=== PATIENT | male | born 1980 | race Hispanic/Latino ===

== ENCOUNTER 2018-04-10 17:46 | Emergency (ER) | payer BC ==
[2018-04-10] MEDS ORDERED: DEXAMETHASONE 10 MG/ML VIAL ONE (18:30)
[2018-04-10] MEDS ORDERED: DIAZEPAM 5 MG TABLET ONE (18:31)
[2018-04-10] MEDS ORDERED: HYDROCODONE/APAP 10/325 TAB ONE (18:31)
[2018-04-10] MEDS ORDERED: KETOROLAC 30 MG/ML INJ ONE (18:32)
--- NOTE | 2018-04-10 19:18 | RAD REPORT ---
EXAM DESCRIPTION: RAD - Lumbar Spine 3 Views - 04/10/2018 6:54 pm CLINICAL HISTORY: Back pain FINDINGS: The alignment of the lumbar spine is satisfactory. No fracture or dislocation is seen. Minimal spondylosis involves the distal lumbar spine. Six lumbar vertebra are present with sacralizat ion of L6
--- NOTE | 2018-04-10 19:30 | ER ---
Nurse's Notes [facility] Name: Francisco Dean Age: 37 yrs Sex: Male : 1980 Arrival Date: 04/10/2018 Time: 17:50 Bed 26 Private MD: Diagnosis: Sprain of ligaments of lumbar spine Presentation: 04/10 17:50 Presenting complaint: Patient states: low back pain started 2-3 days ago. Denies sv injury. Transition of care: patient was not received from another setting of care. Onset of symptoms was April 08, 2018. Care prior to arrival: None. 17:50 Method Of Arrival: Ambulatory sv 17:50 Acuity: WALESKA 4 sv 18:06 Risk Assessment: Do you want to hurt yourself or someone else? Patient reports no eb1 desire to harm self or others. Initial Sepsis Screen: Does the patient meet any 2 criteria? No. Patient's initial sepsis screen is negative. Does the patient have a suspected source of infection? No. Patient's initial sepsis screen is negative. Historical: - Allergies: 17:52 No Known Allergies; sv - Home Meds: 17:52 None [Active]; sv - PMHx: 17:52 L3,4,5 bulging; knee pain; sv - PSHx: 17:52 Knee surgery; sv - Immunization history:: Adult Immunizations up to date. - Social history:: Smoking status: Patient/guardian denies using tobacco. - Ebola Screening: : No symptoms or risks identified at this time. Screenin:06 Abuse screen: Denies threats or abuse. Nutritional screening: No deficits noted. eb1 Tuberculosis screening: No symptoms or risk factors identified. Fall Risk None identified. Assessment: 18:04 General: Appears uncomfortable, obese, Behavior is calm, cooperative, appropriate for eb1 age. Pain: Complains of pain in back. Neuro: Level of Consciousness is awake, alert, obeys commands, Oriented to person, place, time, situation, Appropriate for age. Cardiovascular: No deficits noted. Respiratory: No deficits noted. GI: No deficits noted. : No deficits noted. Musculoskeletal: Reports pain in lumbar area. Vital Signs: 17:52 BP 146 / 96 RA Sitting (auto/lg); Pulse 92; Resp 20; Temp 98.6(TE); Pulse Ox 93% ; sv Weight 161.03 kg; Height 6 ft. 0 in. (182.88 cm); Pain 8/10; 19:25 BP 106 / 62; Pulse 70; Resp 18; Pulse Ox 94% on R/A; eb1 17:52 Body Mass Index 48.15 (161.03 kg, 182.88 cm) ED Course: 17:50 Patient arrived in ED. sv 17:51 Triage completed. 17:52 Arm band placed on left wrist. 17:57 Irineo Morales PA is PHCP. [facility] 17:57 Des Mcallister MD is Attending Physician. [facility] 18:07 Patient has correct armband on for positive identification. eb1 18:54 Lumbar Spine (3 Views) XRAY In Process Unspecified. EDMS 18:55 X-ray completed. Patient tolerated procedure well. Patient moved back from radiology. 1 19:26 No provider procedures requiring assistance completed. eb1 19:45 Patient did not have IV access during this emergency room visit. eb1 Administered Medications: 18:33 Drug: Brushton 10 mg-325 mg 1 tabs Route: PO; eb1 19:47 Follow up: Response: No adverse reaction eb1 18:33 Drug: Valium 5 mg Route: PO; eb1 19:47 Follow up: Response: No adverse reaction eb1 18:36 Drug: Dexamethasone 10 mg Route: IM; Site: left gluteus; eb1 19:46 Follow up: Response: No adverse reaction eb1 18:37 Drug: Ketorolac 60 mg Route: IM; Site: left gluteus; eb1 19:47 Follow up: Response: No adverse reaction eb1 Outcome: 19:29 Discharge ordered by . [facility] 19:46 Discharged to home ambulatory, with family. eb1 19:46 Condition: stable 19:46 Discharge instructions given to patient, family, Instructed on discharge instructions, follow up and referral plans. medication usage, Demonstrated understanding of instructions, follow-up care, medications, Prescriptions given X 2. 19:47 Patient left the ED. eb1 Signatures: Dispatcher [employer] Lois Das RN RN Irineo Morales PA PA jmm Harvey, Martha [facility] Thais Enrique RN RN eb1
--- NOTE | 2018-04-10 19:30 | EDPHYS ---
Physician Documentation [facility] Name: Francisco Dean Age: 37 yrs Sex: Male : 1980 Arrival Date: 04/10/2018 Time: 17:50 Bed 26 Private MD: ED Physician Des Mcallister HPI: 04/10 18:26 This 37 yrs old Male presents to ER via Ambulatory with complaints of Back jmm Pain. 18:26 The patient presents with pain that is acute. The symptoms are located in the low back. jmm Onset: The symptoms/episode began/occurred gradually, 3 day(s) ago. The pain does not radiate. Associated signs and symptoms: Pertinent negatives: dysuria, fever, hematuria, incontinence, numbness, tingling, urinary retention, weakness. This is a 37 year old male with no chronic medical conditions that presents to the ED with midline low back pain worsening with change in position. Patient states having a history of bulging discs. . Historical: - Allergies: 17:52 No Known Allergies; sv - Home Meds: 17:52 None [Active]; sv - PMHx: 17:52 L3,4,5 bulging; knee pain; sv - PSHx: 17:52 Knee surgery; sv - Immunization history:: Adult Immunizations up to date. - Social history:: Smoking status: Patient/guardian denies using tobacco. - Ebola Screening: : No symptoms or risks identified at this time. ROS: 20:30 Constitutional: Negative for fever, chills, and weight loss, Cardiovascular: Negative jmm for chest pain, palpitations, and edema, Respiratory: Negative for shortness of breath, cough, wheezing, and pleuritic chest pain, Abdomen/GI: Negative for abdominal pain, nausea, vomiting, diarrhea, and constipation. 20:30 Skin: Negative for injury, rash, and discoloration. 20:30 Constitutional: Positive for 20:30 Back: Positive for pain at rest, pain with movement. 20:30 : Negative for urinary symptoms, hematuria, flank pain, testicular pain 20:30 Neuro: Negative for numbness, tingling, weakness. 20:30 All other systems are negative. Exam: 20:30 Head/Face: atraumatic. jmm 20:30 Constitutional: The patient appears alert, awake, uncomfortable. 20:30 Cardiovascular: Rate: normal, Rhythm: regular, Pulses: no pulse deficits are appreciated. 20:30 Respiratory: the patient does not display signs of respiratory distress, Respirations: normal. 20:30 Abdomen/GI: Inspection: obese Palpation: abdomen is soft and non-tender. 20:30 Back: midline tenderness appreciated, no cva tenderness. 20:30 Musculoskeletal/extremity: full extension appreciated of the great toes bilaterally. 20:30 Neuro: Orientation: is normal, Mentation: is normal, Motor: strength is normal, Gait: is steady. Vital Signs: 17:52 BP 146 / 96 RA Sitting (auto/lg); Pulse 92; Resp 20; Temp 98.6(TE); Pulse Ox 93% ; sv Weight 161.03 kg; Height 6 ft. 0 in. (182.88 cm); Pain 8/10; 19:25 BP 106 / 62; Pulse 70; Resp 18; Pulse Ox 94% on R/A; eb1 17:52 Body Mass Index 48.15 (161.03 kg, 182.88 cm) sv MDM: 18:25 Patient medically screened. [facility] 20:30 Differential diagnosis: muscle spasm, lumbar strain, disc herniation. Data reviewed: [facility] vital signs, nurses notes, radiologic studies, plain films. ED course: After administration of analgesics the patient states feeling much better. The patient is able to ambulate without difficulty. PE findings along with HPI are not concerning for cord compression/cauda equina. Patient will be prescribed muscle relaxers and anti inflammatories and is advised to follow up with PCP for reevaluation. The patient understood and agrees with the plan of care. . 03 18:26 Order name: Lumbar Spine (3 Views) XRAY; Complete Time: 19:23 [facility] Administered Medications: 18:33 Drug: Jamison 10 mg-325 mg 1 tabs Route: PO; eb1 19:47 Follow up: Response: No adverse reaction eb1 18:33 Drug: Valium 5 mg Route: PO; eb1 19:47 Follow up: Response: No adverse reaction eb1 18:36 Drug: Dexamethasone 10 mg Route: IM; Site: left gluteus; eb1 19:46 Follow up: Response: No adverse reaction eb1 18:37 Drug: Ketorolac 60 mg Route: IM; Site: left gluteus; eb1 19:47 Follow up: Response: No adverse reaction eb1 Disposition: 04/10/18 19:29 Discharged to Home. Impression: Sprain of ligaments of lumbar spine. - Condition is Stable. - Discharge Instructions: Back Pain, Adult. - Prescriptions for Ibuprofen 800 mg Oral Tablet - take 1 tablet by ORAL route every 8 hours As needed take with food; 30 tablet. orphenadrine citrate 100 mg Oral Tablet Sustained Release - take 1 tablet by ORAL route 2 times per day As needed; 20 tablet. - Medication Reconciliation Form, Thank You Letter, Antibiotic Education, Prescription Opioid Use, Work release form form. - Follow up: Private Physician; When: 1 - 2 days; Reason: Re-evaluation by your physician. - Notes: Please follow up with your primary care provider in 1 to 2 days for reevaluation. Please return to the ED if you develop increased pain, weakness, difficulty with urination or bowel movements or any other concering symptoms. Addendum: 04/14/2018 12:15 Co-signature as Attending Physician, Des Mcallister MD. g s Signatures: Dispatcher [employer] Lois Das RN RN Irineo Bassett PA PA jmm Starr, Gregory, MD MD gs Basinger, Emily, RN RN eb1 Corrections: (The following items were deleted from the chart) 04/10 19:47 19:29 04/10/2018 19:29 Discharged to Home. Impression: Sprain of ligaments of lumbar eb1 spine. Condition is Stable. Forms are Medication Reconciliation Form, Thank You Letter, Antibiotic Education, Prescription Opioid Use. Follow up: Private Physician; When: 1 - 2 days; Reason: Re-evaluation by your physician. blank
== END 2018-04-10 19:47 | disposition home or self-care (01) ==
LOC: ER 17:46
DX: S33.5XXA Sprain of ligaments of lumbar spine, initial encounter (principal)
CPT/HCPCS: 72100; 96372; 99283; J1100

== ENCOUNTER 2019-02-23 23:53 | Emergency (ER) | payer BC ==
[2019-02-24] MEDS ORDERED: KETOROLAC 30 MG/ML INJ ONE (00:46)
--- NOTE | 2019-02-24 01:04 | EDPHYS ---
Physician Documentation [facility] Name: Francisco Dean Age: 38 yrs Sex: Male : 1980 Arrival Date: 02/23/2019 Time: 23:54 Bed 8 Private MD: Nikolas Alexandra T ED Physician Ishan Smalls HPI: 02/24 00:27 This 38 yrs old Male presents to ER via Wheelchair with complaints of Back cp Pain. 00:27 The patient presents with pain that is acute, with no known mechanism of injury, and cp decreased range of motion. The symptoms are located in the low back. 00:27 Onset: The symptoms/episode began/occurred today. The pain does not radiate. Associated cp signs and symptoms: Pertinent negatives: abdominal pain, constipation, dysuria, fever, hematuria, incontinence, numbness, urinary retention, weakness. 00:27 The problem was sustained when bending over, while playing with grandchildren. cp Modifying factors: the patient symptoms are aggravated by movement. Severity of symptoms: in the emergency department the symptoms are unchanged, despite home interventions. Historical: - Allergies: 00:03 No Known Allergies; lp1 - Home Meds: 00:03 naproxen Oral [Active]; lp1 - PMHx: 00:03 knee pain; L3,4,5 bulging; lp1 - PSHx: 00:03 Knee surgery; lp1 - Immunization history:: Adult Immunizations up to date. - Social history:: Smoking status: Patient/guardian denies using tobacco. - Ebola Screening: : No symptoms or risks identified at this time. ROS: 00:35 Constitutional: Negative for body aches, chills, fever, poor PO intake. cp 00:35 Eyes: Negative for injury, pain, redness, and discharge. cp 00:35 ENT: Negative for drainage from ear(s), ear pain, sore throat, difficulty swallowing, difficulty handling secretions. 00:35 Cardiovascular: Negative for chest pain, edema, palpitations. 00:35 Respiratory: Negative for cough, shortness of breath, wheezing. 00:35 Abdomen/GI: Negative for abdominal pain, vomiting, diarrhea, constipation, black/tarry stool, rectal bleeding, bowel incontinence. 00:35 Back: Positive for pain at rest, pain with movement, of the lumbar area. 00:35 : Negative for urinary symptoms, flank pain, difficulty urinating, bladder incontinence, testicular pain 00:35 Skin: Negative for rash. 00:35 Neuro: Negative for altered mental status, dizziness, headache, numbness, weakness. 00:35 All other systems are negative. Exam: 00:40 Constitutional: The patient appears in no acute distress, alert, awake, cp non-diaphoretic, non-toxic, well developed, well nourished, obese. 00:40 Head/Face: Normocephalic, atraumatic. cp 00:40 Eyes: Periorbital structures: appear normal, Conjunctiva: normal, no exudate, no cp injection, Sclera: no appreciated abnormality, Lids and lashes: appear normal, bilaterally. 00:40 ENT: External ear(s): are unremarkable, Nose: is normal, Mouth: Lips: moist, Oral mucosa: moist, Posterior pharynx: Airway: no evidence of obstruction, patent. 00:40 Neck: ROM/movement: is normal, is supple, without pain, no range of motions limitations, no meningismus, no nuchal rigidity. 00:40 Chest/axilla: Inspection: normal, Palpation: is normal, no crepitus, no tenderness. 00:40 Cardiovascular: Rate: tachycardic, Rhythm: regular. 00:40 Respiratory: the patient does not display signs of respiratory distress, Respirations: normal, no use of accessory muscles, no retractions, no splinting, no tachypnea, labored breathing, is not present, Breath sounds: are clear throughout, no decreased breath sounds, no stridor, no wheezing. 00:40 Abdomen/GI: Inspection: obese Palpation: abdomen is soft and non-tender, in all quadrants. 00:40 Back: pain, that is moderate, of the lumbar area, ROM is painful, with all movement. 00:40 Neuro: Orientation: to person, place \T\ time. Mentation: is normal, Motor: moves all fours, strength is normal, Sensation: is normal, Gait: is steady, Deep tendon reflexes are 2+ (normal) in the right patellar, right Achilles, left patellar and left Achilles. Vital Signs: 00:03 BP 176 / 103; Pulse 100; Resp 20; Temp 97.7; Pulse Ox 99% on R/A; Weight 165.56 kg; lp1 Height 6 ft. 0 in. (182.88 cm); Pain 10/10; 01:00 BP 118 / 70; Pulse 88; Resp 20; Pulse Ox 99% on R/A; ea 00:03 Body Mass Index 49.50 (165.56 kg, 182.88 cm) lp1 MDM: 00:14 Patient medically screened. cp 00:30 Differential diagnosis: chronic back pain, Pyelonephritis ruptured disc, spinal injury, cp sprain, Ureterolithiasis spinal stenosis, cauda equina. 01:02 Data reviewed: vital signs, nurses notes, and as a result, I will discharge patient. cp 01:02 Counseling: I had a detailed discussion with the patient and/or guardian regarding: the cp historical points, exam findings, and any diagnostic results supporting the discharge/admit diagnosis, the need for outpatient follow up, a family practitioner, to return to the emergency department if symptoms worsen or persist or if there are any questions or concerns that arise at home. Response to treatment: the patient's symptoms have mildly improved after treatment, and as a result, I will discharge patient. Administered Medications: 00:37 Drug: TORadol 60 mg Route: IM; Site: left deltoid; tl2 01:00 Follow up: Response: No adverse reaction; Pain is decreased ea Disposition: 03:30 Co-signature as Attending Physician, Ishan Smalls MD Available for consultation at ps1 all times. . Disposition: 02/24/19 01:03 Discharged to Home. Impression: Low back pain. - Condition is Stable. - Discharge Instructions: Back Pain, Adult, Back Exercises, [id number], Heat Therapy. - Prescriptions for Tylenol- Codeine #3 300-30 mg Oral Tablet - take 2 tablets by ORAL route every 8 hours As needed no driving while taking medications; 15 tablet. Cyclobenzaprine 10 mg Oral Tablet - take 1 tablet by ORAL route every 8 hours As needed no driving while taking medications; 20 tablet. Medrol (Ac) 4 mg Oral Tablets, Dose Pack - take 1 tablet by ORAL route as directed - follow package instructions; 1 packet. - Medication Reconciliation Form, Thank You Letter, Antibiotic Education, Prescription Opioid Use, Work release form form. - Follow up: Private Physician; When: 2 - 3 days; Reason: Recheck today's complaints. - Problem is new. - Symptoms have improved. Signatures: Bella Etienne RN RN lp1 Merlin Sales PA PA cp Ariana Gaston, RN RN tl2 Miracle Marinelli RN RN ea Ishan Smalls MD MD ps1 Corrections: (The following items were deleted from the chart) 01:17 01:03 02/24/2019 01:03 Discharged to Home. Impression: Low back pain. Condition is ea Stable. Forms are Medication Reconciliation Form, Thank You Letter, Antibiotic Education, Prescription Opioid Use. Follow up: Private Physician; When: 2 - 3 days; Reason: Recheck today's complaints. Problem is new. Symptoms have improved. cp
--- NOTE | 2019-02-24 01:04 | ER ---
Nurse's Notes [facility] Name: Francisco Dean Age: 38 yrs Sex: Male : 1980 Arrival Date: 02/23/2019 Time: 23:54 Bed 8 Private MD: Nikolas Alexandra T Diagnosis: Low back pain Presentation: 02/24 00:00 Presenting complaint: Patient states: Low mid back pain since the afternoon that has lp1 worsened; "They've said I have arthritis in my back"; Patient denies any trauma to back;. Transition of care: patient was not received from another setting of care. Onset of symptoms was February 24, 2019. Risk Assessment: Do you want to hurt yourself or someone else? Patient reports no desire to harm self or others. Initial Sepsis Screen: Does the patient meet any 2 criteria? No. Patient's initial sepsis screen is negative. Does the patient have a suspected source of infection? No. Patient's initial sepsis screen is negative. Care prior to arrival: None. 00:00 Method Of Arrival: Wheelchair lp1 00:00 Acuity: WALESKA 3 lp1 Historical: - Allergies: 00:03 No Known Allergies; lp1 - Home Meds: 00:03 naproxen Oral [Active]; lp1 - PMHx: 00:03 knee pain; L3,4,5 bulging; lp1 - PSHx: 00:03 Knee surgery; lp1 - Immunization history:: Adult Immunizations up to date. - Social history:: Smoking status: Patient/guardian denies using tobacco. - Ebola Screening: : No symptoms or risks identified at this time. Screenin:14 Abuse screen: Denies threats or abuse. Nutritional screening: No deficits noted. tl2 Tuberculosis screening: No symptoms or risk factors identified. Fall Risk None identified. Assessment: 00:14 General: Appears in no apparent distress. uncomfortable, Behavior is cooperative, tl2 appropriate for age, anxious, restless. Pain: Complains of pain in lumbar area, left low back and right low back. Neuro: Level of Consciousness is awake, alert, obeys commands, Oriented to person, place, time, situation. Cardiovascular: Denies chest pain. Respiratory: Airway is patent Respiratory effort is even, unlabored, Respiratory pattern is regular, symmetrical. GI: No signs and/or symptoms were reported involving the gastrointestinal system. : No signs and/or symptoms were reported regarding the genitourinary system. Derm: Skin is pink, warm \\T\\ dry. Musculoskeletal: Range of motion: limited in back. 01:10 Reassessment: Patient and/or family updated on plan of care and expected duration. Pain ea level reassessed. Patient is alert, oriented x 3, equal unlabored respirations, skin warm/dry/pink. Discharge instructions given to patient, verbalized the understanding of instructions Patient states symptoms have improved. Vital Signs: 00:03 BP 176 / 103; Pulse 100; Resp 20; Temp 97.7; Pulse Ox 99% on R/A; Weight 165.56 kg; lp1 Height 6 ft. 0 in. (182.88 cm); Pain 10/10; 01:00 BP 118 / 70; Pulse 88; Resp 20; Pulse Ox 99% on R/A; ea 00:03 Body Mass Index 49.50 (165.56 kg, 182.88 cm) lp1 ED Course: 02/23 23:54 Patient arrived in ED. am2 23:54 Nikolas Alexandra MD is Private Physician. am2 04 00:00 Merlin Sales PA is [facility]. cp 00:00 Ishan Smalls MD is Attending Physician. cp 00:02 Triage completed. lp1 00:02 Arm band placed on left wrist. lp1 00:14 Patient has correct armband on for positive identification. Bed in low position. Call tl2 light in reach. Side rails up X 1. 01:16 No provider procedures requiring assistance completed. Patient did not have IV access ea during this emergency room visit. Administered Medications: 00:37 Drug: TORadol 60 mg Route: IM; Site: left deltoid; tl2 01:00 Follow up: Response: No adverse reaction; Pain is decreased ea Outcome: 01:03 Discharge ordered by MD. cp 01:16 Discharged to home ambulatory. ea 01:16 Condition: improved 01:16 Discharge instructions given to patient, Instructed on discharge instructions, follow up and referral plans. medication usage, Demonstrated understanding of instructions, follow-up care, medications. 01:17 Patient left the ED. ea Signatures: Bella Etienne RN RN lp1 Merlin Sales PA PA cp Knox, Taylor, RN RN tl2 Adry Bruner am2 Miracle Marinelli, RN RN ea Corrections: (The following items were deleted from the chart) 00:05 00:03 BP 176 / 103; Pulse 100bpm; Resp 20bpm; Pulse Ox 99% RA; 165.56 kg; Height 6 ft. lp1 0 in.; BMI: 49.5; Pain 10/10; lp1
== END 2019-02-24 01:17 | disposition home or self-care (01) ==
LOC: ER 23:53
DX: M54.5 Low back pain (principal)
CPT/HCPCS: 96372; 99283

== ENCOUNTER 2019-04-28 21:51 | Emergency (ER) | payer BC ==
[2019-04-28] MEDS ORDERED: NA CHLORIDE 0.9% 1,000 ML ONE (23:08)
[2019-04-28] MEDS ORDERED: KETOROLAC 30 MG/ML INJ ONE (23:08)
[2019-04-28] MEDS ORDERED: MECLIZINE HCL 12.5 MG TAB ONE (23:08)
[2019-04-28] MEDS ORDERED: DIPHENHYDRAMINE 50 MG/ML VIAL ONE (23:08)
[2019-04-28] MEDS ORDERED: METOCLOPRAMIDE 10 MG/2mL INJ ONE (23:29)
[2019-04-28 23:34] LABS: Basophils % 0.5 % (0-1.3); Eosinophils % 2.1 % (0-4.4); Hematocrit 46.1 % (39.6-49.0); Lymphocytes % 25.1 % (15.3-44.8); MPV 8.7 fL (7.6-11.3); Monocytes % 6.9 % (3.3-12.3); RBC Red Blood Cell Count 5.08 M/uL (4.33-5.43)
[2019-04-28] MEDS ORDERED: NA CHLORIDE 0.9% 50 ML IV ONE (23:34)
[2019-04-28 23:49] LABS: Albumin 3.7 g/dL (3.4-5.0); Bilirubin Total 0.6 mg/dL (0.2-1.0); Potassium 3.8 mmol/L (3.5-5.1); Protein, Total 7.6 g/dL (6.4-8.2)
--- NOTE | 2019-04-29 00:22 | ER ---
Nurse's Notes [facility] Name: Francisco Dean Age: 38 yrs Sex: Male : 1980 Arrival Date: 04/28/2019 Time: 21:57 Bed 8 Private MD: Nikolas Alexandra T Diagnosis: Benign paroxysmal vertigo, bilateral Presentation: 04/28 22:18 Presenting complaint: Patient states: "I am having pressure in my head, like behind my jd3 eyes as if a head cold or something and it is hard to focus with my eyes> I also have been having dizzy spells.". Transition of care: patient was not received from another setting of care. Onset of symptoms was April 28, 2019. Risk Assessment: Do you want to hurt yourself or someone else? Patient reports no desire to harm self or others. Initial Sepsis Screen: Does the patient meet any 2 criteria? No. Patient's initial sepsis screen is negative. Does the patient have a suspected source of infection? No. Patient's initial sepsis screen is negative. Care prior to arrival: None. 22:18 Method Of Arrival: Ambulatory jd3 22:18 Acuity: WALESKA 4 jd3 Historical: - Allergies: 22:20 No Known Allergies; jd3 - Home Meds: 22:20 Naproxen Oral [Active]; jd3 - PMHx: 22:20 knee pain; L3,4,5 bulging; jd3 - PSHx: 22:20 Knee surgery; jd3 - Immunization history:: Adult Immunizations up to date. - Social history:: Smoking status: Patient uses tobacco products, vapes, Patient/guardian denies using alcohol, street drugs, The patient lives with family. - Ebola Screening: : Patient negative for fever greater than or equal to 101.5 degrees Fahrenheit, and additional compatible Ebola Virus Disease symptoms. - Family history:: not pertinent. Screenin:15 Abuse screen: Denies threats or abuse. Denies injuries from another. Nutritional aa1 screening: No deficits noted. Tuberculosis screening: No symptoms or risk factors identified. Fall Risk None identified. Assessment: 22:15 General: Appears in no apparent distress. comfortable, Behavior is calm, cooperative, aa1 appropriate for age. Pain: Denies pain. Neuro: Level of Consciousness is awake, alert, obeys commands, Oriented to person, place, time, situation, Moves all extremities. Full function Gait is steady, Speech is normal, Facial symmetry appears normal, Pupils are PERRLA, Reports dizziness, headache. Cardiovascular: Heart tones S1 S2 present Rhythm is regular. Respiratory: Airway is patent Respiratory effort is even, unlabored, Respiratory pattern is regular, symmetrical. GI: No signs and/or symptoms were reported involving the gastrointestinal system. : No signs and/or symptoms were reported regarding the genitourinary system. EENT: No signs and/or symptoms were reported regarding the EENT system. Derm: Skin is intact, is healthy with good turgor, Skin is pink, warm \\T\\ dry. Musculoskeletal: Circulation, motion, and sensation intact. Capillary refill < 3 seconds. 23:30 Reassessment: Patient appears in no apparent distress at this time. Patient and/or aa1 family updated on plan of care and expected duration. Pain level reassessed. Patient is alert, oriented x 3, equal unlabored respirations, skin warm/dry/pink. Awaiting CT results. 04/29 00:30 Reassessment: Patient appears in no apparent distress at this time. Patient is alert, aa1 oriented x 3, equal unlabored respirations, skin warm/dry/pink. Discussed d/c \\T\\ f/u instructions with pt \\T\\ spouse; denies questions or concerns at this time. Amb to lobby with steady gait Patient states feeling better. Vital Signs: 04/28 22:20 BP 158 / 96; Pulse 91; Resp 19 S; Temp 98.2(TE); Pulse Ox 98% on R/A; Weight 165.56 kg jd3 (R); Height 6 ft. 0 in. (182.88 cm) (R); Pain 0/10; 23:30 BP 133 / 57; Pulse 78; Resp 18; Pulse Ox 96% on R/A; Pain 0/10; aa1 04/29 00:30 BP 132 / 72; Pulse 81; Resp 18; Temp 98.4; Pulse Ox 97% on R/A; Pain 0/10; aa1 04/28 22:20 Body Mass Index 49.50 (165.56 kg, 182.88 cm) jd3 ED Course: 04/28 21:57 Patient arrived in ED. es 21:57 Nikolas Alexandra MD is Private Physician. es 22:04 Umesh Mckeon MD is Attending Physician. ma2 22:15 Patient has correct armband on for positive identification. Bed in low position. Call aa1 light in reach. Pulse ox on. NIBP on. 22:19 Triage completed. jd3 22:20 Arm band placed on. jd3 22:52 Alysia Robles, RN is Primary Nurse. aa1 22:53 CT completed. Patient tolerated procedure well. Patient moved to CT. Patient moved back sc from CT. 22:57 Missed attempt(s): 20 gauge in right antecubital area. Bleeding controlled, band aid aa1 applied, catheter tip intact. 23:00 CT Head Brain wo Cont In Process Unspecified. EDMS 23:05 Initial lab(s) drawn, by me, sent to lab. Inserted saline lock: 20 gauge in left bb antecubital area, using aseptic technique. Blood collected. 04/29 00:32 No provider procedures requiring assistance completed. IV discontinued, intact, aa1 bleeding controlled, No redness/swelling at site. Pressure dressing applied. Administered Medications: 04/28 23:15 Drug: Meclizine 50 mg Route: PO; 04/29 00:15 Follow up: Response: No adverse reaction; Marked relief of symptoms aa1 04/28 23:16 Drug: NS 0.9% 1000 ml Route: IV; Rate: 1 bolus; Site: left antecubital; 04/29 00:42 Follow up: IV Status: Completed infusion; IV Intake: 1000ml aa1 04/28 23:17 Drug: Benadryl 25 mg Route: IVP; Site: left antecubital; 04/29 00:17 Follow up: Response: No adverse reaction; Marked relief of symptoms aa1 04/28 23:17 Drug: TORadol 30 mg Route: IVP; Site: left antecubital; 04/29 00:17 Follow up: Response: No adverse reaction; Marked relief of symptoms aa1 04/28 23:29 Drug: Reglan 20 mg Route: IVP; Site: left antecubital; [facility] 04/29 00:29 Follow up: Response: No adverse reaction; Marked relief of symptoms aa1 Intake: 00:42 IV: 1000ml; Total: 1000ml. aa1 Outcome: 00:21 Discharge ordered by . ma2 00:32 Discharged to home ambulatory, with significant other. aa1 00:32 Condition: good 00:32 Discharge instructions given to patient, significant other, Instructed on discharge instructions, follow up and referral plans. medication usage, Demonstrated understanding of instructions, follow-up care, medications, Prescriptions given X 2. 00:42 Patient left the ED. aa1 Signatures: Dispatcher [employer] Alysia Davila RN RN aa1 Corrine Ramirez Brenda RN RN Chai House Jonathon, RN RN jd3 Umesh Mckeon MD MD ma2
--- NOTE | 2019-04-29 00:23 | EDPHYS ---
Physician Documentation [facility] Name: Francisco Dean Age: 38 yrs Sex: Male : 1980 Arrival Date: 04/28/2019 Time: 21:57 Bed 8 Private MD: Nikolas Alexandra T ED Physician Umesh Mckeon HPI: 04/29 00:18 This 38 yrs old Male presents to ER via Ambulatory with complaints of EYE ma2 PRESSURE, Dizziness. 00:18 The patient presents with vertigo. Onset: The symptoms/episode began/occurred suddenly, ma2 2 month(s) ago. Associated signs and symptoms: Pertinent negatives: ataxia, blurred vision, combativeness, focal weakness, . Severity of symptoms: At their worst the symptoms were mild in the emergency department the symptoms have resolved. The patient has experienced similar episodes in the past. here with spinning episodes on/off and headache has had this before many times . Historical: - Allergies: 04/28 22:20 No Known Allergies; jd3 - Home Meds: 22:20 Naproxen Oral [Active]; jd3 - PMHx: 22:20 knee pain; L3,4,5 bulging; jd3 - PSHx: 22:20 Knee surgery; jd3 - Immunization history:: Adult Immunizations up to date. - Social history:: Smoking status: Patient uses tobacco products, vapes, Patient/guardian denies using alcohol, street drugs, The patient lives with family. - Ebola Screening: : Patient negative for fever greater than or equal to 101.5 degrees Fahrenheit, and additional compatible Ebola Virus Disease symptoms. - Family history:: not pertinent. ROS: 04/29 00:18 Constitutional: Negative for fever, chills, and weight loss, Abdomen/GI: Negative for ma2 abdominal pain, nausea, diarrhea, and constipation, : Negative for injury, bleeding, discharge, and swelling, Neuro: Negative for headache, weakness, numbness, tingling, and seizure. All other systems are negative. 00:18 Neuro: Positive for dizziness, Negative for hearing loss, seizure activity, syncope, ma2 tremor. Exam: 00:18 Constitutional: This is a well developed, well nourished patient who is awake, alert, ma2 and in no acute distress. Chest/axilla: Normal chest wall appearance and motion. Nontender with no deformity. No lesions are appreciated. Cardiovascular: Regular rate and rhythm with a normal S1 and S2. No gallops, murmurs, or rubs. Normal PMI, no JVD. No pulse deficits. Respiratory: Lungs have equal breath sounds bilaterally, clear to auscultation and percussion. No rales, rhonchi or wheezes noted. No increased work of breathing, no retractions or nasal flaring. Abdomen/GI: Soft, non-tender, with normal bowel sounds. No distension or tympany. No guarding or rebound. No evidence of tenderness throughout. Skin: Warm, dry with normal turgor. Normal color with no rashes, no lesions, and no evidence of cellulitis. MS/ Extremity: Pulses equal, no cyanosis. Neurovascular intact. Full, normal range of motion. Neuro: Awake and alert, GCS 15, oriented to person, place, time, and situation. Cranial nerves II-XII grossly intact. Motor strength 5/5 in all extremities. Sensory grossly intact. Cerebellar exam normal. Normal gait. Vital Signs: 04/28 22:20 BP 158 / 96; Pulse 91; Resp 19 S; Temp 98.2(TE); Pulse Ox 98% on R/A; Weight 165.56 kg jd3 (R); Height 6 ft. 0 in. (182.88 cm) (R); Pain 0/10; 23:30 BP 133 / 57; Pulse 78; Resp 18; Pulse Ox 96% on R/A; Pain 0/10; aa1 04/29 00:30 BP 132 / 72; Pulse 81; Resp 18; Temp 98.4; Pulse Ox 97% on R/A; Pain 0/10; aa1 04/28 22:20 Body Mass Index 49.50 (165.56 kg, 182.88 cm) jd3 MDM: 04/28 22:05 Patient medically screened. ma2 04/29 00:18 Differential diagnosis: hypovolemia, idiopathic dizziness, vertigo. Data reviewed: ma2 vital signs, nurses notes. Counseling: I had a detailed discussion with the patient and/or guardian regarding: the historical points, exam findings, and any diagnostic results supporting the discharge/admit diagnosis, the presence of at least one elevated blood pressure reading (>120/80) during this emergency department visit. Response to treatment: the patient's symptoms have resolved after treatment. 04/28 22:28 Order name: CMP; Complete Time: 00:11 wi2 04/28 22:28 Order name: CBC with Diff; Complete Time: 00:11 wi2 04/28 22:28 Order name: CT Head Brain wo Cont ma2 Administered Medications: 04/28 23:15 Drug: Meclizine 50 mg Route: PO; 04/29 00:15 Follow up: Response: No adverse reaction; Marked relief of symptoms aa1 04/28 23:16 Drug: NS 0.9% 1000 ml Route: IV; Rate: 1 bolus; Site: left antecubital; 04/29 00:42 Follow up: IV Status: Completed infusion; IV Intake: 1000ml aa1 04/28 23:17 Drug: Benadryl 25 mg Route: IVP; Site: left antecubital; 04/29 00:17 Follow up: Response: No adverse reaction; Marked relief of symptoms aa1 04/28 23:17 Drug: TORadol 30 mg Route: IVP; Site: left antecubital; bb 04/29 00:17 Follow up: Response: No adverse reaction; Marked relief of symptoms aa1 04/28 23:29 Drug: Reglan 20 mg Route: IVP; Site: left antecubital; d3 04/29 00:29 Follow up: Response: No adverse reaction; Marked relief of symptoms aa1 Disposition: 04/29/19 00:21 Discharged to Home. Impression: Benign paroxysmal vertigo, bilateral. - Condition is Stable. - Discharge Instructions: Dizziness, Vertigo, Form - Excuse from Work, School, or Physical Activity. - Prescriptions for Meclizine 25 mg Oral Tablet - take 1 tablet by ORAL route every 8 hours As needed; 30 tablet. Reglan 10 mg Oral Tablet - take 1 tablet by ORAL route every 6 hours . take 30 minutes before meals and at bedtime; 100 tablet. - Work release form, Medication Reconciliation Form, Thank You Letter, Antibiotic Education, Prescription Opioid Use form. - Follow up: Private Physician; When: Tomorrow; Reason: Continuance of care. Signatures: Dispatcher [employer] EDAlysia Coles RN RN aa1 Brandi Arreola RN RN bb Tristin Morales RN RN jd3 Umesh Mckeon MD MD ma2 Corrections: (The following items were deleted from the chart) 00:42 00:21 04/29/2019 00:21 Discharged to Home. Impression: Benign paroxysmal vertigo, aa1 bilateral. Condition is Stable. Forms are Medication Reconciliation Form, Thank You Letter, Antibiotic Education, Prescription Opioid Use. Follow up: Private Physician; When: Tomorrow; Reason: Continuance of care. ma2
--- NOTE | 2019-05-01 13:15 | RAD REPORT ---
EXAM DESCRIPTION: CT - Head Brain Wo Cont - 04/29/2019 1:24 am CLINICAL HISTORY: Dizziness. COMPARISON: None. TECHNIQUE: CT scan of the brain without IV contrast. This exam was performed according to our depa rtmental dose-optimization program, which includes automated exposure control, adjustment of the mA a nd/or kV according to patient size and/or use of iterative reconstruction technique. FINDINGS: The ventricles, cisterns, and sulci are age-appropriate. No evidence of acute infarction, intracranial hemorrhage, extra-axial fluid collection, or midline shift. No air-fluid levels are seen in the paranasal sinuses to suggest acute sinusitis. No depressed skull fracture. IMPRESSION: No acute intracranial findings. Electronically signed by: Oleg Gutiérrez MD 04/28/2019 11:07 PM CDT Due to temporary technical issues with the PACS/Fluency reporting system, reports are being signed by the in house radiologist as a courtesy to ensure prompt reporting. The interpreting radiologist is f ully responsible for the content of the report.
== END 2019-04-29 00:42 | disposition home or self-care (01) ==
LOC: ER 21:51
DX: H81.13 Benign paroxysmal vertigo, bilateral (principal); Z72.0 Tobacco use
CPT/HCPCS: 36415; 70450; 80053; 85025; 96361; 96374; 96375; 99284; J2765; J7030

== ENCOUNTER 2019-08-20 22:49 | Emergency (ER) | payer BC ==
--- NOTE | 2019-08-21 00:03 | EDPHYS ---
Physician Documentation [facility] Name: Francisco Dean Age: 39 yrs Sex: Male : 1980 Arrival Date: 08/20/2019 Time: 22:52 Bed 15 Private MD: ED Physician Des Mcallister HPI: 08/21 00:00 This 39 yrs old Male presents to ER via Ambulatory with complaints of Headache pm1 and bodyaches. 00:00 The patient or guardian reports flu symptoms, arthralgias, myalgias, no appetite. pm1 Onset: The symptoms/episode began/occurred yesterday. Severity of symptoms: in the emergency department the symptoms are actually worse. Modifying factors: The symptoms are alleviated by nothing, the symptoms are aggravated by nothing. Associated signs and symptoms: Pertinent negatives: chest pain, diarrhea, ear ache, fever, nausea, sore throat, vomiting, shortness of breath. The patient has not experienced similar symptoms in the past. The patient has not recently seen a physician. diagnosed with Flu A and he is concerned that he caught it. Sharing drink and foods with her prior to her official diagnosis. Historical: - Allergies: 08/20 23:07 No Known Allergies; la1 - PMHx: 23:07 knee pain; L3,4,5 bulging; la1 - Immunization history:: Adult Immunizations up to date. - Social history:: Smoking status: Patient/guardian denies using tobacco. - Ebola Screening: : No symptoms or risks identified at this time. ROS: 08/21 00:00 Eyes: Negative for injury, pain, redness, and discharge, ENT: Negative for injury, pm1 pain, and discharge, Neck: Negative for injury, pain, and swelling. Cardiovascular: Negative for chest pain, palpitations, and edema, Abdomen/GI: Negative for abdominal pain, nausea, vomiting, diarrhea, and constipation, Back: Negative for injury and pain, MS/Extremity: Negative for injury and deformity, Skin: Negative for injury, rash, and discoloration, Neuro: Negative for headache, weakness, numbness, tingling, and seizure. Constitutional: Positive for body aches, malaise. Respiratory: Positive for cough, Negative for shortness of breath, sputum production, wheezing. Exam: 00:00 Constitutional: This is a well developed, well nourished patient who is awake, alert, pm1 and in no acute distress. Head/Face: Normocephalic, atraumatic. Eyes: Pupils equal round and reactive to light, extra-ocular motions intact. Lids and lashes normal. Conjunctiva and sclera are non-icteric and not injected. Cornea within normal limits. Periorbital areas with no swelling, redness, or edema. ENT: Nares patent. No nasal discharge, no septal abnormalities noted. Tympanic membranes are normal and external auditory canals are clear. Oropharynx with no redness, swelling, or masses, exudates, or evidence of obstruction, uvula midline. Mucous membranes moist. Neck: Trachea midline, no thyromegaly or masses palpated, and no cervical lymphadenopathy. Supple, full range of motion without nuchal rigidity, or vertebral point tenderness. No Meningismus. Chest/axilla: Normal chest wall appearance and motion. Nontender with no deformity. No lesions are appreciated. Cardiovascular: Regular rate and rhythm with a normal S1 and S2. No gallops, murmurs, or rubs. Normal PMI, no JVD. No pulse deficits. Respiratory: Lungs have equal breath sounds bilaterally, clear to auscultation and percussion. No rales, rhonchi or wheezes noted. No increased work of breathing, no retractions or nasal flaring. Abdomen/GI: Soft, non-tender, with normal bowel sounds. No distension or tympany. No guarding or rebound. No evidence of tenderness throughout. Back: No spinal tenderness. No costovertebral tenderness. Full range of motion. Skin: Warm, dry with normal turgor. Normal color with no rashes, no lesions, and no evidence of cellulitis. MS/ Extremity: Pulses equal, no cyanosis. Neurovascular intact. Full, normal range of motion. 00:00 Neuro: Orientation: is normal, Motor: is normal, Sensation: is normal, no obvious gross deficits, Gait: is steady, at a normal pace, without difficulty. Vital Signs: 08/20 23:07 BP 164 / 98; Pulse 85; Resp 16; Temp 98.7; Pulse Ox 100% on R/A; Weight 163.29 kg; la1 Height 6 ft. 0 in. (182.88 cm); 08/21 00:08 BP 145 / 92; Pulse 81; Resp 15; Temp 98.5; Pulse Ox 100% on R/A; rv 08/20 23:07 Body Mass Index 48.82 (163.29 kg, 182.88 cm) la1 MDM: 08/20 23:23 Patient medically screened. pm1 23:36 Data reviewed: vital signs. Data interpreted: Pulse oximetry: on room air is 100 %. pm1 Interpretation: normal. Counseling: I had a detailed discussion with the patient and/or guardian regarding: the historical points, exam findings, and any diagnostic results supporting the discharge/admit diagnosis. 08/20 23:13 Order name: Flu; Complete Time: 00:02 pm1 Administered Medications: No medications were administered Disposition: 08/21/19 00:02 Discharged to Home. Impression: Influenza due to other identified influenza virus. - Condition is Stable. - Discharge Instructions: Influenza, Adult. - Prescriptions for Tamiflu 75 mg Oral Capsule - take 1 tablet by ORAL route every 12 hours for 5 days; 10 tablet. - Medication Reconciliation Form, Thank You Letter, Antibiotic Education, Prescription Opioid Use, Work release form form. - Follow up: Emergency Department; When: As needed; Reason: Worsening of condition. Follow up: Private Physician; When: 2 - 3 days; Reason: Recheck today's complaints, Continuance of care, Re-evaluation by your physician. - Problem is new. - Symptoms have improved. Signatures: Dispatcher [employer] EDMS Phong Berrios RN RN la1 Iraj Schneider, [employer] pm1 Walter Celeste RN RN rv Corrections: (The following items were deleted from the chart) 08/21 00:09 00:02 08/21/2019 00:02 Discharged to Home. Impression: Influenza due to other rv identified influenza virus. Condition is Stable. Discharge Instructions: Influenza, Adult. Prescriptions for Tamiflu 75 mg Oral Capsule - take 1 tablet by ORAL route every 12 hours for 5 days; 10 tablet. and Forms are Medication Reconciliation Form, Thank You Letter, Antibiotic Education, Prescription Opioid Use. Follow up: Emergency Department; When: As needed; Reason: Worsening of condition. Follow up: Private Physician; When: 2 - 3 days; Reason: Recheck today's complaints, Continuance of care, Re-evaluation by your physician. Problem is new. Symptoms have improved. pm1 00:25 00:09 08/21/2019 00:02 Discharged to Home. Impression: Influenza due to other la1 identified influenza virus. Condition is Stable. Discharge Instructions: Influenza, Adult. Prescriptions for Tamiflu 75 mg Oral Capsule - take 1 tablet by ORAL route every 12 hours for 5 days; 10 tablet. and Forms are Medication Reconciliation Form, Thank You Letter, Antibiotic Education, Prescription Opioid Use, Work release form. Follow up: Emergency Department; When: As needed; Reason: Worsening of condition. Follow up: Private Physician; When: 2 - 3 days; Reason: Recheck today's complaints, Continuance of care, Re-evaluation by your physician. Problem is new. Symptoms have improved. rv
--- NOTE | 2019-08-21 00:03 | ER ---
Nurse's Notes [facility] Name: Francisco Dean Age: 39 yrs Sex: Male : 1980 Arrival Date: 08/20/2019 Time: 22:52 Bed 15 Private MD: Diagnosis: Influenza due to other identified influenza virus Presentation: 08/20 23:06 Presenting complaint: Patient states: malaise, body aches, headache, had flu last la1 week. Transition of care: patient was not received from another setting of care. Onset of symptoms was August 20, 2019. Risk Assessment: Do you want to hurt yourself or someone else? Patient reports no desire to harm self or others. Initial Sepsis Screen: Does the patient meet any 2 criteria? No. Patient's initial sepsis screen is negative. Does the patient have a suspected source of infection? No. Patient's initial sepsis screen is negative. Care prior to arrival: None. 23:06 Method Of Arrival: Ambulatory la1 23:06 Acuity: WALESKA 4 la1 Triage Assessment: 23:49 Headache History: Denies prior headaches. General: Appears in no apparent distress. rv comfortable, Behavior is calm, cooperative. Pain:. Historical: - Allergies: 23:07 No Known Allergies; la1 - PMHx: 23:07 knee pain; L3,4,5 bulging; la1 - Immunization history:: Adult Immunizations up to date. - Social history:: Smoking status: Patient/guardian denies using tobacco. - Ebola Screening: : No symptoms or risks identified at this time. Screenin:49 Abuse screen: Denies threats or abuse. Denies injuries from another. Nutritional rv screening: No deficits noted. Tuberculosis screening: No symptoms or risk factors identified. Fall Risk None identified. Assessment: 23:48 General: Appears in no apparent distress. comfortable, Behavior is calm, cooperative. rv Pain: Complains of pain in general. Neuro: Level of Consciousness is awake, alert, obeys commands, Oriented to person, place, time, situation, Reports headache. Cardiovascular: Patient's skin is warm and dry. Respiratory: Airway is patent. GI: No signs and/or symptoms were reported involving the gastrointestinal system. : No signs and/or symptoms were reported regarding the genitourinary system. EENT: No signs and/or symptoms were reported regarding the EENT system. Derm: Skin is intact. Musculoskeletal: No signs and/or symptoms reported regarding the musculoskeletal system. 08/21 00:09 Reassessment: Patient appears in no apparent distress at this time. General: Appears in rv no apparent distress. comfortable, Behavior is calm, cooperative. Vital Signs: 08/20 23:07 BP 164 / 98; Pulse 85; Resp 16; Temp 98.7; Pulse Ox 100% on R/A; Weight 163.29 kg; la1 Height 6 ft. 0 in. (182.88 cm); 08/21 00:08 BP 145 / 92; Pulse 81; Resp 15; Temp 98.5; Pulse Ox 100% on R/A; rv 08/20 23:07 Body Mass Index 48.82 (163.29 kg, 182.88 cm) la1 ED Course: 08/20 22:52 Patient arrived in ED. cf2 23:07 Triage completed. la1 23:08 Walter Celeste RN is Primary Nurse. rv 23:08 Arm band placed on right wrist. la1 23:13 Iraj Schneider NP is PHCP. pm1 23:13 Des Mcallister MD is Attending Physician. pm1 23:27 Flu Sent. rv 23:50 Patient has correct armband on for positive identification. Bed in low position. Call rv light in reach. Side rails up X 1. Pulse ox on. NIBP on. 08/21 00:09 No provider procedures requiring assistance completed. Patient did not have IV access rv during this emergency room visit. 00:25 Primary Nurse role handed off by Walter Celeste RN la1 00:25 Phong Berrios RN is Primary Nurse. la1 Administered Medications: No medications were administered Outcome: 00:02 Discharge ordered by . pm1 00:09 Discharged to home ambulatory. rv 00:09 Condition: good 00:09 Discharge instructions given to patient, Instructed on discharge instructions, follow up and referral plans. medication usage, Demonstrated understanding of instructions, follow-up care, medications, Prescriptions given X 1. 00:09 Patient left the ED. rv 00:25 Patient left the ED. la1 Signatures: Phong Berrios RN RN la1 Iraj Schneider NP DRUG AND ALCOHOL COUNSELOR pm1 Walter Celeste RN RN rv Alexandria Kent cf2
[2019-08-21 00:41] VITALS: O2SAT 100
[2019-08-21 00:43] VITALS: BP 145/92; TEMP 98.5
== END 2019-08-21 00:25 | disposition home or self-care (01) ==
LOC: ER 22:49
DX: J10.1 Influenza due to other identified influenza virus with other respiratory manifestations (principal)
CPT/HCPCS: 87804; 99283

== ENCOUNTER 2019-09-29 08:11 | Emergency (ER) | payer BC ==
--- OUTSIDE RECORDS SUMMARY | 2019-09-29 08:12 | XMS REPORT ---
:1980 [facility] Address [address] [place] [address] Dr. V[address] [place] [address] Care Team Providers Name Role Phone Unavailable Unavailable Unavailable Problems This patient has no known problems. Allergies, Adverse Reactions, Alerts This patient has no known allergies or adverse reactions. Medications This patient has no known medications.
--- OUTSIDE RECORDS SUMMARY | 2019-09-29 08:12 | XMS REPORT ---
:1980 Author Organization [employer] Care Team Providers Name Role Phone Brian Peres Provider Role Unavailable Allergies, Adverse Reactions, Alerts Substance Reaction Event Type N.K.D.A. Info Not Available Non Drug Allergy Problems Problem Type Condition Code Onset Dates Condition Status Problem Obstructive sleep apnea syndrome G47.33 Active Problem Body mass index (BMI) of 50-59.9 in Z68.43 Active adult Problem PTSD (post-traumatic stress F43.10 Active disorder) Assessment Obstructive sleep apnea syndrome G47.33 Active Assessment PTSD (post-traumatic stress F43.10 Active disorder) Medications Medication Code Code Instructions Start End Status Dosage System Date Date BusPIRone HCl [facility] 47396737518 15 MG Orally May 30, Active 1 tablet Twice a day 2018 HydrOXYzine HCl ND 59511891107 25 MG Orally May 30, Active 1 tablet every 8 hrs 2018 as needed Trazodone HCl [facility] [id number] 50 MG Orally qhs May 30, Active 1 tablet 2019 at bedtime as needed Results No Known Results Summary Purpose [employer] Submission
[2019-09-29] MEDS ORDERED: TETRACAINE HCL 0.5% 4ML OPTH ONE (08:35)
[2019-09-29] MEDS ORDERED: FLUORESCEIN SODIUM 1 MG/WRAP ONE (08:35)
--- NOTE | 2019-09-29 10:05 | RAD REPORT ---
EXAM DESCRIPTION: CTOrbits W/Cont09/29/2019 9:41 am CLINICAL HISTORY: Right eye pain and swelling COMPARISON: None. TECHNIQUE: Computed axial tomography of the sinuses were obtained with coronal and sagittal reconstr uction. 50 cc Isovue-[address] scans are performed using dose optimization technique as appropriate and may include automated exposure control or mA/KV adjustment according to patient size. FINDINGS: Right preseptal swelling is present. The right globe is normal size and density. A radiopaque foreign body is not seen. The retro bulbar fat is clear. Extra-ocular muscles, optic nerve and superior ophthalmic vein appear unremarkable. IMPRESSION: Right preseptal swelling having the appearance of a cellulitis. An abscess is not seen
--- NOTE | 2019-09-29 10:22 | ER ---
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 I finished the job, then I noticed it was beginning to swell." Denies any visual disturbances. Transition of care: patient was not received from another setting of care. Mechanism of Injury: SEE TRIAGE NOTE. The patient denies any loss of vision. Onset of symptoms was September 29, 2019 at 07:10. Risk Assessment: Do you want to hurt yourself or someone else? Patient reports no desire to harm self or others. Initial Sepsis Screen: Does the patient meet any 2 criteria? No. Patient's initial sepsis screen is negative. Does the patient have a suspected source of infection? No. Patient's initial sepsis screen is negative. Care prior to arrival: None. 08:29 Method Of Arrival: Ambulatory ss 08:29 Acuity: WALESKA 2 ss Historical: - Allergies: 08:30 No Known Allergies; ss - Home Meds: 08:30 None [Active]; ss - PMHx: 08:30 knee pain; L3,4,5 bulging; ss - PSHx: 08:30 knee repair; ss - Immunization history:: Adult Immunizations up to date. - Social history:: Smoking status: Patient/guardian denies using tobacco. - Ebola Screening: : Patient denies exposure to infectious person Patient denies travel to an Ebola-affected area in the 21 days before illness onset. Screenin:32 Abuse screen: Denies threats or abuse. Denies injuries from another. Nutritional ss screening: No deficits noted. Tuberculosis screening: Never had TB. Fall Risk None identified. Assessment: 08:32 General: Appears comfortable, Behavior is calm, cooperative. General: Appears obese, ss Denies fever, feeling ill, fatigue, chills. Pain: Complains of pain in right eye Pain currently is 10 out of 10 on a pain scale. Quality of pain is described as aching, tender, throbbing. Neuro: Level of Consciousness is awake, alert, obeys commands, Oriented to person, place, time, situation, Gait is steady, Speech is normal, Pupils are PERRLA. Cardiovascular:. Respiratory: Airway is patent Respiratory effort is even, unlabored, Respiratory pattern is regular, symmetrical. : No signs and/or symptoms were reported regarding the genitourinary system. EENT: Eyes are tearing on inner aspect of conjuctiva of right eye Sclera/Cornea sclera is reddened/ inflammed. Oral mucosa is moist. pt reports symptoms began at 0710 this am. EENT: Denies blurred vision photophobia. Derm: Skin is pink, warm \\T\\ dry. normal. Musculoskeletal: Circulation, motion, and sensation intact. Range of motion: intact in all extremities. 09:32 Reassessment: Patient appears in no apparent distress at this time. wheeled to CT via em wheelchair. 10:33 Reassessment: Patient appears in no apparent distress at this time. Patient and/or em family updated on plan of care and expected duration. Pain level reassessed. Patient is alert, oriented x 3, equal unlabored respirations, skin warm/dry/pink. Patient states feeling better. Vital Signs: 08:30 BP 143 / 101; Pulse 87; Resp 18; Temp 98.1(O); Pulse Ox 97% on R/A; Weight 176.9 kg; ss Height 6 ft. 0 in. (182.88 cm); Pain 10/10; 10:34 BP 142 / 89; Pulse 75; Resp 18; Pulse Ox 99% on R/A; Pain 5/10; em 08:30 Body Mass Index 52.89 (176.90 kg, 182.88 cm) ED Course: 08:13 Patient arrived in ED. mr 08:13 None, None is Private Physician. mr 08:26 Irineo Morales PA is PHCP. [facility] 08:26 Mateo Cuello MD is Attending Physician. [facility] 08:30 Triage completed. ss 08:30 Arm band placed on right wrist. ss 08:32 Patient has correct armband on for positive identification. Bed in low position. Call light in reach. Pulse ox on. NIBP on. 08:32 Patient maintains SpO2 saturation greater than 95% on room air. ss 08:42 Michael Zambrano LVN is Primary Nurse. em 08:49 Radiology exam delayed due to lab results not completed at this time. (BUN/Creatinine). sw 08:55 Initial lab(s) drawn, by me, sent to lab. Inserted saline lock: 22 gauge in left em antecubital area, using aseptic technique. Blood collected. 09:38 Patient moved to [place] via wheelchair. sw 09:40 CT completed. Patient tolerated procedure well. Patient moved back from [place]. sw 09:42 Orbits W/Cont In Process Unspecified. EDMS 10:20 Rafa Hernandez MD is Referral Physician. jmm 10:27 No provider procedures requiring assistance completed. IV discontinued, intact, em bleeding controlled, No redness/swelling at site. Pressure dressing applied. Administered Medications: 08:36 Drug: Tetracaine Drops 0.5 % 1 drops Route: Ophthalmic; Site: right eye; em 08:40 Follow up: Response: No adverse reaction; Pain is decreased em Outcome: 10:21 Discharge ordered by MD. jmm 10:35 Discharged to home ambulatory, with family. em 10:35 Condition: good 10:35 Discharge instructions given to patient, family, Instructed on discharge instructions, follow up and referral plans. medication usage, Demonstrated understanding of instructions, follow-up care, medications, Prescriptions given X 1. 10:35 Patient left the ED. em Signatures: Dispatcher [employer] EDMS Irineo Morales PA PA jmm Rivera, Mary mr Michael Zambrano, BUSINESS CONTINUITY STRATEGY DIRECTOR BUSINESS CONTINUITY STRATEGY DIRECTOR Sameera Mackay RN RN ss Warren, Shannon
--- NOTE | 2019-09-29 10:22 | EDPHYS ---
Physician Documentation [facility] [place] [place] Name: Francisco Dean Age: 39 yrs Sex: Male : 1980 Arrival Date: 09/29/2019 Time: 08:13 Bed 20 Private MD: None, None ED Physician Mateo Cuelol HPI: 09/29 08:34 This 39 yrs old Male presents to ER via Ambulatory with complaints of Eye jmm Injury. 08:34 The patient sustained Unknown. Onset: The symptoms/episode began/occurred acutely, jmm today. Aggravated by nothing. Alleviated by nothing. Associated signs and symptoms: Pertinent negatives: fever. This is a 39 year old male with no chronic medical conditions that presents ot the ED with complaints of right eye pain. 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 Patient irrigated the area for approx 15 minutes. Patient describes sand like fb sensation. . Historical: - Allergies: 08:30 No Known Allergies; ss - Home Meds: 08:30 None [Active]; ss - PMHx: 08:30 knee pain; L3,4,5 bulging; ss - PSHx: 08:30 knee repair; ss - Immunization history:: Adult Immunizations up to date. - Social history:: Smoking status: Patient/guardian denies using tobacco. - Ebola Screening: : Patient denies exposure to infectious person Patient denies travel to an Ebola-affected area in the 21 days before illness onset. ROS: 08:34 Constitutional: Negative for fever, chills, and weight loss. jmm 08:34 Eyes: Positive for pain, redness. 08:34 All other systems are negative. Exam: 08:34 Constitutional: This is a well developed, well nourished patient who is awake, alert, jmm and in no acute distress. Head/Face: atraumatic. 08:34 Neck: Trachea midline, Supple Chest/axilla: Normal chest wall appearance and motion. Cardiovascular: Regular rate and rhythm. No edema appreciated Respiratory: Normal respirations, no respiratory distress appreciated Abdomen/GI: Non distended, soft Back: Normal ROM Skin: General appearance color normal MS/ Extremity: Moves all extremities, no obvious deformities appreciated, no edema noted to the lower extremities Neuro: Awake and alert, normal gait Psych: Behavior is normal, Mood is normal, Patient is cooperative and pleasant 08:34 Eyes: Conjunctiva: injected, Sclera: swelling appreciated. Vital Signs: 08:30 BP 143 / 101; Pulse 87; Resp 18; Temp 98.1(O); Pulse Ox 97% on R/A; Weight 176.9 kg; ss Height 6 ft. 0 in. (182.88 cm); Pain 10/10; 10:34 BP 142 / 89; Pulse 75; Resp 18; Pulse Ox 99% on R/A; Pain 5/10; em 08:30 Body Mass Index 52.89 (176.90 kg, 182.88 cm) ss MDM: 08:27 Patient medically screened. [facility] 10:19 Data reviewed: vital signs, nurses notes. Counseling: I had a detailed discussion with [facility] the patient and/or guardian regarding: the historical points, exam findings, and any diagnostic results supporting the discharge/admit diagnosis, radiology results, the need for outpatient follow up, to return to the emergency department if symptoms worsen or persist or if there are any questions or concerns that arise at home. ED course: Swelling has decreased in the ED. Most likely scleral abrasion. CT negative for FB. Advised to follow up with opthalmology for reevaluation. Patient otherwise given strict return precautions. Patient understood and agrees with the plan of care. . 09/29 08:44 Order name: Creatinine for Radiology; Complete Time: 09:[address] [facility] 09/29 08:47 Order name: Orbits W/Cont; Complete Time: 10:22 EDWA 09/29 08:44 Order name: Saline Lock; Complete Time: 08:[address] [facility] Administered Medications: 08:36 Drug: Tetracaine Drops 0.5 % 1 drops Route: Ophthalmic; Site: right eye; em 08:40 Follow up: Response: No adverse reaction; Pain is decreased em Disposition: 12:16 Co-signature as Attending Physician, Mateo Cuello MD I agree with the assessment and kdr plan of care. Disposition: 09/29/19 10:21 Discharged to Home. Impression: Conjunctival edema, right eye. - Condition is Stable. - Discharge Instructions: Eye Contusion. - Prescriptions for Erythromycin 5 mg/gram (0.5 %) Ophthalmic Ointment - apply 1 centimeter by OPHTHALMIC route 2-3 times daily for 7 days; 1 tube. - Work release form, Medication Reconciliation Form, Thank You Letter, Antibiotic Education, Prescription Opioid Use form. - Follow up: Rafa Hernandez MD; When: 2 - 3 days; Reason: Recheck today's complaints, Continuance of care, Re-evaluation by your physician. Signatures: Dispatcher [employer] Mateo Christianson MD MD kdr Mickail, Joel, PA PA jmm Munoz, Edgar, CARGO SERVICE AGENT CARGO SERVICE AGENT em Sameera Mackay RN RN ss Corrections: (The following items were deleted from the chart) 10:35 10:21 09/29/2019 10:21 Discharged to Home. Impression: Conjunctival edema, right eye. em Condition is Stable. Forms are Medication Reconciliation Form, Thank You Letter, Antibiotic Education, Prescription Opioid Use. Follow up: Rafa Hernandez; When: 2 - 3 days; Reason: Recheck today's complaints, Continuance of care, Re-evaluation by your physician. blank
[2019-09-29 10:42] VITALS: TEMP 98.1
[2019-09-29 10:43] VITALS: BP 142/89; O2SAT 99
== END 2019-09-29 10:35 | disposition home or self-care (01) ==
LOC: ER 08:11
DX: H11.421 Conjunctival edema, right eye (principal)
CPT/HCPCS: 36415; 70481; 99285; Q9967

== ENCOUNTER 2021-05-28 17:55 | Emergency (ER) | payer OTHER, BC ==
--- OUTSIDE RECORDS SUMMARY | 2021-05-28 17:58 | XMS REPORT | Continuity of Care Document ---
:1980 Author Organization [facility] t Address [address] [place] [address] Dr. V[address]. [address] [place] [address] Care Team Providers Name Role Phone Addie FOSTER, A Primary Care Physician Addie FOSTER, A Attending Clinician Doctor Unassigned, Name Attending Clinician Unavailable Collins FOSTER, L Attending Clinician Sanjuana BUCKLEY S Attending Clinician Payers Payer Name Policy Type Policy Number Effective Date Expiration Date S ource ST OFF [facility] RISK [id number] [facility] R[facility]K Branch [id number] -Present [employer] OF [id number] 2017 [place] [facility] [id number] 2017-Pre [phone] [id number], [place] [address]KPL/POS Problems Condition Condition Condition Status Onset Resolution Last Treating Co mments Source Name Details Category Date Date Treatment Clinician Date Hypertrigl Hypertrigl Disease Active 2020-1 U nivers yceridemia yceridemia 0-25 it y of 00:00: [address] Essential Essential Disease Active 2020-0 Uni vers hypertensi hypertensi 5-18 it y of on on 00:00: [place] [address] Medical [place] History of History of Disease Active 2020-0 U nivers diverticul diverticul 5-18 it y of itis itis 00:00: [place] [facility] Diabetes Diabetes Disease Active Unive rs mellitus mellitus -18 ity of type 2 in type 2 in 00:00: Kimberlee s obese obese [facility] Fatty Fatty Disease Active 2019- Univers liver liver -18 ity of 00:: [place] [facility] Hepatosple Hepatosple Disease Active 2019- U nivers nomegaly nomegaly -18 ity of 00:: [place] 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 Social History Social Habit Start Date Stop Date Quantity Comments Source Exposure to Not sure [facility] SARS-CoV-2 [facility] [place] [facility] (event) [place] Tobacco use and 2021-02-18 2021-02-18 Never used Universit y of exposure 00:00:00 00:00:00 [facility] Alcohol intake 2021-02-18 2021-02-18 Current drinker Unive rsity of 00:00:00 00:00:00 of alcohol [facility] [place] [facility] (finding) [facility] Alcohol Comment 2020-08-22 2020-08-22 rare Universit y of 00:00:00 00:00:00 [facility] Tobacco Comment 2020-03-19 2020-03-19 Vapes everyday Unive rsity of 00:00:00 00:00:00 [facility] Sex Ass[birth year] At [birth year] Universit y of 00:00:00 00:00:00 [facility] Smoking Status Start Date Stop Date Source Current every day smoker 2021-02-18 00:00:00 Uni versity of [facility] Medications Ordered Filled Start Stop Current Ordering Indication Dosage Frequency Signature Comments Components Source Medication Medication Date Date Medication? Clinician (SIG) Name Name METFORMIN Yes Diabetes 750mg TAKE 1 U nivers ER 750 mg 4-13 mellitus TABLET BY i ty of 24 hr 00:00: type 2 [place]TH 2 [place] tablet 00 obese (TWO) Medical TIMES Branch DAILY WITH MEALS. STOP THE 500MG DOSE. methylPREDN Yes Acute low 84mg Take 21 Univers ISolone 4-13 back pain tablets by i ty of (MEDROL, 00:00: with mouth [place] BREE,) 4 mg 00 sciatica, SEE-INSTRU Medical tablets sciatica CTIONS. Branc h laterality follow unspecified package , directions unspecified back pain laterality methylPREDN Yes History of 84mg Take 21 Univers ISolone 3-24 diverticuli tablets by ity of (MEDROL, 00:00: tis mouth [place] BREE,) 4 mg 00 SEE-INSTRU Med ical tablets CTIONS. Branch follow package directions cyclobenzap Yes Lumbar pain 10mg Take 1 Univers rine 10 mg 3-24 with tablet by ity of tablet 00:00: radiation mouth 3 [place] as 00 down leg (three) Medical times Branch daily. LISINOPRIL Yes Essential TAKE 1 Univers 5 mg tablet 1-06 hypertensio TABLET BY ity of 00:00: n MOUTH [place] 00 EVERY DAY Medical Branch ciprofloxac 2019-11 Yes Diverticuli 500mg Take 1 Univers in HCl 500 1-19 tis tablet by ity of mg tablet 00:00: mouth 2 [place] (two) Medical times Branch daily. metroNIDAZO 2019-11 Yes Diverticuli 500mg Take 1 Univers LE 500 mg 1-19 tis tablet by ity o f tablet 00:00: mouth 2 [place] (two) Medical times Branch daily. dicyclomine 2019-11 Yes Diverticuli 20mg Take 1 Univers 20 mg 1-19 tis tablet by ity of tablet 00:00: mouth [place] 00 every 6 Medical (six) Branch hours as needed for Abdominal pain. traMADoL 2019-11 Yes acute pain 50mg Take 1 U nivers (ULTRAM) 50 1-19 tablet by ity of mg tablet 00:00: mouth [place] 00 every 6 Medical (six) Branch hours as needed for Pain (scale 7-10). Indication s: acute pain rosuvastati 2019- Yes Hypertrigly 5mg Take 1 Univers n 5 mg 0-25 ceridemia tablet by ity of tablet 00:00: mouth at [place] 00 bedtime. Medical Branch clobetasoL 2019- Yes Scaly patch Apply to Univers 0.05 % 0-15 rash area(s) 2 ity of ointment 00:00: (two) [place] 00 times Medical daily. Branch mupirocin 2 2019-0 Yes Impetigo Apply to Univers % ointment 9-01 area(s) 3 ity of 00:00: (three) [place] 00 times Medical daily. Branch hydrOXYzine 2019-0 Yes Impetigo 25mg Take 1 Univers 25 mg 9-01 tablet by ity of tablet 00:00: mouth [place] 00 every 6 Medical (six) Branch hours as needed for Itching. MELOXICAM 2020-0 Yes Heel pain, 15mg TAKE 1 Univers 15 mg 8-10 bilateral TABLET BY ity of tablet 00:00: MOUTH ONCE [place] 00 DAILY Medical NEEDED FOR Branch PAIN OR INFLAMMATI ON. TAKE WITH FOOD. Blood-Gluco 2020-0 Yes Diabetes Check U nivers se Meter 5-19 mellitus glucose ity of Kit 00:00: type 2 in once daily [place] 00 obese before Medical breakfast; Branch Diagnosis code E11.9 blood sugar 2020-0 Yes Diabetes Check U nivers diagnostic 5-19 mellitus glucose it y of (BLOOD 00:00: type 2 in once daily [place] GLUCOSE 00 obese before Medical TEST) strip breakfast; Br anch Diagnosis code E11.9 Lancets 2020-0 Yes Diabetes Check Unive rs Misc 5-19 mellitus glucose ity of 00:00: type 2 in once daily [place] 00 obese before Medical breakfast; Branch Diagnosis code E11.9 econazole 2020-0 Yes Tinea pedis Apply to Univers nitrate 1 % 5-19 of both feet BID i ty of cream 00:00: feet until the [place] 00 fungal Medical infection Branch has resolved traMADol 2020-0 Yes Acute 50mg Take 1 Univer s (ULTRAM) 50 5-12 diverticuli tablet by ity of mg tablet 00:00: tis mouth [place] 00 every 6 Medical (six) Branch hours as needed for Pain (scale 7-10). BusPIRone BusPIRone 2018- Yes Biran [address] [facility] HCl HCl 7-23 Ja [facility] - 00:00: [facility] 00 l Outpati ent Clinics HydrOXYzine HydrOXYzine 2018- Yes Brian [address] [facility] HCl HCl 7-23 Ja as needed [facility] - 00:[facility]: [facility] Trazodone Trazodone 2018- Yes Brian [address] [facility] HCl HCl 7-23 Ja at bedtime [facility] - 00:00: as needed [facility] 00 l [facility] Procedures This patient has no known procedures. Plan of Care Planned Activity Planned Date Details Comments Source Future Scheduled 2022-01-29 Depression screening Uni [facility] Test 00:00:00 (procedure) [code = Medical Branch [id number]] Future Scheduled 2021-09-[address] [facility] Test 00:00:00 measurement Medical Branch (procedure) [code = [id number]] Future Scheduled 2021-08-23 Calculated low [facility] Test 00:00:00 density lipoprotein Medical Branch cholesterol level (procedure) [code = [id number]] Future Scheduled 2021-08-[address] [facility] Test 00:00:00 measurement, urine, Medical Branch quantitative (procedure) [code = [id number]] Future Scheduled 2021-08-[address] [facility] Test 00:00:00 examination Medical Branch (regime/therapy) [code = [id number]] Future Scheduled 2021-07-09 INFLUENZA VACCINE [facility] Test 00:00:00 (Season Ended) [code Medical Branch = INFLUENZA VACCINE (Season Ended)] Future Scheduled 2021-02-21 Hemoglobin A1c [facility] Test 00:00:00 measurement Medical Branch (procedure) [code = [id number]] Future Scheduled 2001 DTaP,Tdap,and Td Univers [facility] Test 00:00:00 Vaccines (1 - Tdap) Medical Branch [code = DTaP,Tdap,and Td Vaccines (1 - Tdap)] Future Scheduled 1992 Examination of retina Un [facility] Test 00:00:00 (procedure) [code = Medical Branch [id number]] Future Scheduled 1988 PNEUMOCOCCAL 0-64 [facility] Test 00:00:00 YEARS COMBINED SERIES Medica l Branch (1 of 1 - PPSV23) [code = PNEUMOCOCCAL 0-64 YEARS COMBINED SERIES (1 of 1 - PPSV23)] Encounters Start End Encounter Admission Attending Care Care Encounter Source Date/Time Date/Time Type Type Clinicians Facility Department ID 2021-05-15 2021-05-[address] [facility] [id number] 00:00:00 00:00:00 [facility] [id number] [place] [id number] Professio [id number] nal 0[address] One 2021-04-22 2021-04-[address] [facility] [id number] 00:00:00 00:00:00 [facility] [id number] [place] [id number] Professio [id number] nal 044 Office Building One 2021-03-27 2021-03-27 Orders Doctor AUGUSTINA [id number] 00:00:00 00:00:00 Only Unassigned, TERRA [id number] [facility] [id number] 2021-03-08 2021-03-08 [facility] [id number] 13:27:21 23:59:00 Encounter Charles Ugarte SPECIALTY [id number] CARE [id number] CENTER AT [phone] STEFAN 804 [facility] 2021-03-04 2021-03-[address] [facility] [id number] 09:15:02 09:30:02 Visit [facility] [id number] Surgical [id number] Specialti [id number] es [address] [place] 2021-03-04 2021-03-04 [facility] [id number] 00:00:00 00:00:00 (Out) [facility] [id number] Surgical [id number] Specialti [id number] es [address] [place] 2021-02-18 2021-02-18 BRENDA [place] [id number] 00:00:00 00:00:00 (Out) [facility] [id number] Surgical [id number] Specialti [id number] es [address] [place] 2021-01-28 2021-01-28 Orders Doctor JACKMAN [id number] 00:00:00 00:00:00 Only Unassigned, TERRA [id number] [place] [facility] [id number] 2019-06-27 2019-06-27 Outpatient Trinity Galarza [id number] [facility] [address] 15:15:00 15:15:00 [facility] 2019-05-30 2019-05-30 Outpatient Trinity Galarza [id number] 15:30:00 15:30:00 [facility] ent Clinics Results This patient has no known results.
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
--- NOTE | 2021-05-28 21:29 | RAD REPORT ---
EXAM DESCRIPTION: RAD - Knee Right 3 View - 05/28/2021 9:21 pm CLINICAL HISTORY: PAIN COMPARISON: Knee Right 3 View dated 08/01/2017; Knee Right 3 View dated 06/22/2017 FINDINGS: No right knee fracture is identified. Mild mediolateral compartment narrowing as well as p atellofemoral compartment spurring. No significant knee effusion. IMPRESSION: No acute osseous abnormality involving the right knee.
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
[2021-05-28 21:52] VITALS: BP 128/81; TEMP 97.3; O2SAT 99
== END 2021-05-28 21:46 | disposition home or self-care (01) ==
LOC: ER 17:55
DX: S16.1XXA Strain of muscle, fascia and tendon at neck level, initial encounter (principal); S39.012A Strain of muscle, fascia and tendon of lower back, initial encounter; S63.8X1A Sprain of other part of right wrist and hand, initial encounter; V49.40XA Driver injured in collision with unspecified motor vehicles in traffic accident, initial encounter
CPT/HCPCS: 72040; 72100; 99284

== ENCOUNTER 2023-06-07 23:07 | Emergency (ER) | payer OTHER ==
--- OUTSIDE RECORDS SUMMARY | 2023-06-07 23:12 | XMS REPORT | Continuity of Care Document ---
:1980 Author Organization [facility] t Address [address] [place] [address] [place] [id number] Care Team Providers Name Role Phone SAMANTHA MICHELE Primary Care Physician Unavailable SAMANTHA MICHELE Attending Clinician Unavailable Jazzy Solis Attending Clinician Laury Horne Attending Clinician LAURY MAHONEY Attending Clinician Unavailable Unknown, Attending Attending Clinician Unavailable Doctor Unassigned, [place] Attending Clinician Unavailable JAZZY MICHAELS Attending Clinician Unavailable Therapy, [facility] Attending Clinician Unavailable Merrill Sebastian MD Attending Clinician MERRILL SEBASTIAN Attending Clinician Unavailable EbrahiMonie Gonzalez Attending Clinician MONIE TEJADA Attending Clinician Unavailable Only, Ang Db Test Attending Clinician Unavailable Elise Benítez LVN Attending Clinician Unavailable Lab, Ang - Db Attending Clinician Unavailable Froylan Jackson MD Attending Clinician FROYLAN JACKSON Attending Clinician Unavailable Samantha Michele MD Attending Clinician GIOVANNA HU Attending Clinician Unavailable Giovanna Hu MD Attending Clinician 2, [facility] Attending Clinician Unavailable DANYELL ALDRICH Attending Clinician Unavailable Kaye Lee MD Attending Clinician KAYE LEE Attending Clinician Unavailable Valdemar BUCKLEY Danyell S Attending Clinician Juanito Cunha DO Attending Clinician Mino FOSTER, Osiel S Attending Clinician Belem Conn DO Attending Clinician Provider, [facility] Attending Clinician Unavailable Brando Fish Attending Clinician ACE LORENZO Attending Clinician Unavailable Ace Lorenzo MD Attending Clinician P[facility], [facility] Attending Clinician Unavailable Domingo FOSTER, Desi Ibarra Attending Clinician [phone] Navi FOSTER, Aleksandra Haley Attending Clinician [phone] BRANDO LAKHANI Attending Clinician Unavailable KAYE LEE Admitting Clinician Unavailable ACE LORENZO Admitting Clinician Unavailable Ace Lorenzo MD Admitting Clinician Payers Payer Name Policy Type Policy Number Effective Date Expiration Date [place] [employer] [facility] [employer] [facility] [id number] 2017 00:00:00 [place] [id number] 2022 EM[employer]OYEE-[employer] 00:00:00 Problems Condition Condition Condition Status Onset Resolution Last Treating Co mments Source Name Details Category Date Date Treatment Clinician Date Vitamin D Vitamin D Disease Active Uni vers deficiency deficiency 5-16 it y of 00:00: [facility] Elevated Elevated Disease Active Unive rs LFTs LFTs 5-16 ity of 00:00: [place] [facility] Elevated Elevated Disease Active Unive rs bilirubin bilirubin 5-16 ity of 00:00: [place] [facility] TIA TIA Disease Active Univers (transient (transient 9-07 it y of ischemic ischemic 00:00: [place] attack) attack) [facility] Hypertrigl Hypertrigl Disease Active 2019-11 U nivers yceridemia yceridemia 0-25 it y of 00:00: [facility] Essential Essential Disease Active Uni vers hypertensi hypertensi 5-18 it y of on on 00:00: [place] [facility] History of History of Disease Active 2020-0 U nivers diverticul diverticul 5-18 it y of itis itis 00:: [place] [facility] Diabetes Diabetes Disease Active 2020-0 Unive rs mellitus mellitus 5-18 ity of type 2 in type 2 in 00:00: [facility] obese obese 00 [facility] Branch Fatty Fatty Disease Active 2020-0 Univers liver liver 5-18 ity of 00:: [place] [facility] Hepatosple Hepatosple Disease Active 2020-0 U nivers nomegaly nomegaly 5-18 ity of 00:: [place] [facility] Morbid Morbid Disease Active 2020-0 Univers obesity obesity 5-18 ity of 00:: [place] [facility] Body mass Body mass Problem Active Com mon index index Spirit (BMI) of (BMI) of - [facility] 50-59.9 in 50-59.9 in [facility] PTSD PTSD Diagnosis Active 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 Obstructiv Obstructiv Diagnosis Active Common e sleep e sleep Spirit apnea apnea - [facility] syndrome syndrome [facility] Allergies, Adverse Reactions, Alerts Allergy Allergy Status Severity Reaction(s) Onset Inactive Treating Comm ents Source Name Type Date Date Clinician NO KNOWN Drug Active Univers ALLERGIE Class ity of S [facility] Social History Social Habit Start Date Stop Date Quantity Comments Source History of Smokes tobacco University of tobacco use daily [facility] Exposure to 2022-09-10 2022-09-20 Not sure University of SARS-CoV-2 00:00:00 09:47:00 [facility] (event) Branch Alcohol intake 2022-09-20 2022-09-20 Current drinker Unive rsity of 00:00:00 00:00:00 of alcohol [facility] (finding) [place] Tobacco use and 2022-05-20 2022-05-20 Smokeless tobacco Un iversity of exposure 00:00:00 00:00:00 non-user [facility] Tobacco Comment 2022-05-20 2022-05-20 Vapes everyday Unive rsity of 00:00:00 00:00:00 [facility] History SDOH 2020-08-22 2020-08-22 99 University o f Alcohol Frequency 00:00:00 00:00:00 [place] [facility] History SDOH 2020-08-22 2020-08-22 99 [place] o f Alcohol Std 00:00:00 00:00:00 [place] [facility] History SDOH 2020-08-22 2020-08-22 99 [place] o f Alcohol Binge 00:00:00 00:00:00 [place] [facility] Alcohol Comment 2020-08-22 2020-08-22 rare Universit y of 00:00:00 00:00:00 [facility] Sex [birth year] At [birth year] Universit y of 00:00:00 00:00:00 [facility] Smoking Status Start Date Stop Date Source Smokes tobacco daily 2022-05-20 00:00:00 Univers ity of [facility] Medications Ordered Filled Start Stop Current Ordering Indication Dosage Frequency Signature Comments Components Source Medication Medication Date Date Medication? Clinician (SIG) Name Name ROSUVASTATI Yes [id number] TAKE 1 Univers N 5 mg 3-24 TABLET BY ity of tablet 00:00: [facility] EVERYDAY [facility] ROSUVASTATI 2022-0 Yes [id number] TAKE 1 Univers N 5 mg 3-24 TABLET BY ity of tablet 00:00: [facility] EVERYDAY Medical AT [facility] Branch ROSUVASTATI 2022-0 Yes [id number] TAKE 1 Univers N 5 mg 3-24 TABLET BY ity of tablet 00:00: [facility] EVERYDAY Medical AT [facility] ROSUVASTATI 2022-0 Yes [id number] TAKE 1 Univers N 5 mg 3-24 TABLET BY ity of tablet 00:00: [facility] EVERYDAY Medical AT [facility] Branch LISINOPRIL 2022-0 Yes [id number] TAKE 1 U nivers 5 mg tablet 2-21 TABLET BY ity of 00:00: [facility] EVERY DAY Medical Branch LISINOPRIL 2022-0 Yes [id number] TAKE 1 U nivers 5 mg tablet 2-21 TABLET BY ity of 00:00: [facility] EVERY DAY Medical Branch ROSUVASTATI 2022-0 Yes [id number] TAKE 1 Univers N 5 mg 2-21 TABLET BY ity of tablet 00:00: [facility] EVERYDAY Medical AT [facility] Branch METFORMIN 2022-0 Yes [id number] TAKE 1 Un myriam ER 750 mg 2-21 TABLET BY ity o f 24 hr 00:00: MOUTH [place] tablet 00 TWICE A Medical DAY WITH Branch MEALS LISINOPRIL 2023-0 Yes [id number] TAKE 1 U nivers 5 mg tablet 2-21 TABLET BY ity of 00:00: MOUTH [place] 00 EVERY DAY Medical Branch METFORMIN 2023-0 Yes [id number] TAKE 1 Un myriam ER 750 mg 2-21 TABLET BY ity o f 24 hr 00:00: MOUTH [place] tablet 00 TWICE A Medical DAY WITH Branch MEALS LISINOPRIL 2023-0 Yes [id number] TAKE 1 U nivers 5 mg tablet 2-21 TABLET BY ity of 00:00: MOUTH [place] 00 EVERY DAY Medical Branch METFORMIN 2023-0 Yes [id number] TAKE 1 Un myriam ER 750 mg 2-21 TABLET BY ity o f 24 hr 00:00: MOUTH [place] tablet 00 TWICE A Medical DAY WITH Branch MEALS LISINOPRIL 2023-0 Yes [id number] TAKE 1 U nivers 5 mg tablet 2-21 TABLET BY ity of 00:00: MOUTH [place] 00 EVERY DAY Medical Branch METFORMIN 2023-0 Yes [id number] TAKE 1 Un myriam ER 750 mg 2-21 TABLET BY ity o f 24 hr 00:00: MOUTH [place] tablet 00 TWICE A Medical DAY WITH Branch MEALS LISINOPRIL 2023-0 Yes [id number] TAKE 1 U nivers 5 mg tablet 2-21 TABLET BY ity of 00:00: MOUTH [place] 00 EVERY DAY Medical Branch METFORMIN 2023-0 Yes [id number] TAKE 1 Un myriam ER 750 mg 2-21 TABLET BY ity o f 24 hr 00:00: MOUTH [place] tablet 00 TWICE A Medical DAY WITH Branch MEALS ROSUVASTATI 2023-0 3- No [id number] TAKE 1 Univers N 5 mg 2-21 03-24 TABLET BY ity of tablet 00:00: 00:00 MOUTH [place] 00 :00 EVERYDAY Medical AT BEDTIME Branch ROSUVASTATI 2023-0 3- No [id number] TAKE 1 Univers N 5 mg 2-21 03-24 TABLET BY ity of tablet 00:00: 00:00 MOUTH [place] 00 :00 EVERYDAY Medical AT BEDTIME Branch ROSUVASTATI 2023-0 2022- No [id number] TAKE 1 Univers N 5 mg 2-21 03-24 TABLET BY ity of tablet 00:00: 00:00 MOUTH [place] 00 :00 EVERYDAY Medical AT BEDTIME Branch ROSUVASTATI 0 2022- No [id number] TAKE 1 Univers N 5 mg 2-21 03-24 TABLET BY ity of tablet 00:00: 00:00 MOUTH [place] 00 :00 EVERYDAY Medical AT BEDTIME Branch clotrimazol 2021-11- No [id number] 1{dose} Apply 1 Univers e 1 % 11-20- Dose to ity of ointment 00:00: 05:59 area(s) 2 [place] as 00 :00 (two) Medical times Branch daily for 7 days. clotrimazol 2021-11- No [id number] 1{dose} Apply 1 Univers e 1 % 11-20- Dose to ity of ointment 00:00: 05:59 area(s) 2 [place] as 00 :00 (two) Medical times Branch daily for 7 days. clotrimazol 2021-11- No [id number] 1{dose} Apply 1 Univers e 1 % 11-20 Dose to ity of ointment 00:00: 05:59 area(s) 2 [place] as 00 :00 (two) Medical times Branch daily for 7 days. Blood-Gluco 2021-0 Yes [id number] Use as Univers se 6-12 directed ity of Transmitter 00:00: for [place] (DEXCOM G6 00 glucose Medica l TRANSMITTER monitoring Br anch ) [facility] Blood-Gluco 2021-0 Yes [id number] Use as Univers se 6-12 directed ity of Meter,Jayy 00:00: for [facility] 00 glucose Medical (DEXCOM G6 monitoring [facility] [employer]) [facility] Blood-Gluco 2021-0 Yes [id number] Use as Univers se Sensor 6-12 directed ity of (DEXCOM G6 00:00: for [place] SENSOR) 00 glucose Medical Abi monitoring Branch for DM type 2 Blood-Gluco 2021-0 Yes [id number] Use as Univers se 6-12 directed ity of Transmitter 00:00: for [place] (DEXCOM G6 00 glucose Medica l TRANSMITTER monitoring Br anch ) [facility] Blood-Gluco 2021-0 Yes [id number] Use as Univers se 6-12 directed ity of Meter,Jayy 00:00: for [place] nuous 00 glucose Medical (DEXCOM G6 monitoring 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) Mis Blood-Gluco 2-0 Yes [id number] Use as Univers se Sensor 6-12 directed ity of (DEXCOM G6 00:00: for [place] SENSOR) 00 glucose Medical Abi monitoring Branch for DM type 2 Blood-Gluco 2-0 Yes [id number] Use as Univers se 6-12 directed ity of Transmitter 00:00: for [place] (DEXCOM G6 00 glucose Medica l TRANSMITTER monitoring Br anch ) Abi Blood-Gluco 2021-0 Yes [id number] Use as Univers se 6-12 directed ity of Meter,Jayy 00:00: for [place] nuous 00 glucose Medical (DEXCOM G6 monitoring 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) [facility] Blood-Gluco 2021-0 Yes [id number] Use as Univers se Sensor 6-12 directed ity of (DEXCOM G6 00:00: for [place] SENSOR) 00 glucose Medical Abi monitoring Branch for DM type 2 Blood-Gluco 2021-0 Yes [id number] Use as Univers se 6-12 directed ity of Transmitter 00:00: for [place] (DEXCOM G6 00 glucose Medica l TRANSMITTER monitoring Br anch ) Abi Blood-Gluco 2021-0 Yes [id number] Use as Univers se 6-12 directed ity of Meter,Jayy 00:00: for [place] nuous 00 glucose Medical (DEXCOM G6 monitoring 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) [facility] Blood-Gluco 2021-0 Yes [id number] Use as Univers se Sensor 6-12 directed ity of (DEXCOM G6 00:00: for [place] SENSOR) 00 glucose Medical Abi monitoring Branch for DM type 2 Blood-Gluco 2021-0 Yes [id number] Use as Univers se 6-12 directed ity of Transmitter 00:00: for [place] (DEXCOM G6 00 glucose Medica l TRANSMITTER monitoring Br anch ) Abi Blood-Gluco 2021-0 Yes [id number] Use as Univers se 6-12 directed ity of Meter,Jayy 00:00: for [place] nuous 00 glucose Medical (DEXCOM G6 monitoring 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) [facility] Blood-Gluco 2022-0 Yes [id number] Use as Univers se Sensor 6-12 directed ity of (DEXCOM G6 00:00: for [place] SENSOR) 00 glucose Medical Abi monitoring Branch for DM type 2 Blood-Gluco 2022-0 Yes [id number] Use as Univers se 6-12 directed ity of Transmitter 00:00: for [place] (DEXCOM G6 00 glucose Medica l TRANSMITTER monitoring Br anch ) Abi Blood-Gluco 202-0 Yes [id number] Use as Univers se 6-12 directed ity of Meter,Jayy 00:00: for [place] nuous 00 glucose Medical (DEXCOM G6 monitoring 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) [facility] Blood-Gluco 2021-0 Yes [id number] Use as Univers se Sensor 6-12 directed ity of (DEXCOM G6 00:00: for [place] SENSOR) 00 glucose Medical Abi monitoring Branch for DM type 2 Blood-Gluco 2021-0 Yes [id number] Use as Univers se 6-12 directed ity of Transmitter 00:00: for [place] (DEXCOM G6 00 glucose Medica l TRANSMITTER monitoring Br anch ) Abi Blood-Gluco 2021-0 Yes [id number] Use as Univers se 6-12 directed ity of Meter,Jayy 00:00: for [place] nuous 00 glucose Medical (DEXCOM G6 monitoring 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) [facility] Blood-Gluco 2-0 Yes [id number] Use as Univers se Sensor 6-12 directed ity of (DEXCOM G6 00:00: for [place] SENSOR) 00 glucose Medical Abi monitoring Branch for DM type 2 Blood-Gluco 2-0 Yes [id number] Use as Univers se 6-12 directed ity of Transmitter 00:00: for [place] (DEXCOM G6 00 glucose Medica l TRANSMITTER monitoring Br anch ) Abi Blood-Gluco 2021-0 Yes [id number] Use as Univers se 6-12 directed ity of Meter,Jayy 00:00: for [place] nuous 00 glucose Medical (DEXCOM G6 monitoring 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) [facility] Blood-Gluco 2022-0 Yes [id number] Use as Univers se Sensor 6-12 directed ity of (DEXCOM G6 00:00: for [place] SENSOR) 00 glucose Medical Abi monitoring Branch for DM type 2 Blood-Gluco 2022-0 Yes [id number] Use as Univers se 6-12 directed ity of Transmitter 00:00: for [place] (DEXCOM G6 00 glucose Medica l TRANSMITTER monitoring Br anch ) Abi Blood-Gluco 2022-0 Yes [id number] Use as Univers se 6-12 directed ity of Meter,Jayy 00:00: for [place] nuous 00 glucose Medical (DEXCOM G6 monitoring 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) [facility] Blood-Gluco 2022-0 Yes [id number] Use as Univers se Sensor 6-12 directed ity of (DEXCOM G6 00:00: for [place] SENSOR) 00 glucose Medical Abi monitoring Branch for DM type 2 Blood-Gluco 2022-0 Yes [id number] Use as Univers se 6-12 directed ity of Transmitter 00:00: for [place] (DEXCOM G6 00 glucose Medica l TRANSMITTER monitoring Br anch ) Abi Blood-Gluco 202-0 Yes [id number] Use as Univers se 6-12 directed ity of Meter,Jayy 00:00: for [place] [facility] glucose Medical (DEXCOM G6 monitoring 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) [facility] Blood-Gluco 2021-0 Yes [id number] Use as Univers se Sensor 6-12 directed ity of (DEXCOM G6 00:00: for [place] SENSOR) 00 glucose Medical Abi monitoring Branch for DM type 2 Blood-Gluco 202-0 Yes [id number] Use as Univers se 6-12 directed ity of Transmitter 00:00: for [place] (DEXCOM G6 00 glucose Medica l TRANSMITTER monitoring Br anch ) Abi Blood-Gluco 2021-0 Yes [id number] Use as Univers se 6-12 directed ity of Meter,Jayy 00:00: for [facility] 00 glucose Medical (DEXCOM G6 monitoring 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) [facility] Blood-Gluco 2022-0 Yes [id number] Use as Univers se Sensor 6-12 directed ity of (DEXCOM G6 00:00: for [place] SENSOR) 00 glucose Medical Abi monitoring Branch for DM type 2 Blood-Gluco 2022-0 Yes [id number] Use as Univers se 6-12 directed ity of Transmitter 00:00: for [place] (DEXCOM G6 00 glucose Medica l TRANSMITTER monitoring Br anch ) Abi Blood-Gluco 2-0 Yes [id number] Use as Univers se 6-12 directed ity of Meter,Jayy 00:00: for [place] nuous 00 glucose Medical (DEXCOM G6 monitoring 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) [facility] Blood-Gluco 2022-0 Yes [id number] Use as Univers se Sensor 6-12 directed ity of (DEXCOM G6 00:00: for [place] SENSOR) 00 glucose Medical Abi monitoring Branch for DM type 2 Blood-Gluco 2021-0 Yes [id number] Use as Univers se 6-12 directed ity of Transmitter 00:00: for [place] (DEXCOM G6 00 glucose Medica l TRANSMITTER monitoring Br anch ) Abi Blood-Gluco 2021-0 Yes [id number] Use as Univers se 6-12 directed ity of Meter,Jayy 00:00: for [place] nuous 00 glucose Medical (DEXCOM G6 monitoring 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 Medical D2) 1,250 Branch mcg (50,000 unit) capsule ergocalcife 2-0 Yes [id number] Take 1 Univers rol, 5-16 capsule by ity of vitamin d2, 00:00: mouth [place] (VITAMIN 00 weekly. Medical D2) 1,250 Branch mcg (50,000 unit) capsule ergocalcife 2022-0 Yes [id number] Take 1 Univers rol, 5-16 capsule by ity of vitamin d2, 00:00: mouth [place] (VITAMIN 00 weekly. Medical D2) 1,250 Branch mcg (50,000 unit) capsule ergocalcife 2022-0 Yes [id number] Take 1 Univers rol, 5-16 capsule by ity of vitamin d2, 00:00: mouth [place] (VITAMIN 00 weekly. Medical D2) 1,250 Branch mcg (50,000 unit) capsule ergocalcife 2022-0 Yes [id number] Take 1 Univers rol, 5-16 capsule by ity of vitamin d2, 00:00: mouth [place] (VITAMIN 00 weekly. Medical D2) 1,250 Branch mcg (50,000 unit) capsule ergocalcife 2022-0 Yes [id number] Take 1 Univers rol, 5-16 capsule by ity of vitamin d2, 00:00: mouth [place] (VITAMIN 00 weekly. Medical D2) 1,250 Branch mcg (50,000 unit) capsule ergocalcife 2022-0 Yes [id number] Take 1 Univers rol, 5-16 capsule by ity of vitamin d2, 00:00: mouth [place] (VITAMIN 00 weekly. Medical D2) 1,250 Branch mcg (50,000 unit) capsule ergocalcife 2-0 Yes [id number] Take 1 Univers rol, 5-16 capsule by ity of vitamin d2, 00:00: mouth [place] (VITAMIN 00 weekly. Medical D2) 1,250 Branch mcg (50,000 unit) capsule ergocalcife 2-0 Yes [id number] Take 1 Univers rol, 5-16 capsule by ity of vitamin d2, 00:00: mouth [place] (VITAMIN 00 weekly. Medical D2) 1,250 Branch mcg (50,000 unit) capsule ergocalcife 2021-0 Yes [id number] Take 1 Univers rol, 5-16 capsule by ity of vitamin d2, 00:00: mouth [place] (VITAMIN 00 weekly. Medical D2) 1,250 Branch mcg (50,000 unit) capsule ergocalcife 2021-0 Yes [id number] Take 1 Univers rol, 5-16 capsule by ity of vitamin d2, 00:00: mouth [place] (VITAMIN 00 weekly. Medical D2) 1,250 Branch mcg (50,000 unit) capsule ergocalcife 2021-0 Yes [id number] Take 1 Univers rol, 5-16 capsule by ity of vitamin d2, 00:00: mouth [place] (VITAMIN 00 weekly. Medical D2) 1,250 Branch mcg (50,000 unit) capsule ergocalcife 2021-0 Yes [id number] Take 1 Univers rol, 5-16 capsule by ity of vitamin d2, 00:00: mouth [place] (VITAMIN 00 weekly. Medical D2) 1,250 Branch mcg (50,000 unit) capsule SITagliptin 2021-0 Yes [id number] 100mg Take 1 Univers (JANUVIA) 5-13 tablet by ity o f 100 mg 00:00: mouth [place] tablet 00 daily. Medical Branch lisinopriL 2021-0 Yes [id number] 5mg Take 1 U nivers 5 mg tablet 5-13 tablet by ity of 00:00: mouth [place] 00 daily. Medical Branch metformin 2021-0 Yes [id number] 750mg Take 1 U nivers ER 750 mg 5-13 tablet by ity o f 24 hr 00:00: mouth 2 [place] tablet 00 (two) Medical times Branch daily with meals. rosuvastati 2021-0 Yes [id number] 5mg Take 1 Univers n 5 mg 5-13 tablet by ity of tablet 00:00: mouth at [place] 00 bedtime. Medical Branch SITagliptin 2021-0 Yes [id number] 100mg Take 1 Univers (JANUVIA) 5-13 tablet by ity o f 100 mg 00:00: mouth [place] tablet 00 daily. Medical Branch lisinopriL 2021-0 Yes [id number] 5mg Take 1 U nivers 5 mg tablet 5-13 tablet by ity of 00:00: mouth [place] 00 daily. Medical Branch metformin 2021-0 Yes [id number] 750mg Take 1 U nivers ER 750 mg 5-13 tablet by ity o f 24 hr 00:00: mouth 2 [place] tablet 00 (two) Medical times Branch daily with meals. rosuvastati 0 Yes [id number] 5mg Take 1 Univers n 5 mg 5-13 tablet by ity of tablet 00:00: mouth at [place] 00 bedtime. Medical Branch SITagliptin 0 Yes [id number] 100mg Take 1 Univers (JANUVIA) 5-13 tablet by ity o f 100 mg 00:00: mouth [place] tablet 00 daily. Medical Branch lisinopriL 2021-0 Yes [id number] 5mg Take 1 U nivers 5 mg tablet 5-13 tablet by ity of 00:00: mouth [place] 00 daily. Medical Branch metformin 2021-0 Yes [id number] 750mg Take 1 U nivers ER 750 mg 5-13 tablet by ity o f 24 hr 00:00: mouth 2 [place] tablet 00 (two) Medical times Branch daily with meals. rosuvastati 2021-0 Yes [id number] 5mg Take 1 Univers n 5 mg 5-13 tablet by ity of tablet 00:00: mouth at [place] 00 bedtime. Medical Branch SITagliptin 2021-0 Yes [id number] 100mg Take 1 Univers (JANUVIA) 5-13 tablet by ity o f 100 mg 00:00: mouth [place] tablet 00 daily. Medical Branch lisinopriL 2021-0 Yes [id number] 5mg Take 1 U nivers 5 mg tablet 5-13 tablet by ity of 00:00: mouth [place] 00 daily. Medical Branch metformin 2021-0 Yes [id number] 750mg Take 1 U nivers ER 750 mg 5-13 tablet by ity o f 24 hr 00:00: mouth 2 [place] tablet 00 (two) Medical times Branch daily with meals. rosuvastati 2021-0 Yes [id number] 5mg Take 1 Univers n 5 mg 5-13 tablet by ity of tablet 00:00: mouth at [place] 00 bedtime. Medical Branch SITagliptin 2021-0 Yes [id number] 100mg Take 1 Univers (JANUVIA) 5-13 tablet by ity o f 100 mg 00:00: mouth [place] tablet 00 daily. Medical Branch lisinopriL 2021-0 Yes [id number] 5mg Take 1 U nivers 5 mg tablet 5-13 tablet by ity of 00:00: mouth [place] 00 daily. Medical Branch metformin 2021-0 Yes [id number] 750mg Take 1 U nivers ER 750 mg 5-13 tablet by ity o f 24 hr 00:00: mouth 2 [place] tablet 00 (two) Medical times Branch daily with meals. rosuvastati 2021-0 Yes [id number] 5mg Take 1 Univers n 5 mg 5-13 tablet by ity of tablet 00:00: mouth at [place] 00 bedtime. Medical Branch SITagliptin 2021-0 Yes [id number] 100mg Take 1 Univers (JANUVIA) 5-13 tablet by ity o f 100 mg 00:00: mouth [place] tablet 00 daily. Medical Branch lisinopriL 2021-0 Yes [id number] 5mg Take 1 U nivers 5 mg tablet 5-13 tablet by ity of 00:00: mouth [place] 00 daily. Medical Branch metformin 2021-0 Yes [id number] 750mg Take 1 U nivers ER 750 mg 5-13 tablet by ity o f 24 hr 00:00: mouth 2 [place] tablet 00 (two) Medical times Branch daily with meals. rosuvastati 2021-0 Yes [id number] 5mg Take 1 Univers n 5 mg 5-13 tablet by ity of tablet 00:00: mouth at [place] 00 bedtime. Medical Branch SITagliptin 2021-0 Yes [id number] 100mg Take 1 Univers (JANUVIA) 5-13 tablet by ity o f 100 mg 00:00: mouth [place] tablet 00 daily. Medical Branch lisinopriL 2022-0 Yes [id number] 5mg Take 1 U nivers 5 mg tablet 5-13 tablet by ity of 00:00: mouth [place] 00 daily. Medical Branch metformin Yes [id number] 750mg Take 1 U nivers ER 750 mg 5-13 tablet by ity o f 24 hr 00:00: mouth 2 [place] tablet 00 (two) Medical times [place] daily with meals. rosuvastati Yes [id number] 5mg Take 1 Univers n 5 mg 5-13 tablet by ity of tablet 00:00: mouth at [place] 00 bedtime. Medical Branch SITagliptin Yes [id number] 100mg Take 1 Univers (JANUVIA) 5-13 tablet by ity o f 100 mg 00:00: mouth [place] tablet 00 daily. Medical Branch metformin Yes [id number] 750mg Take 1 U nivers ER 750 mg 5-13 tablet by ity o f 24 hr 00:00: mouth 2 [place] tablet 00 (two) Medical times [place] daily with meals. rosuvastati Yes [id number] 5mg Take 1 Univers n 5 mg 5-13 tablet by ity of tablet 00:00: mouth at [place] 00 bedtime. Medical Branch SITagliptin Yes [id number] 100mg Take 1 Univers (JANUVIA) 5-13 tablet by ity o f 100 mg 00:00: mouth [place] tablet 00 daily. Medical Branch SITagliptin Yes [id number] 100mg Take 1 Univers (JANUVIA) 5-13 tablet by ity o f 100 mg 00:00: mouth [place] tablet 00 daily. Medical Branch SITagliptin Yes [id number] 100mg Take 1 Univers (JANUVIA) 5-13 tablet by ity o f 100 mg 00:00: mouth [place] tablet 00 daily. Medical Branch SITagliptin Yes [id number] 100mg Take 1 Univers (JANUVIA) 5-13 tablet by ity o f 100 mg 00:00: mouth [place] tablet 00 daily. Medical Branch SITagliptin Yes [id number] 100mg Take 1 Univers (JANUVIA) 5-13 tablet by ity o f 100 mg 00:00: mouth [place] tablet 00 daily. Medical Branch lisinopriL 2022- No [id number] 5mg Take 1 Univers 5 mg tablet 03-20 tablet by it y of 00:00: 00:00 mouth [place] 00 :00 daily. Medical Branch metformin 2022- No [id number] 750mg Take 1 Univers ER 750 mg 03-20 tablet by ity of 24 hr 00:00: 00:00 mouth 2 [place] tablet 00 :00 (two) Medical times Branch daily with meals. rosuvastati 2022- No [id number] 5mg Take 1 Univers n 5 mg 03-20 tablet by ity of tablet 00:00: 00:00 mouth at [place] 00 :00 bedtime. Medical Branch lisdexamfet Yes [id number] 30mg Take 1 Univers amine 1-31 capsule by ity of (VYVANSE) 00:00: mouth [place]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 [place] [phone] [facility] 353 [facility] 2020-08-23 2020-08-23 Outpatient R RENETTA [facility] [id number] Univers 11:15:00 11:15:00 WONDIFUL ity o f [facility] 2020-08-22 2020-08-22 Office Renetta [facility] 1.2.840.114 [id number] Univers 11:26:11 12:34:38 Visit [facility] Health 350.1.13.10 ity of [employer] 4.2.7.2.686 Antonio as Professio [phone] [address] Office Building [facility] 2020-08-22 2020-08-22 Outpatient R RENETTA [facility] [id number] Univers 11:15:00 11:15:00 WONDIFUL ity o f [facility] 2020-07-25 2020-07-25 Emergency [facility] 1.2.830.337 [id number] Univers 01:05:00 04:53:00 Osiel Church [employer] 350.1.13.10 [place] [phone] [address] 2020-07-25 2020-07-25 Patient [facility] 1.2.840.114 [id number] Univers 00:00:00 00:00:00 Secure Msg [facility] 350.1.13.10 ity of [employer] 4.2.7.2.686 Antonio as Professio [phone] [address] Office Building [facility] 2020-07-23 2020-07-23 Emergency [facility] 1.2.840.114 [id number] Univers 16:26:00 19:00:00 Belem [place] 350.1.13.10 [place] [phone] [address] 2020-07-09 2020-07-09 Urgent Provider, [facility] 1.2.840.114 [id number] Univers 10:38:40 11:43:19 Care Brando [facility] 350.1.13.10 ity of [employer] 4.2.7.2.686 [place] as Professio [phone] [address] Office Building [facility] 2020-07-09 2020-07-09 Outpatient R [facility] [id number] Univers 11:00:00 11:00:00 ity of [facility] 2020-06-17 2020-06-17 [facility] 1.2.840.114 [id number] Univers 00:00:00 00:00:00 Wondiful A [employer] 350.1.13.10 [place] [phone] [address] 2020-05-28 2020-05-28 Telephone [facility] 1.2.840.114 [id number] Univers 00:00:00 00:00:00 [facility] 350.1.13.10 ity of [employer] 4.2.7.2.686 Antonio as Professio [phone] [address] 2020-05-22 2020-05-22 Telemedici [facility] 1.2.840.114 [id number] Univers 08:06:38 11:38:07 ne Visit Wondiful A [employer] 350.1.13.10 [place] [phone] [address] 2020-05-22 2020-05-22 [facility] [id number] Univers 11:00:00 11:00:00 WONDIFUL ity o f [facility] 2020-05-13 2020-05-13 [facility] 1.2.840.114 [id number] Univers 00:00:00 00:00:00 Wondiful A [employer] 350.1.13.10 [place] [phone] [address] 2020-05-13 2020-05-13 Telephone [facility] 1.2.840.114 [id number] Univers 00:00:00 00:00:00 [facility] A Health 350.1.13.10 ity of [employer] 4.2.7.2.686 [place] as Professio [phone] [address] 2020-04-03 2020-04-03 [facility] 1.2.840.114 [id number] Univers 00:00:00 00:00:00 Wondiful A [employer] 350.1.13.10 [place] [phone] Ia dic[address] 2020-03-26 2020-03-26 Telemedici [facility] 1.2.840.114 [id number] Univers 10:20:30 13:57:54 ne Visit Wondiful A [employer] 350.1.13.10 [place].2.[place] [phone] [address] 2020-03-26 2020-03-26 Outpatient R RENETTA [facility] [id number] Univers 13:15:00 13:15:00 WONDIFUL ity o f [facility] 2020-03-25 2020-03-25 Telemedic [facility] 1.2.840.114 [id number] Univers 07:59:08 11:47:11 ne Visit Wondiful A [employer] 350.1.13.10 [place] [phone] [address] 2020-03-25 2020-03-25 Outpatient R RENETTA [facility] [id number] Univers 10:30:00 10:30:00 WONDIFUL ity o f [facility] 2020-03-19 2020-03-20 Outpatient X [facility] [id number] Univers 05:36:11 11:05:00 ACE ity of [facility] 2020-03-19 2020-03-20 Emergency Osiel Herzog [facility] 1.2.840 .114 [id number] Univers 05:36:11 11:05:00 Ace Lorenzo 350.1.13.10 [place] [phone] [address] 2020-03-19 2020-03-19 Outpatient R RENETTA [facility] [id number] Univers 15:45:00 15:45:00 WONDIFUL ity o f [facility] 2020-03-18 2020-03-18 Telephone Renetta [facility] 1.2.840.114 [id number] Univers 00:00:00 00:00:00 Froylan [facility] 350.1.13.10 ity of [employer] 4.2.7.2.686 Antonio as Professio [phone] Ia dical nal [facility] Branch Office Building [facility] 2020-03-12 2020-03-12 Urgent Pob1, Acute Care Clinic [facility] 1. 2.840.114 [id number] Univers 11:12:37 11:32:[address] [facility] 350.1 .13.10 ity of [employer] 4.2.7.2.686 Antonio as Professio [phone] Ia dical nal [address] [place] [address] Office [facility] 2020-03-12 2020-03-12 Outpatient R [facility] [id number] Univers 11:20:00 11:20:00 ity of [facility] 2020-03-12 2020-03-12 Telephone [facility] 1.2.443.279 [id number] Univers 00:00:00 00:00:00 [facility] 350.1.13.10 i ty of Sudha [employer] 4.2.7.2.686 Antonio as Professio [phone] Ia dical nal [address] [place] [address] Office [facility] 2020-03-12 2020-03-12 Letter [facility] 1.2.840.114 [id number] Univers 00:00:00 00:00:00 (Out) Brando Health 350.1.13.10 it y of [employer] 4.2.7.2.686 Antonio as Professio [phone] Ia dical nal [address] [place] [address] Office [facility] 2020-03-11 2020-03-11 Urgent Pob1, Acute Care Clinic [facility] 1. 2.840.114 [id number] Univers 10:49:42 11:16:45 Brando Angulo [facility] 350.1.13.10 ity of [employer] 4.2.7.2.686 Antonio as Professio [phone] Ia dical nal [address] [place] [address] Office Building One 2020-03-11 2020-03-11 Outpatient [facility] [id number] Univers 11:00:00 11:00:00 BRANDO itrishabh of [facility] 2020-03-11 2020-03-11 Telephone Pob1, Acute [facility] 1.2.840.114 [id number] Univers 00:00:00 00:00:00 [facility] 350.1.13.10 ity [facility] 4.2.7.2.686 Antonio as Professio [phone] [place] [address] Branch Office [facility] 2019-06-27 2019-06-27 Outpatient Trinity Galarza [id number] Common 15:15:00 15:15:00 [facility] it [facility] 2019-05-30 2019-05-30 Outpatient Trinity Galarza [id number] Common 15:30:00 15:30:00 [facility] it Road [facility] Results This patient has no known results.
--- NOTE | 2023-06-08 00:21 | EDPHYS ---
Physician Documentation [facility] Name: Francisco Dean Age: 42 yrs Sex: Male : 1980 Arrival Date: 06/07/2023 Time: 23:07 Bed Waiting Private MD: ED Physician Serge Ndiaye HPI: 06/07 23:55 This 42 yrs old Male presents to ER via Unassigned with complaints of cp Toothache. 23:55 The patient presents with pain. cp 23:55 The problem is located in the upper right first molar (#3). cp 23:55 Onset: The symptoms/episode began/occurred 3 day(s) ago. cp 23:55 Duration: The symptoms are continuous, and are steadily getting worse. Associated signs cp and symptoms: Pertinent negatives: chills, dysphagia, fever, swelling, facial. Severity of symptoms: in the emergency department the symptoms are unchanged, despite home interventions. Historical: - Allergies: 06/08 00:22 No Known Allergies; as6 - PMHx: 00:22 diabetes mellitus; Hypertensive disorder; knee pain; L3,4,5 bulging; as6 - PSHx: 00:22 right knee; as6 - Immunization history:: Client reports receiving the 2nd dose of the Covid vaccine. - Social history:: Smoking status: Patient denies any tobacco usage or history of. ROS: 00:00 Constitutional: Negative for body aches, chills, fever, poor PO intake. cp 00:00 Eyes: Negative for injury, pain, redness, and discharge. cp 00:00 ENT: Positive for dental pain, ear pain, rhinorrhea, sinus congestion, sinus pain, sore throat, Negative for drainage from ear(s). 00:00 Neck: Negative for pain with movement, pain at rest, stiffness. 00:00 Cardiovascular: Negative for chest pain, palpitations. 00:00 Respiratory: Negative for cough, shortness of breath, wheezing. 00:00 Abdomen/GI: Negative for abdominal pain, vomiting, diarrhea, constipation. 00:00 Neuro: Positive for headache, Negative for altered mental status, weakness. 00:00 All other systems are negative. Exam: 00:05 Constitutional: The patient appears in no acute distress, alert, awake, non-toxic, well cp developed, well nourished, obese, uncomfortable. 00:05 Head/Face: Normocephalic, atraumatic. cp 00:05 Eyes: Periorbital structures: appear normal, Conjunctiva: normal, no exudate, no injection, Sclera: no appreciated abnormality, Lids and lashes: appear normal, bilaterally. 00:05 ENT: External ear(s): are unremarkable, Ear canal(s): are normal, clear, TM's: dullness, bilaterally, Nose: is normal, Mouth: Lips: moist, Oral mucosa: moist, Posterior pharynx: Airway: no evidence of obstruction, patent, Dental exam: abscess, is not appreciated, dental caries, that is mild, diffusely, gum swelling, not appreciated, pain, that is moderate, specifically in the upper right first molar (#3), Voice: is normal. 00:05 Neck: ROM/movement: is normal, is supple, without pain, no range of motions limitations, no meningismus, no nuchal rigidity, Lymph nodes: no appreciated lymphadenopathy. 00:05 Chest/axilla: Inspection: normal. 00:05 Cardiovascular: Rate: normal. 00:05 Respiratory: the patient does not display signs of respiratory distress, Respirations: normal, no use of accessory muscles, no retractions, labored breathing, is not present, Breath sounds: are clear throughout, no decreased breath sounds, no stridor, no wheezing. 00:05 Abdomen/GI: Inspection: obese 00:05 Skin: cellulitis, is not appreciated, no rash present. Vital Signs: 00:21 BP 144 / 84; Pulse 75; Resp 20 S; Temp 98.8(O); Pulse Ox 96% on R/A; Weight 165.56 kg as6 (R); Height 6 ft. 2 in. (R); Pain 10/10; 00:21 Body Mass Index 46.86 (165.56 kg, 187.96 cm) as6 00:21 Pain Scale: Adult as6 MDM: 00:20 Data reviewed: vital signs, nurses notes. cp 00:20 Differential diagnosis: dental caries, dental abscess, pericoronitis. I considered the cp following discharge prescriptions or medication management in the emergency department Medications were administered in the Emergency Department. See MAR. Care significantly affected by the following chronic conditions: Diabetes, Hypertension, Obesity. Counseling: I had a detailed discussion with the patient and/or guardian regarding: the historical points, exam findings, and any diagnostic results supporting the discharge/admit diagnosis, the need for outpatient follow up, a dentist, to return to the emergency department if symptoms worsen or persist or if there are any questions or concerns that arise at home. Response to treatment: the patient's symptoms have mildly improved after treatment. 00:21 Patient medically screened. cp Administered Medications: 00:30 Drug: HYDROcodone-acetaminophen PO 5 mg-325 mg 1 tabs Route: PO; as 00:30 Follow up: Response: No adverse reaction as6 00:30 Drug: Ibuprofen PO 800 mg Route: PO; as 00:30 Follow up: Response: No adverse reaction as 00:30 Drug: Clindamycin PO 300 mg Route: PO; 00:31 Follow up: Response: No adverse reaction as6 Disposition: 05:54 Co-signature as Attending Physician, Serge Ndiaye MD I agree with the assessment sp4 and plan of care. I reviewed the patient's care provided by the Advanced Practice Provider and agree with the diagnosis and treatment plan. Disposition Summary: 06/08/23 00:21 Discharge Ordered Location: Home cp Problem: new cp Symptoms: have improved cp Condition: Stable cp Diagnosis - Disorder of teeth and supporting structures, unspecified cp Followup: cp - With: Private Physician - When: 2 - 3 days - Reason: Recheck today's complaints Discharge Instructions: - Discharge Summary Sheet cp - Dental Pain cp Forms: - Medication Reconciliation Form cp - Thank You Letter cp - Antibiotic Education cp - Prescription Opioid Use cp - Patient Portal Instructions cp Prescriptions: - Clindamycin HCl 300 mg Oral Capsule - take 1 capsule by ORAL route every 6 hours for 10 days; 40 capsule; Refills: 0, cp Product Selection Permitted - Diclofenac Sodium 75 mg Oral Tablet Sustained Release - take 1 tablet by ORAL route 2 times per day; 30 tablet; Refills: 0, Product cp Selection Permitted Signatures: Merlin Sales PA PA cp Slawson, Ashby, RN RN as6 Serge Ndiaye MD MD sp4
--- NOTE | 2023-06-08 00:32 | ER ---
Nurse's Notes [facility] Name: Francisco Dean Age: 42 yrs Sex: Male : 1980 Arrival Date: 06/07/2023 Time: 23:07 Bed Waiting Private MD: Diagnosis: Disorder of teeth and supporting structures, unspecified Presentation: 06/08 00:23 Chief complaint: Patient states: toothache that started about 3 days ago and has as6 progressively gotten worse. Coronavirus screen: At this time, the client does not indicate any symptoms associated with coronavirus-19. Ebola Screen: No symptoms or risks identified at this time. Initial Sepsis Screen: Does the patient meet any 2 criteria? No. Patient's initial sepsis screen is negative. Does the patient have a suspected source of infection? No. Patient's initial sepsis screen is negative. Risk Assessment: Do you want to hurt yourself or someone else? Patient reports no desire to harm self or others. Onset of symptoms was June 05, 2023. 00:23 Acuity: WALESKA 5 as6 00:23 Method Of Arrival: Ambulatory as6 Triage Assessment: 00:24 General: Appears uncomfortable, Behavior is calm, cooperative. Pain: Complains of pain as6 in right jaw. EENT: Poor dentition noted. Dental caries noted in upper right first molar (#3) Reports pain in mouth. Respiratory: Respiratory effort is even, unlabored. Historical: - Allergies: 00:22 No Known Allergies; as6 - PMHx: 00:22 diabetes mellitus; Hypertensive disorder; knee pain; L3,4,5 bulging; as6 - PSHx: 00:22 right knee; as6 - Immunization history:: Client reports receiving the 2nd dose of the Covid vaccine. - Social history:: Smoking status: Patient denies any tobacco usage or history of. Screenin:24 [facility] ED Fall Risk Assessment (Adult) Score/Fall Risk Level 0 - 2 = Low Risk. Abuse as6 screen: Denies threats or abuse. Denies injuries from another. Nutritional screening: No deficits noted. Tuberculosis screening: No symptoms or risk factors identified. Vital Signs: 00:21 BP 144 / 84; Pulse 75; Resp 20 S; Temp 98.8(O); Pulse Ox 96% on R/A; Weight 165.56 kg as6 (R); Height 6 ft. 2 in. (R); Pain 10; 00:21 Body Mass Index 46.86 (165.56 kg, 187.96 cm) as6 00:21 Pain Scale: Adult as6 ED Course: 06/07 23:09 Patient arrived in ED. ag3 23:15 Merlin Sales PA is PHCP. cp 23:15 Serge Ndiaye MD is Attending Physician. cp 06/08 00:22 Arm band placed on. as6 00:24 Triage completed. as6 00:24 Placed in gown. Bed in low position. Provided Education on: follow up with dentist . as6 00:25 No provider procedures requiring assistance completed. Patient did not have IV access as6 during this emergency room visit. Administered Medications: 00:30 Drug: HYDROcodone-acetaminophen PO 5 mg-325 mg 1 tabs Route: PO; as6 00:30 Follow up: Response: No adverse reaction as6 00:30 Drug: Ibuprofen PO 800 mg Route: PO; as6 00:30 Follow up: Response: No adverse reaction as6 00:30 Drug: Clindamycin PO 300 mg Route: PO; as6 00:31 Follow up: Response: No adverse reaction as6 Medication: 00:25 VIS not applicable for this client. as6 Outcome: 00:21 Discharge ordered by . cp 00:25 Discharged to home ambulatory. as6 00:25 Condition: stable 00:25 Discharge instructions given to patient, Instructed on discharge instructions, follow up and referral plans. medication usage, Demonstrated understanding of instructions, follow-up care, medications, Prescriptions given X 2. 00:31 Patient left the ED. as6 Signatures: Merlin Sales PA PA cp Gomez, Alice ag3 Fernando Pitts, RN RN as6
[2023-06-08] MEDS ORDERED: IBUPROFEN 400 MG TAB ONE (00:37)
[2023-06-08 00:38] VITALS: BP 144/84; TEMP 98.8; O2SAT 96
[2023-06-08] MEDS ORDERED: HYDROCODONE/APAP 5/325 MG TAB ONE (00:38)
== END 2023-06-08 00:31 | disposition home or self-care (01) ==
LOC: ER 23:07
DX: K08.89 Other specified disorders of teeth and supporting structures (principal)

== ENCOUNTER 2024-09-12 01:00 | Emergency (ER) | payer OTHER ==
--- OUTSIDE RECORDS SUMMARY | 2024-09-12 01:03 | XMS REPORT | Continuity of Care Document ---
Author Name Unknown Address [address] [facility] [place] [address] [facility] thconnect Address [address] [facility] [place] [address] Care Team Providers Care [facility] Division Chief Name Role Phone Samantha Michele MD Primary Care Physician Jazzy Solis Attending Clinician + [phone] SAMANTHA MICHELE Attending Clinician Laury Contreras Attending Clinician [phone] LAURY MAHONEY Attending Clinician Unavailcarisa lopes Unknown, Attending Attending Clinician Unavailab le Doctor Unassigned, [place] Attending Clinician U navailable JAZZY MICHAELS Attending Clinician Unavailable Therapy, [facility] Attending Clinician Unavailable Merrill Sebastian MD Attending Clinician + [phone] MERRILL SEBASTIAN Attending Clinician Unavailable EbrahiMonie Gonzalez Attending Clinician + [phone] MONIE TAVERAS Attending Clinician Unavailable Only, Ang Db Test Attending Clinician UnavailElise Tolentino LVN Attending Clinician Unavai lable Lab, Ang - Db Attending Clinician Unavailable Renetta FOSTER, Froylan Sullivan Attending Clinician + [phone] FROYLAN JACKSON Attending Clinician Samantha Beckford MD Attending Clinician +[phone] GIOVANNA HU Attending Clinician UnavailChalo Jimenez MDil K.HGolden Attending Clinician + [phone], [facility] Lab Attending Clinician Unavailable DANYELL ALDRICH Attending Clinician Unavailable Kaye Lee MD Attending Clinician [phone] KAYE LEE Attending Clinician UnavailDanyell Kruse S Attending Clinician [phone] Juanito Cunha DO Attending Clinician [phone] Osiel Herzog MD Attending Clinician +[phone] Belem Conn DO Attending Clinician [phone] Provider, [facility] Attending Clinician Un available Brando Fish Attending Clinician [phone] ACE LORENZO Attending Clinician Unavailable Ace Lorenzo MD Attending Clinician [phone] [facility], [facility] Attending Clinician Unav Desi Joseph MD Attending Clinician Aleksandra Mcelroy MD Attending Clinician [phone] BRANDO LAKHANI Attending Clinician Unavailable KAYE LEE Admitting Clinician UnavailACE Humphries Admitting Clinician Unavailable Ace Lorenzo MD Admitting Clinician [phone] Payers Payer Name Policy Type Policy Number Effective Date Expirati on Date Source [id number] 2017 00:00:00 Problems Condition Name Condition Details Condition Category Status Onset Date Resolution Date Last Treatment Date Treating Clinician Comments Source Vitamin D deficiency Vitamin D deficiency Disease Active 03-23 00:00: 00 [facility] Elevated LFTs Elevated LFTs Disease Active 03-23 00:00: 00 [facility] Elevated bilirubin Elevated bilirubin Disease Active 03-23 00:00: 00 [facility] TIA (transient ischemic attack) TIA (transient ischemic attack) Disease Active 9-07 00:00: 00 [facility] Hypertrigl yceridemia Hypertrigl yceridemia Disease Active 2019-11 0-25 00:00: 00 [facility] Essential hypertensi on Essential hypertensi on Disease Active 03-25 00:00: 00 [facility] History of diverticul itis History of diverticul itis Disease Active 03-25 00:00: 00 [facility] Diabetes mellitus type 2 in obese Diabetes mellitus type 2 in obese Disease Active 03-25 00:00: 00 [facility] Fatty liver Fatty liver Disease Active 03-25 00:00: 00 [facility] Hepatosple nomegaly Hepatosple nomegaly Disease Active 03-25 00:00: 00 [facility] Morbid obesity Morbid obesity Disease Active 03-25 00:00: 00 [facility] Body mass index (BMI) of 50-59.9 in adult Body mass index (BMI) of 50-59.9 in adult Problem Active [facility] PTSD (post-trau matic stress disorder) PTSD (post-trau matic stress disorder) Diagnosis Active [facility] Obstructiv e sleep apnea syndrome Obstructiv e sleep apnea syndrome Diagnosis Active [facility] Allergies, Adverse Reactions, Alerts Allergy Name Allergy Type Status Severity Reaction(s) Onset Date Inactive Date Treating Clinician Comments Source NO KNOWN ALLERGIE S Drug Class Active [facility] Social History Social Habit Start Date Stop Date Quantity Comments Source History of tobacco use Smokes tobacco daily [facility] Exposure to SARS-CoV-2 (event) 2022-09-10 00:00:00 2022-09-20 09:47:00 Not sure [facility] Alcohol intake 2022-09-20 00:00:00 2022-09-20 00:00:00 Current drinker of alcohol (finding) [facility] Tobacco use and exposure 2022-05-20 00:00:00 2022-05-20 00:00:00 Smokeless tobacco non-user [facility] Tobacco Comment 2022-05-20 00:00:00 2022-05-20 00:00:00 Vapes everyday [facility] History of Social function 2021-12-08 00:00:00 2021-12-08 00:00:00 [facility] History SDOH Alcohol Frequency 2020-08-22 00:00:00 2020-08-22 00:00:00 99 [facility] History SDOH Alcohol Std Drinks 2020-08-22 00:00:00 2020-08-22 00:00:00 99 [facility] History SDOH Alcohol Binge 2020-08-22 00:00:00 2020-08-22 00:00:00 99 [facility] Alcohol Comment 2020-08-22 00:00:00 2020-08-22 00:00:00 rare [facility] Sex Assigned At 1980 00:00:00 1980 00:00:00 [facility] Smoking Status Start Date Stop Date Source Smokes tobacco daily 2022-05-20 00:00:00 [facility] Medications Ordered Medication Name Filled Medication Name Start Date Stop Date Current Medication? Ordering Clinician Indication Dosage Frequency Signature (SIG) Comments Components Source ROSUVASTATI N 5 mg tablet 01-29 00:00: 00 Yes [id number] TAKE 1 TABLET BY MOUTH EVERYDAY AT BEDTIME [facility] METFORMIN ER 750 mg 24 hr tablet 12-29 00:00: 00 Yes [id number] TAKE 1 TABLET BY MOUTH TWICE A DAY WITH MEALS [facility] LISINOPRIL 5 mg tablet 12-29 00:00: 00 Yes [id number] TAKE 1 TABLET BY MOUTH EVERY DAY [facility] ROSUVASTATI N 5 mg tablet 12-29 00:00: 00 01-29 00:00 :00 No [id number] TAKE 1 TABLET BY MOUTH EVERYDAY AT BEDTIME [facility] clotrimazol e 1 % ointment 2021-11 00:00: 00 09-28 05:59 :00 No [id number] 1{dose} Apply 1 Dose to area(s) 2 (two) times daily for 7 days. [facility] Blood-Gluco se Transmitter (DEXCOM G6 TRANSMITTER ) Abi 04-19 00:00: 00 Yes [id number] Use as directed for glucose monitoring [facility] Blood-Gluco se Meter,Jayy nuous (DEXCOM G6 TRAVELING OPERATOR) Misc 04-19 00:00: 00 Yes [id number] Use as directed for glucose monitoring [facility] Blood-Gluco se Sensor (DEXCOM G6 SENSOR) Abi 04-19 00:00: 00 Yes [id number] Use as directed for glucose monitoring for DM type 2 [facility] ergocalcife rol, vitamin d2, (VITAMIN D2) 1,250 mcg (50,000 unit) capsule 03-23 00:00: 00 Yes [id number] Take 1 capsule by mouth weekly. [facility] SITagliptin (JANUVIA) 100 mg tablet 03-20 00:00: 00 Yes [id number] 100mg Take 1 tablet by mouth daily. [facility] lisinopriL 5 mg tablet 03-20 00:00: 00 12-29 00:00 :00 No [id number] 5mg Take 1 tablet by mouth daily. [facility] metformin ER 750 mg 24 hr tablet 03-20 00:00: 00 12-29 00:00 :00 No [id number] 750mg Take 1 tablet by mouth 2 (two) times daily with meals. [facility] rosuvastati n 5 mg tablet 03-20 00:00: 00 12-29 00:00 :00 No [id number] 5mg Take 1 tablet by mouth at bedtime. [facility] lisdexamfet amine (VYVANSE) 30 mg capsule 1- 00:00: 00 Yes [id number] 30mg Take 1 capsule by mouth every morning. [facility] fluocinonid e 0.05 % cream 06-16 00:00: 00 Yes [id number] Apply to area(s) 2 (two) times daily. [facility] mupirocin 2 % ointment 07-09 00:00: 00 07-15 00:00 :00 No [id number] Apply to area(s) 3 (three) times daily. [facility] hydrOXYzine 25 mg tablet 9- 00:00: 00 07-15 00:00 :00 No [id number] 25mg Take 1 tablet by mouth every 6 (six) hours as needed for Itching. [facility] MELOXICAM 15 mg tablet 8-10 00:00: 00 07-15 00:00 :00 No [id number] 15mg TAKE 1 TABLET BY MOUTH ONCE DAILY NEEDED FOR PAIN OR INFLAMMATI ON. TAKE WITH FOOD. [facility] triamcinolo ne acetonide 0.1 % ointment -16 00:00: 00 08-22 00:00 :00 No [id number] Apply to area(s) 2 (two) times daily. [facility] lisinopril 5 mg tablet 04-04 00:00: 00 11-13 00:00 :00 No [id number] 5mg Take 1 tablet by mouth daily. [facility] Blood-Gluco se Meter Kit 03-26 00:00: 00 07-15 00:00 :00 No [id number] Check glucose once daily before breakfast; Diagnosis code E11.9 [facility] blood sugar diagnostic (BLOOD GLUCOSE TEST) strip 03-26 00:00: 00 07-15 00:00 :00 No [id number] Check glucose once daily before breakfast; Diagnosis code E11.9 [facility] Lancets Misc 03-26 00:00: 00 07-15 00:00 :00 No [id number] Check glucose once daily before breakfast; Diagnosis code E11.9 [facility] econazole nitrate 1 % cream 03-26 00:00: 00 07-15 00:00 :00 No [id number] Apply to feet BID until the fungal infection has resolved [facility] metformin ER 500 mg 24 hr tablet 03-26 00:00: 09-01 00:00 :00 No [id number] 500mg Take 1 tablet by mouth daily with breakfast. [facility] traMADol (ULTRAM) 50 mg tablet 03-19 00:00: 00 07-15 00:00 :00 No [id number] 50mg Take 1 tablet by mouth every 6 (six) hours as needed for Pain (scale 7-10). [facility] dicyclomine 20 mg tablet 03-19 00:00: 08-22 00:00 :00 No [id number] 20mg Take 1 tablet by mouth every 6 (six) hours as needed for Abdominal pain. [facility] BusPIRone HCl BusPIRone HCl 05-30 00:00: 00 Yes Brian Ja 1 tablet [facility] HydrOXYzine HCl HydrOXYzine HCl 05-30 00:00: 00 Yes Brian Ja 1 tablet as needed [facility] Trazodone HCl Trazodone HCl 05-30 00:00: 00 Yes Brian Ja 1 tablet at bedtime as needed [facility] Immunizations Ordered Immunization Name Filled Immunization Name Date Status Comments Source VALENTINAELOVIMAB 2022-05-21 00:00:00 Completed [facility] BEBTELOVIMAB 2022-05-21 00:00:00 Completed [facility] BEBTELOVIMAB 2022-05-21 00:00:00 Completed [facility] BEBTELOVIMAB 2022-05-21 00:00:00 Completed [facility] BEBTELOVIMAB 2022-05-21 00:00:00 Completed [facility] BEBTELOVIMAB 2022-05-21 00:00:00 Completed [facility] BEBTELOVIMAB 2022-05-21 00:00:00 Completed [facility] BEBTELOVIMAB 2022-05-21 00:00:00 Completed [facility] BEBTELOVIMAB 2022-05-21 00:00:00 Completed [facility] BEBTELOVIMAB 2022-05-21 00:00:00 Completed [facility] BEBTELOVIMAB Unknown Completed [facility] Vital Signs Vital Name Observation Time Observation Value Comments S jarad Systolic blood pressure 2022-09-20 15:50:00 168 mm[Hg] [facility] Diastolic blood pressure 2022-09-20 15:50:00 105 mm[Hg] [facility] Heart rate 2022-09-20 15:50:00 74 /min [facility] Body temperature 2022-09-20 15:50:00 36.67 Sabrina [facility] Respiratory rate 2022-09-20 15:50:00 16 /min [facility] Body height 2022-09-20 15:50:00 182.9 cm [facility] Body weight 2022-09-20 15:50:00 170.099 kg [facility] BMI 2022-09-20 15:50:00 50.86 kg/m2 [facility] Oxygen saturation in Arterial blood by Pulse oximetry 2022-09-20 15:50:00 97 /min [facility] Systolic blood pressure 2022-05-21 22:15:00 129 mm[Hg] [facility] Diastolic blood pressure 2022-05-21 22:15:00 83 mm[Hg] [facility] Heart rate 2022-05-21 22:15:00 76 /min [facility] Body temperature 2022-05-21 22:15:00 36.61 Sabrina [facility] Respiratory rate 2022-05-21 22:15:00 20 /min [facility] Oxygen saturation in Arterial blood by Pulse oximetry 2022-05-21 22:15:00 95 /min [facility] Body height 2022-05-21 21:15:00 182.9 cm [facility] Body weight 2022-05-21 21:15:00 170.099 kg [facility] BMI 2022-05-21 21:15:00 50.86 kg/m2 [facility] Procedures Procedure Date / Time Performed Performing Clinicia n Source ASSIGNMENT OF BENEFITS 2022-09-20 15:48:47 Docto r Unassigned, [place] [facility] CONSENT/REFUSAL FOR DIAGNOSIS AND TREATMENT 2022-05-21 05:01:00 Doctor Unassigned, [place] [facility] Encounters Start Date/Time End Date/Time Encounter Type Admission Type Attending [facility] Care Department Encounter ID Source 2021-09-07 06:31:07 Emergency [facility] [id number] [facility] 2021-09-06 06:31:50 Emergency [facility] [id number] [facility] 2021-09-05 17:58:07 Emergency [facility] [id number] [facility] 2021-09-05 17:42:54 Emergency [facility] [id number] [facility] 2023-12-16 00:00:00 2023-12-16 00:00:00 [facility]ill Ny [facility] 1..840.114 350.1.13.10 4.2.7.2.686 [id number] [facility] 2023-04-28 11:15:00 2023-04-28 11:15:00 Outpatient SAMANTHA NICOLAS [facility] [id number] [facility] 2023-04-21 14:00:00 2023-04-21 14:00:00 Outpatient SAMANTHA NICOLAS [facility] [id number] [facility] 2023-01-19 00:00:00 2023-01-19 00:00:00 Refill Moiz Michaelslie [facility] 1..840.114 350.1.13.10 4.2.7.2.686 [id number] [facility] 2022-12-26 00:00:00 2022-12-26 00:00:00 Refill Blayne Jazzy A [facility] NABEEL?[facility] 1..840.114 350.1.13.10 4.2.7.2.686 [id number] [facility] 2022-12-15 00:00:00 2022-12-15 00:00:00 Refill BlayneJazzy [facility] NABEEL?[facility] 1.284.114 350.1.13.10 4.2.7.2.686 [id number] [facility] 2022-09-25 00:00:00 2022-09-25 00:00:00 Letter (Out) Tigist Mahoneytany [facility] NABEEL?[facility] 1.84114 350.1.13.10 4.2.7.2.686 [id number] [facility] 2022-09-20 09:40:00 2022-09-20 10:33:37 Outpatient R LAURY MAHONEY [facility] [id number] [facility] 2022-09-20 09:40:00 2022-09-20 10:33:37 Urgent Care Laury Mahoney Unknown, Attending [facility] 1.114 350.1.13.10 4.2.7.2.686 [id number] [facility] 2022-09-20 00:00:00 2022-09-20 00:00:00 Orders Only Doctor Unassigned, [place] [facility] 1.114 350.1.13.10 4.2.7.2.686 [id number] [facility] 2022-09-20 00:00:00 2022-09-20 00:00:00 Letter (Out) Lorelei, Laury [facility] NABEEL?[facility] 1.284.114 350.1.13.10 4.2.7.2.686 [id number] [facility] 2022-09-18 08:30:00 2022-09-18 08:30:00 Outpatient R BLAYNE, JAZZY [facility] [id number] [facility] 2022-08-24 00:00:00 2022-08-24 00:00:00 Refill Jazzy Michaels [facility] 1..840.114 350.1.13.10 4.2.7.2.686 [id number] [facility] 2022-07-31 16:30:00 2022-07-31 16:30:00 Outpatient R BLAYNEJAZZY [facility] [id number] [facility] 2022-05-21 16:00:00 2022-05-21 17:00:00 Nurse Visit Therapy, [facility] Merrill Gale [facility] 1..840.114 350.1.13.10 4.2.7.2.686 [id number] [facility] 2022-05-21 16:00:00 2022-05-21 16:00:00 Outpatient MERRILL GALDAMEZ [facility] [id number] [facility] 2022-05-21 00:00:00 2022-05-21 00:00:00 Orders Only Doctor Unassigned, [place] [facility] 1.840.114 350.1.13.10 4.2.7.2.686 [id number] [facility] 2022-05-20 18:00:00 2022-05-20 18:37:24 Urgent Care Monie Taveras [facility] 1..840.114 350.1.13.10 4.2.7.2.686 [id number] [facility] 2022-05-20 18:00:00 2022-05-20 18:37:24 Outpatient R MONIE TAVERAS [facility] [id number] [facility] 2022-05-20 18:00:00 2022-05-20 18:00:00 Outpatient R MONIE TAVERAS [facility] [id number] [facility] 2022-05-20 17:30:00 2022-05-20 17:30:00 [facility] [id number] [facility] 2022-04-20 14:30:00 2022-04-20 14:45:00 Laboratory Only Only, Ang Db Test Tigist Mahoneytany [facility] 1.2.840.114 350.1.13.10 4.2.7.2.686 [id number] [facility] 2022-04-20 14:30:00 2022-04-20 14:20:16 Outpatient R TIGIST MAHONEYTANY [facility] [id number] [facility] 2022-04-20 00:00:00 2022-04-20 00:00:00 Patient Secure Msg Elise Benítez [facility] NABEEL?[facility] 1.2840.114 350.1.13.10 4.2.7.2.686 [id number] [facility] 2022-04-16 00:00:00 2022-04-16 00:00:00 Patient Secure Msg Jazzy Michaels Nate [facility] NABEEL?[facility] 1.2.840.114 350.1.13.10 4.2.7.2.686 [id number] [facility] 2022-04-14 00:00:00 2022-04-14 00:00:00 Telephone Jazzy Michaels [facility] NABEEL?[facility] 1.2840.114 350.1.13.10 4.2.7.2.686 [id number] [facility] 2022-03-23 00:00:00 2022-03-23 00:00:00 Telephone Jazzy Michaels [facility] GEGE LEES?[facility] 1.2.840.114 350.1.13.10 4.2.7.2.686 [id number] [facility] 2022-03-20 13:15:00 2022-03-20 13:30:00 It Application Architect Visit Lab, Ang - Db Jazzy [facility] 1..840.114 350.1.13.10 4.2.7.2.686 [id number] [facility] 2022-03-20 12:30:00 2022-03-20 13:16:24 Outpatient R MOIZ MICHAELSLIE [facility] [id number] [facility] 2022-03-20 12:30:00 2022-03-20 13:16:24 Office Visit [facility] 1..840.114 350.1.13.10 4.2.7.2.686 [id number] [facility] 2022-03-20 12:30:00 2022-03-20 13:16:24 Outpatient R MOIZ MICHAELSLIE [facility] [id number] [facility] 2022-03-19 00:00:00 2022-03-19 00:00:00 [place]ill [place] Froylan Sullivan [facility] 1..840.114 350.1.13.10 4.2.7.2.686 [id number] [facility] 2022-03-14 00:00:00 2022-03-14 00:00:00 Refill Renetta Marcoful Nate [facility] 1.2.840.114 350.1.13.10 4.2.7.2.686 [id number] [facility] 2022-01-29 00:00:00 2022-01-29 00:00:00 Refjenny [place] [facility] NABEEL?[facility] 1.2.840.114 350.1.13.10 4.2.7.2.686 [id number] [facility] 2021-12-15 10:30:00 2021-12-15 10:30:00 Outpatient FROYLAN LOPEZ [facility] [id number] [facility] 2021-12-11 00:00:00 2021-12-11 00:00:00 Telephone Samantha Michele [facility] NABEEL?[facility] 1..840.114 350.1.13.10 4.2.7.2.686 [id number] [facility] 2021-12-11 00:00:00 2021-12-11 00:00:00 Orders Only Doctor Unassigned, [place] [facility] 1.2.840.114 350.1.13.10 4.2.7.2.686 [id number] [facility] 2021-12-09 00:00:00 2021-12-09 00:00:00 Telephone Samantha Michele eliz [facility] NABEEL?[facility] 1.2.840.114 350.1.13.10 4.2.7.2.686 [id number] [facility] 2021-12-08 16:00:00 2021-12-08 16:00:00 Outpatient R SAMANTHA MICHELE [facility] [id number] [facility] 2021-12-08 16:00:00 2021-12-08 16:00:00 Office Visit Samantha Michele [facility] NABEEL?[facility] 1.2.840.114 350.1.13.10 4.2.7.2.686 [id number] [facility] 2021-12-08 16:00:00 2021-12-08 15:54:45 Outpatient R SAMANTHA MICHELE [facility] [id number] [facility] 2021-08-28 10:00:00 2021-08-28 10:00:00 Outpatient R GIOVANNA HU [facility] [id number] [facility] 2021-08-26 00:00:00 2021-08-26 00:00:00 Patient Secure Msg Doctor Unassigned, [place] [facility] 1.2.840.114 350.1.13.10 4.2.7.2.686 [id number] [facility] 2021-08-14 00:00:00 2021-08-14 00:00:00 Outpatient R GIOVANNA HU [facility] [id number] [facility] 2021-08-04 08:00:00 2021-08-04 08:00:00 Outpatient R GIOVANNA HU [facility] [id number] [facility] 2021-07-17 08:30:00 2021-07-17 23:59:00 Hospital Encounter Giovanna Hu [facility] Building 1..840.114 350.1.13.10 4.2.7.2.686 [id number] [facility] 2021-07-17 13:50:39 2021-07-17 15:15:50 Office Visit Giovanna Hu [facility] Building 1.2.840.114 350.1.13.10 4.2.7.2.686 [id number] [facility] 2021-07-17 14:30:00 2021-07-17 14:30:00 Outpatient R GIOVANNA HU [facility] [id number] [facility] 2021-07-15 14:31:51 2021-07-15 16:02:42 Office Visit RenettaBarbi balderramakathrynalden Sullivan [facility] 1..840.114 350.1.13.10 4.2.7.2.686 [id number] [facility] 2021-07-15 14:30:00 2021-07-15 14:30:00 Outpatient R RENETTABARBI BALDERRAMAKATHRYNALDEN [facility] [id number] [facility] 2021-06-18 08:46:18 2021-06-18 09:01:18 It Application Architect Visit 2, Adc Lab Froylan Jackson [facility] Building 1..840.114 350.1.13.10 4.2.7.2.686 [id number] [facility] 2021-06-18 08:00:00 2021-06-18 08:00:00 Outpatient R RENETTABARBI BALDERRAMALISSETTE [facility] [id number] [facility] 2021-06-16 00:00:00 2021-06-16 00:00:00 Patient Secure Msg Froylan Jackson [facility] Building One 1..840.114 350.1.13.10 4.2.7.2.686 [id number] 044 [id number] [facility] 2021-06-13 13:10:30 2021-06-13 13:49:12 Office Visit [place] bal[place]ama [facility] Building One 1..840.114 350.1.13.10 4.2.7.2.686 [id number] 044 [id number] [facility] 2021-06-13 13:00:00 2021-06-13 13:00:00 Outpatient R RENETTAFROYLAN BALDERRAMA [facility] [id number] [facility] 2021-06-12 00:00:00 2021-06-12 00:00:00 Refill Marco Jacksonful A [facility] Building One 1.840.114 350.1.13.10 4.2.7.2.686 [id number] 044 [id number] [facility] 2021-06-11 00:00:00 2021-06-11 00:00:00 Refill Marco Jacksonful [facility] Building One 1.0.114 350.1.13.10 4.2.7.2.686 [id number] [id number] [facility] 2021-06-10 00:00:00 2021-06-10 00:00:00 Orders Only Doctor Unassigned, [place] [facility] 1.0.114 350.1.13.10 4.2.7.2.686 [id number] [facility] 2021-05-15 00:00:00 2021-05-15 00:00:00 Refill Marco Jacksonful [facility] Building One 1.0.114 350.1.13.10 4.2.7.2.686 [id number] 044 [id number] 2021-05-15 00:00:00 2021-05-15 00:00:00 Refill Marco Jacksonful Nate [facility] Building One .0.114 350.1.13.10 4.2.7.2.686 [id number] 044 [id number] [facility] 2021-04-22 00:00:00 2021-04-22 00:00:00 Refill Marco Jacksonful Nate [facility] Building One .0.114 350.1.13.10 4.2.7.2.686 [id number] 044 [id number] 2021-04-22 00:00:00 2021-04-22 00:00:00 Fahad Renetta [facility]issette [facility] One 1.2.840.114 350.1.13.10 4.2.7.2.686 [id number] [id number] [facility] 2021-03-27 00:00:00 2021-03-27 00:00:00 Orders Only Doctor Unassigned, [place] [facility] 1.2.840.114 350.1.13.10 4.2.7.2.686 [id number] 2021-03-27 00:00:00 2021-03-27 00:00:00 Orders Only Doctor Unassigned, [place] [facility] 1.2.840.114 350.1.13.10 4.2.7.2.686 [id number] [facility] 2021-03-18 13:45:00 2021-03-18 13:45:00 Outpatient R DANYELL ALDRICH [facility] [id number] [facility] 2021-03-08 13:27:21 2021-03-08 23:59:00 Hospital Encounter Kaye Lee [facility] 1.2.840.114 350.1.13.10 4.2.7.2.686 [id number] 2021-03-08 13:27:21 2021-03-08 23:59:00 Hospital Encounter Kaye Lee [facility] 1.2.840.114 350.1.13.10 4.2.7.2.686 [id number] [facility] 2021-03-08 13:27:21 2021-03-08 23:59:00 Outpatient R KAYE LEE [facility] [id number] [facility] 2021-03-08 00:00:00 2021-03-08 00:00:00 Outpatient R KAYE LEE [facility] [id number] [facility] 2021-03-04 09:45:00 2021-03-04 09:45:00 Outpatient Lily ALDRICHDANYELL [facility] [id number] [facility] 2021-03-04 09:15:02 2021-03-04 09:30:02 Office Visit [facility] [place] 1.2.840.114 350.1.13.10 4.2.7.2.686 [id number] [facility] 2021-03-04 09:15:02 2021-03-04 09:30:02 Office Visit Sanjuana [facility] em[facility] [place] 1.2.840.114 350.1.13.10 4.2.7.2.686 [id number] 2021-03-04 00:00:00 2021-03-04 00:00:00 Letter (Out) Sanjuana [facility] Special[facility] ember [place] 1.2.840.114 350.1.13.10 4.2.7.2.686 [id number] [facility] 2021-03-04 00:00:00 2021-03-04 00:00:00 Letter (Out) Sanjuana [facility] Surgical Specialti ember [place] 1.2.840.114 350.1.13.10 4.2.7.2.686 [id number] 2021-02-27 00:00:00 2021-02-27 00:00:00 Telephone SanjuanaDanyell [facility] em[facility] [place] 1.2.840.114 350.1.13.10 4.2.7.2.686 [id number] [facility] 2021-02-18 16:00:54 2021-02-18 16:15:54 Office Visit AldrichDanyell [facility] ember [place] 1.2.840.114 350.1.13.10 4.2.7.2.686 [id number] [facility] 2021-02-18 15:45:00 2021-02-18 15:45:00 Outpatient R DANYELL ALDRICH [facility] [id number] [facility] 2021-02-18 00:00:00 2021-02-18 00:00:00 Letter (Out) [facility] 1.2840.114 350.1.13.10 4.2.7.2.686 [id number] [facility] 2021-02-18 00:00:00 2021-02-18 00:00:00 Froylan Maurice [facility] Office [facility] One 1.840.114 350.1.13.10 4.2.7.2.686 [id number] [facility] 2021-02-18 00:00:00 2021-02-18 00:00:00 Letter (Out) Sanjuana [facility] Surgical [facility] 1.2840.114 350.1.13.10 4.2.7.2.686 [id number] [facility] 2021-02-18 00:00:00 2021-02-18 00:00:00 Letter (Out) Sanjuana [facility] Surgical [facility] 1.2840.114 350.1.13.10 4.2.7.2.686 [id number] 2021-02-07 00:00:00 2021-02-07 00:00:00 Patient Secure Msg Doctor Unassigned, [place] [facility] 1.2840.114 350.1.13.10 4.2.7.2.686 [id number] [facility] 2021-02-06 00:00:00 2021-02-06 00:00:00 Orders Only Doctor Unassigned, [place] [facility] 1.2.840.114 350.1.13.10 4.2.7.2.686 [id number] [facility] 2021-01-29 13:24:02 2021-01-29 23:59:00 Hospital Encounter Kaye Lee [facility] 1.2.840.114 350.1.13.10 4.2.7.2.686 [id number] [facility] 2021-01-29 13:42:53 2021-01-29 14:40:25 Office Visit Kaye [facility] 1.2.840.114 350.1.13.10 4.2.7.2.686 [id number] [facility] 2021-01-29 14:00:00 2021-01-29 14:00:00 Outpatient R KAYE LEE [facility] [id number] [facility] 2021-01-29 00:00:00 2021-01-29 00:00:00 Telephone Kaye Lee [facility] 1.2.840.114 350.1.13.10 4.2.7.2.686 [id number] [facility] 2021-01-28 00:00:00 2021-01-28 00:00:00 Orders Only Doctor Unassigned, [place] [facility] 1.2.840.114 350.1.13.10 4.2.7.2.686 [id number] [facility] 2021-01-28 00:00:00 2021-01-28 00:00:00 Orders Only Doctor Unassigned, [place] [facility] 1.2.840.114 350.1.13.10 4.2.7.2.686 [id number] 2021-01-27 00:00:00 2021-01-27 00:00:00 Patient Outreach Juanito Cunha [facility] 1.2.840.114 350.1.13.10 4.2.7.2.686 [id number] [facility] 2021-01-22 03:11:00 2021-01-22 04:23:00 Emergency Osiel [facility] 1.2.840.114 350.1.13.10 4.2.7.2.686 [id number] [facility] 2020-11-10 00:00:00 2020-11-10 00:00:00 Refill RenettaBarbilissette Nate [facility] Building 1.2.840.114 350.1.13.10 4.2.7.2.686 [id number] [facility] 2020-10-24 00:00:00 2020-10-24 00:00:00 Refjenny RenettaBarbi balderramalissette [facility] Building One 1.2840.114 350.1.13.10 4.2.7.2.686 [id number] 044 [id number] [facility] 2020-09-26 02:51:00 2020-09-26 04:19:00 Emergency Osiel Herzog [facility] 1.2.840.114 350.1.13.10 4.2.7.2.686 [id number] [facility] 2020-09-16 00:00:00 2020-09-16 00:00:00 Patient Secure Msg Barbi Jacksonkathrynalden [facility] Building One 1.2.840.114 350.1.13.10 4.2.7.2.686 [id number] [id number] [facility] 2020-09-01 00:00:00 2020-09-01 00:00:00 Case Management Froylan Jackson [facility] Building One 1.20.114 350.1.13.10 4.2.7.2.686 [id number] [facility] 2020-08-23 11:19:20 2020-08-23 11:34:20 It Application Architect Visit 2, Adc Lab Froylan Jackson [facility] Building 1.20.114 350.1.13.10 4.2.7.2.686 [id number] [facility] 2020-08-23 11:15:00 2020-08-23 11:15:00 Outpatient R FROYLAN JACKSON [facility] [id number] [facility] 2020-08-22 11:26:11 2020-08-22 12:34:38 Office Visit Froylan Jackson [facility] Building One 1..114 350.1.13.10 4.2.7.2.686 [id number] [facility] 2020-08-22 11:15:00 2020-08-22 11:15:00 Outpatient R FROYLAN JACKSON [facility] [id number] [facility] 2020-07-25 01:05:00 2020-07-25 04:53:00 Emergency Osiel [facility] 1..114 350.1.13.10 4.2.7.2.686 [id number] [facility] 2020-07-25 00:00:00 2020-07-25 00:00:00 Patient Secure Msg Froylan Jackson [facility] Building One 1.2.114 350.1.13.10 4.2.7.2.686 [id number] [facility] 2020-07-23 16:26:2020-07-23 19:00:00 Emergency FabienBelem [facility] 1.2840.114 350.1.13.10 4.2.7.2.686 [id number] [facility] 2020-07-09 10:38:40 2020-07-09 11:43:19 Urgent Care Provider, [facility] Brando Lakhani [facility] Building One 1.20.114 350.1.13.10 4.2.7.2.686 [id number] [facility] 2020-07-09 11:00:00 2020-07-09 11:00:00 Outpatient R [facility] [id number] [facility] 2020-07-09 00:00:00 2020-07-09 00:00:00 Patient Secure Msg Froylan Jackson [facility] 1.0.114 350.1.13.10 4.2.7.2.686 [id number] [facility] 2020-06-17 00:00:00 2020-06-17 00:00:00 Refill Froylan Jackson [facility] Building 1.2840.114 350.1.13.10 4.2.7.2.686 [id number] [facility] 2020-05-28 00:00:00 2020-05-28 00:00:00 Telephone Froylan Jackson [facility] Building One 1.840.114 350.1.13.10 4.2.7.2.686 [id number] [facility] 2020-05-24 00:00:00 2020-05-24 00:00:00 Patient Secure Msg Doctor Unassigned, [place] [facility] 1.840.114 350.1.13.10 4.2.7.2.686 [id number] [facility] 2020-05-22 08:06:38 2020-05-22 11:38:07 Telemedici ne Visit Froylan Jackson [facility] Building 1.2.840.114 350.1.13.10 4.2.7.2.686 [id number] [facility] 2020-05-22 11:00:00 2020-05-22 11:00:00 Outpatient R BARBI JACKSONKATHRYNALDEN [facility] [id number] [facility] 2020-05-13 00:00:00 2020-05-13 00:00:00 Refill Froylan Jackson [facility] Building 1.2.840.114 350.1.13.10 4.2.7.2.686 [id number] [facility] 2020-05-13 00:00:00 2020-05-13 00:00:00 Telephone [place]bi balderramakathrynalden Sullivan [facility] Building One 1.2.840.114 350.1.13.10 4.2.7.2.686 [id number] [facility] 2020-04-03 00:00:00 2020-04-03 00:00:00 Refill Froylan Jackson [facility] Building 1.2.840.114 350.1.13.10 4.2.7.2.686 [id number] [facility] 2020-03-26 10:20:30 2020-03-26 13:57:54 Telemedici ne Visit Froylan Jackson [facility] Building 1.2.840.114 350.1.13.10 4.2.7.2.686 [id number] [facility] 2020-03-26 13:15:00 2020-03-26 13:15:00 Out[facility] [id number] [facility] 2020-03-25 07:59:08 2020-03-25 11:47:11 Telemedici ne Visit Froylan Jackson [facility] Building 1..114 350.1.13.10 4.2.7.2.686 [id number] [facility] 2020-03-25 10:30:00 2020-03-25 10:30:00 Outpatient R BARBI JACKSONALDEN [facility] [id number] [facility] 2020-03-19 05:36:11 2020-03-20 11:05:00 Outpatient X ACE L[facility] [id number] [facility] 2020-03-19 05:36:11 2020-03-20 11:05:00 Emergency Osiel Herzogminnie Ace [facility] 1.114 350.1.13.10 4.2.7.2.686 [id number] [facility] 2020-03-19 15:45:00 2020-03-19 15:45:00 Outpatient R BARBI JACKSONALDEN [facility] [id number] [facility] 2020-03-18 00:00:00 2020-03-18 00:00:00 Telephone Froylan Jackson [facility] Building One 1..114 350.1.13.10 4.2.7.2.686 [id number] [facility] 2020-03-12 11:12:37 2020-03-12 11:32:37 Urgent Care Pob1, Acute Care Clinic Desi Lane [facility] Building One 1..114 350.1.13.10 4.2.7.2.686 [id number] [facility] 2020-03-12 11:20:00 2020-03-12 11:20:00 Outpatient R [facility] [id number] [facility] 2020-03-12 00:00:00 2020-03-12 00:00:00 Telephone Aleksandra Mcelroy [facility] Building One 1..840.114 350.1.13.10 4.2.7.2.686 [id number] [facility] 2020-03-12 00:00:00 2020-03-12 00:00:00 [facility]Out[facility] 1..840.114 350.1.13.10 4.2.7.2.686 [id number] [id number] [facility] 2020-03-11 10:49:42 2020-03-11 11:16:45 Urgent Care Pob1, [facility] 1..840.114 350.1.13.10 4.2.7.2.686 [id number] [facility] 2020-03-11 11:00:00 2020-03-11 11:00:00 Outpatient R BRANDO LAKHANI [facility] [id number] [facility] 2020-03-11 00:00:00 2020-03-11 00:00:00 Telephone [place], Acute Care [facility] Office Building One 1..840.114 350.1.13.10 4.2.7.2.686 [id number] [facility] 2019-06-27 15:15:00 2019-06-27 15:15:00 Outpatient [facility] [id number] [facility] 2019-05-30 15:30:00 2019-05-30 15:30:[address] 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 Jazzy Michaels PA to [facility] Nurse 12/21/23 3:16 PM Note I have not seen patient in almost 2 years. Needs to be seen for management/fasting labs. Please call patient and schedule follow up appt with fasting labs. TA Crews RN [facility] 2023-12-21 15:15:40 I have not seen patient in almost 2 years. Needs to be seen for management/fasting labs. 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 METABOLIC PANEL (91329), LIPID PANEL (04397)(TOTAL CHOLESTEROL, TRIGLYCERIDES, HDL), VITAMIN D, 25-OH, THYROID STIMULATING HORMONE stable. Continue lisinopril as directed. Labs to monitor. Recent Visits No visits were found meeting these conditions. Showing recent visits within past 540 days with a meds authorizing provider and meeting all other requirements Future Appointments No visits were found meeting these conditions. Showing future appointments within next 150 days with a meds authorizing provider and meeting all other requirements TA Porras RN [facility]
[2024-09-12] MEDS ORDERED: ASPIRIN 81 MG CHEWABLE TABLET ONE (01:46)
[2024-09-12] MEDS ORDERED: NITROGLYCERIN 0.4 MG/TAB SL ONE (01:46)
[2024-09-12 02:00] LABS: Absolute Basophils 0.1 K/uL (0-0.5); Absolute Eosinophils 0.3 K/uL (0-0.5); Absolute Lymphocytes (CBC) 2.7 K/uL (0.7-4.9); Basophils % 0.6 % (0-1.3); Hematocrit 49.9 % (39.6-49.0); Hemoglobin 16.5 g/dL (13.6-17.9); Lymphocytes % 24.1 % (15.3-44.8); MCH 29.5 pg (27.0-35.0); MCV 89.4 fL (80-100); MPV 7.8 fL (7.6-11.3); Neutrophils % 63.3 % (41.7-73.7); Nucleated Red Blood Cells % 0.2 % (0-0); Platelets 249 thou/uL (152-406); RBC Red Blood Cell Count 5.58 M/uL (4.33-5.43); Red Cell Distribution Width 13.3 % (12.1-15.2)
[2024-09-12 02:02] LABS: PT Prothrombin Time 11.7 SECONDS (9.4-12.5); Protime INR 1.05
[2024-09-12 02:37] LABS: ALT/SGPT 64 U/L (16-61); AST/SGOT 34 U/L (15-37); Albumin 3.5 g/dL (3.4-5.0); Alkaline Phosphatase 71 U/L (45-117); Anion Gap 8.9 mEq/L (5.0-15.0); BUN Blood Urea Nitrogen 14 mg/dL (7-18); Bicarbonate 25 mEq/L (21-32); Bilirubin Direct 0.3 mg/dL (0-0.2); Bilirubin Indirect, Calculated 1.3 mg/dL (0.2-0.8); Bilirubin Total 1.6 mg/dL (0.2-1.0); Globulin 3.5 g/dL (2.3-3.5); Glomerular Filtration Rate 89 ml/min (=/>90); Glucose Level 121 mg/dL (74-106); Potassium 3.9 mEq/L (3.5-5.1); Sodium Level 135 mEq/L (136-145); Troponin High Sensitivity 8.7 pg/mL (<58.9)
[2024-09-12 02:38] LABS: NT PRO-BNP < 5 pg/mL (<125)
--- NOTE | 2024-09-12 04:59 | RAD REPORT ---
EXAM DESCRIPTION: XR CHEST 1 VIEW 09/12/2024 2:15 AM DURABILITY ENGINEER CLINICAL HISTORY: 44 years, Male, Chest pain. COMPARISON: XR Chest 02/26/2023. FINDINGS: 1 view of the chest (AP portable projection) was obtained. No prior films are available at this kuldip e for comparison. There is normal lung volume. Mediastinum: The cardiomediastinal silhouette appears normal in size and shape. Lungs: No areas of consolidations or masses are identified. Heart: The heart is normal in size. Thoracic aorta: The thoracic aorta demonstrate to be normal. Pulmonary vasculature: The pulmonary vasculature is normal in distribution. Pleura: The costophrenic angles demonstrate to be sharp. Osseous structures: The bony structures demonstrate to be within normal limits. Other: External EKG leads within the [id number]-[id number]-udsc limits diagnosis. IMPRESSION: No acute cardiopulmonary disease seen. Electronically signed by: Herber Morocho MD 09/12/2024 02:23 AM DURABILITY ENGINEER Due to temporary technical issues with the PACS/ChangePanda reporting system, reports are being nathan d by the in-house radiologist without review as a courtesy to ensure prompt reporting the interpreting radiologist is fully responsible for the content of the report. Transcribed Date/Time: 09/12/2024 4:59 AM
--- NOTE | 2024-09-12 05:17 | ER ---
Nurse's Notes [facility] Name: Francisco Dean Age: 44 yrs Sex: Male : 1980 Arrival Date: 09/12/2024 Time: 01:00 Bed 20 Private MD: Diagnosis: Chest pain, unspecified;Atypical chest pain Presentation: 09/12 01:23 Chief complaint: Patient states: Chest pain that woke him up at midnight and is cp4 traveling down his left arm. Coronavirus screen: Client denies travel out of the [place] in the last 14 days. At this time, the client does not indicate any symptoms associated with coronavirus-19. Ebola Screen: Patient negative for fever greater than or equal to 101.5 degrees Fahrenheit, and additional compatible Ebola Virus Disease symptoms Patient denies exposure to infectious person. Patient denies travel to an Ebola-affected area in the 21 days before illness onset. No symptoms or risks identified at this time. Initial Sepsis Screen: Does the patient meet any 2 criteria? No. Patient's initial sepsis screen is negative. Does the patient have a suspected source of infection? No. Patient's initial sepsis screen is negative. Risk Assessment: Do you want to hurt yourself or someone else? Patient reports no desire to harm self or others. Onset of symptoms was September 12, 2024. 01:23 Method Of Arrival: Ambulatory 4 01:23 Acuity: WALESKA 3 cp4 Triage Assessment: 01:25 General: Appears in no apparent distress. comfortable, Behavior is calm, cooperative, cp4 appropriate for age. Pain: Complains of pain in chest and left arm Pain radiates to left arm Pain currently is 7 out of 10 on a pain scale. EENT: No signs and/or symptoms were reported regarding the EENT system. Neuro: Level of Consciousness is awake, alert, obeys commands, Oriented to person, place, time, situation. Cardiovascular: Reports chest pain, Patient's skin is warm and dry. Rhythm is sinus rhythm. Respiratory: Airway is patent Respiratory effort is even, unlabored. GI: No signs and/or symptoms were reported involving the gastrointestinal system. : No signs and/or symptoms were reported regarding the genitourinary system. Derm: No signs and/or symptoms reported regarding the dermatologic system. Musculoskeletal: No signs and/or symptoms reported regarding the musculoskeletal system. Historical: - Allergies: 01:25 No Known Allergies; cp4 - Home Meds: 01:25 Metformin Oral [Active]; Glipizide Oral [Active]; Mounjaro subcutaneous [Active]; cp4 - PMHx: 01:25 diabetes mellitus; Hypertensive disorder; knee pain; cp4 - PSHx: 01:25 right knee; cp4 - Immunization history:: Adult Immunizations up to date. - Infectious Disease History:: Denies. - Social history:: Smoking status: Patient denies any tobacco usage or history of. Screenin:30 [facility] ED Fall Risk Assessment (Adult) History of falling in the last 3 months, cp4 including since admission No falls in past 3 months (0 pts) Confusion or Disorientation No (0 pts) Intoxicated or Sedated No (0 pts) Impaired Gait No (0 pts) Mobility Assist Device Used No (0 pt) Altered Elimination No (0 pt) Score/Fall Risk Level 0 - 2 = Low Risk Oriented to surroundings, Maintained a safe environment, Assessed \T\ reinforced patient's understanding of fall precautions, Hourly rounding (assess needs \T\ fall precautionary measures) done. Abuse screen: Denies threats or abuse. Nutritional screening: No deficits noted. Tuberculosis screening: No symptoms or risk factors identified. Assessment: 01:30 Reassessment: No changes from previously documented assessment. Pain: Pain began 1 hour cp4 ago. 02:30 Reassessment: Patient appears in no apparent distress at this time. Patient and/or cp4 family updated on plan of care and expected duration. Pain level reassessed. Patient is alert, oriented x 3, equal unlabored respirations, skin warm/dry/pink. 03:30 Reassessment: Patient appears in no apparent distress at this time. Patient and/or cp4 family updated on plan of care and expected duration. Pain level reassessed. Patient is alert, oriented x 3, equal unlabored respirations, skin warm/dry/pink. 04:30 Reassessment: Patient appears in no apparent distress at this time. Patient and/or cp4 family updated on plan of care and expected duration. Pain level reassessed. Patient is alert, oriented x 3, equal unlabored respirations, skin warm/dry/pink. 05:30 Reassessment: Patient appears in no apparent distress at this time. Patient and/or cp4 family updated on plan of care and expected duration. Pain level reassessed. Patient is alert, oriented x 3, equal unlabored respirations, skin warm/dry/pink. Vital Signs: 01:23 BP 138 / 90; Pulse 73; Resp 18; Temp 98.2; Pulse Ox 98% ; Weight 172.82 kg; Height 6 cp4 ft. 0 in. ; Pain 7/10; 01:42 BP 134 / 90 RA; Pulse 74; Resp 18; Pulse Ox 99% ; cp4 02:16 BP 138 / 67; Pulse 80; Resp 18; Pulse Ox 99% ; cp4 03:00 BP 145 / 71; Pulse 63; Resp 18; Pulse Ox 94% ; cp4 04:00 BP 127 / 82; Pulse 56; Resp 18; Pulse Ox 98% ; cp4 05:00 BP 145 / 77; Pulse 65; Resp 18; Pulse Ox 96% ; cp4 06:00 BP 139 / 86; Pulse 61; Resp 18; Pulse Ox 99% ; cp4 01:23 Body Mass Index 51.67 (172.82 kg, 182.88 cm) cp4 01:23 Pain Scale: Adult cp4 [place] Coma Score: 05:16 Eye Response: spontaneous(4). Motor Response: obeys commands(6). Verbal Response: sp4 oriented(5). Total: 15. ED Course: 01:09 Patient arrived in ED. vc1 01:10 Merlin Sales PA is PHCP. cp 01:10 Serge Ndiaye MD is Attending Physician. cp 01:23 Jie Reyez is Primary Nurse. cp4 01:25 Triage completed. cp4 01:25 Arm band placed on right wrist. Patient placed in waiting room. cp4 01:30 Bed in low position. Call light in reach. Side rails up X 1. Provided Education on: cp4 chest pain. Client placed on continuous cardiac and pulse oximetry monitoring. NIBP monitoring applied. monitoring manager on. Pulse ox on. NIBP on. 01:30 No provider procedures requiring assistance completed. Patient maintains SpO2 cp4 saturation greater than 95% on room air. 01:43 Initial lab(s) drawn, by me, sent to lab. EKG done, by ED staff, reviewed by Merlin SALGADO. Inserted saline lock: 20 gauge in right antecubital area, using aseptic technique. Blood collected. Flushed with 10 mL NS. 01:48 XRAY Chest (1 view) In Process Unspecified. EDMS 05:15 Del Muñoz MD is Hospitalizing Provider. sp4 06:05 Erwin Cheek MD is Referral Physician. sp4 06:10 intact, bleeding controlled, No redness/swelling at site. Pressure dressing applied. cp4 Administered Medications: 01:51 Drug: Nitroglycerin Sublingual 0.4 mg Sublingual once Route: Sublingual; cp4 04:06 Follow up: Response: No adverse reaction; Blood pressure is lowered cp4 01:51 Drug: Aspirin PO Chewable Tablet 324 mg PO once; 81 mg tablets x 4 {Note: Patient took cp4 81 mg at 0030.} Route: PO; 04:06 Follow up: Response: No adverse reaction cp4 Medication: 01:30 VIS not applicable for this client. cp4 Outcome: 05:16 Decision to Hospitalize by Provider. sp4 06:05 Discharge ordered by . sp4 06:10 Discharged to home ambulatory, cp4 06:10 Condition: stable 06:10 Discharge instructions given to patient, family, Instructed on discharge instructions, follow up and referral plans. Demonstrated understanding of instructions, follow-up care, 06:11 Patient left the ED. cp4 Signatures: Dispatcher [employer] EDHI Merlin Sales PA PA cp Calcote, Vanessa, RN RN vc1 Serge Ndiaye MD MD sp4 Jie Reyez cp4 Corrections: (The following items were deleted from the chart) 01:28 01:25 PMHx: L3; cp4 cp4 01:28 01:25 PMHx: L3; cp4 cp4 01:51 01:50 Aspirin PO Chewable Tablet 243 mg PO cp4 cp4
--- NOTE | 2024-09-12 05:17 | EDPHYS ---
Physician Documentation [facility] Name: Francisco Dean Age: 44 yrs Sex: Male : 1980 Arrival Date: 09/12/2024 Time: 01:00 Bed 20 Private MD: ED Physician Serge Ndiaye HPI: 09/12 01:32 This 44 yrs old Male presents to ER via Ambulatory with complaints of Chest cp Pain, Arm Pain, Headache. 01:33 Patient is a 44-year-old male with past medical history significant for diabetes and cp hypertension who presents to the emergency department with complaints of left arm pain and tingling that started this evening and awoke him from his sleep. Patient reports he did not observe to some left-sided chest pain that he describes as if someone punched him. Patient reports he has had pain in that left arm before but it occurs while he sleeps and when he changes position it usually goes away but tonight's pain has persisted and so he became concerned and also because of the chest pain. Historical: - Allergies: 01:25 No Known Allergies; cp4 - Home Meds: 01:25 Metformin Oral [Active]; Glipizide Oral [Active]; Mounjaro subcutaneous [Active]; cp4 - PMHx: 01:25 diabetes mellitus; Hypertensive disorder; knee pain; cp4 - PSHx: 01:25 right knee; cp4 - Immunization history:: Adult Immunizations up to date. - Infectious Disease History:: Denies. - Social history:: Smoking status: Patient denies any tobacco usage or history of. ROS: 01:35 Constitutional: Negative for body aches, chills, fever, poor PO intake, cp 01:35 Cardiovascular: Positive for chest pain, Negative for edema, palpitations, cp 01:35 Respiratory: Negative for cough, shortness of breath, wheezing, 01:35 Abdomen/GI: Negative for abdominal pain, nausea, vomiting, and diarrhea, 01:35 Neuro: Positive for headache, 01:35 Eyes: Negative for injury, pain, redness, and discharge, cp 01:35 All other systems are negative, cp Exam: 01:40 Head/Face: Normocephalic, atraumatic. cp 01:40 Constitutional: The patient appears in no acute distress, alert, awake, non-diaphoretic, non-toxic, well developed, well nourished, obese, 01:40 Eyes: Periorbital structures: appear normal, Conjunctiva: normal, no exudate, no injection, Sclera: no appreciated abnormality, Lids and lashes: appear normal, bilaterally, 01:40 ENT: External ear(s): are unremarkable, Nose: is normal, Mouth: Lips: moist, Oral mucosa: moist, Posterior pharynx: Airway: no evidence of obstruction, patent, :40 Neck: ROM/movement: is normal, is supple, without pain, no range of motions limitations, 01:40 Chest/axilla: Inspection: normal, :40 Cardiovascular: Rate: normal, Rhythm: regular, Edema: is not appreciated, JVD: is not appreciated, :40 Respiratory: the patient does not display signs of respiratory distress, Respirations: cp normal, no use of accessory muscles, no retractions, labored breathing, is not present, Breath sounds: are clear throughout, no decreased breath sounds, no stridor, no wheezing, :40 Abdomen/GI: Inspection: abdomen appears normal, Palpation: abdomen is soft and non-tender, in all quadrants, :40 Neuro: Orientation: to person, place \T\ time. Mentation: is normal, Motor: moves all fours, strength is normal, Sensation: no obvious gross deficits, :45 ECG was reviewed by the Attending Physician. cp 05:16 Constitutional: This is a well developed, well nourished patient who is awake, alert, sp4 and in no acute distress. Head/Face: Normocephalic, atraumatic. Eyes: Pupils equal round and reactive to light, extra-ocular motions intact. Lids and lashes normal. Conjunctiva and sclera are not injected. Cornea within normal limits. Periorbital areas with no swelling, redness, or edema. ENT: Nares patent. No nasal discharge, no septal abnormalities noted. Tympanic membranes are normal and external auditory canals are clear. Oropharynx with no redness, swelling, or masses, exudates, or evidence of obstruction, uvula midline. Mucous membranes moist. Neck: Trachea midline, no thyromegaly or masses palpated, and no cervical lymphadenopathy. Supple, full range of motion without nuchal rigidity, or vertebral point tenderness. Chest/axilla: Normal chest wall appearance and motion. Nontender with no deformity. No lesions are appreciated. Cardiovascular: Regular rate and rhythm with a normal S1 and S2. No gallops, murmurs, or rubs. Normal PMI, no JVD. No pulse deficits. Respiratory: Lungs have equal breath sounds bilaterally, clear to auscultation and percussion. No rales, rhonchi or wheezes noted. No increased work of breathing, no retractions or nasal flaring. Abdomen/GI: Soft, with normal bowel sounds. No distension or tympany. No guarding or rebound. No evidence of tenderness throughout. Back: No spinal tenderness. No costovertebral tenderness. Skin: Warm, dry with normal turgor. Normal color with no rashes, no lesions, and no evidence of cellulitis. MS/ Extremity: Pulses equal, no cyanosis. Neurovascular intact. Full, normal range of motion. Neuro: Awake and alert, GCS 15, oriented to person, place, time, and situation. Cranial nerves II-XII grossly intact. Motor strength 5/5 in all extremities. Sensory grossly intact. Psych: Awake, alert, with orientation to person, place and time. Behavior, mood, and affect are within normal limits Vital Signs: 01:23 BP 138 / 90; Pulse 73; Resp 18; Temp 98.2; Pulse Ox 98% ; Weight 172.82 kg; Height 6 cp4 ft. 0 in. ; Pain 7/10; 01:42 BP 134 / 90 RA; Pulse 74; Resp 18; Pulse Ox 99% ; cp4 02:16 BP 138 / 67; Pulse 80; Resp 18; Pulse Ox 99% ; cp4 03:00 BP 145 / 71; Pulse 63; Resp 18; Pulse Ox 94% ; cp4 04:00 BP 127 / 82; Pulse 56; Resp 18; Pulse Ox 98% ; cp4 05:00 BP 145 / 77; Pulse 65; Resp 18; Pulse Ox 96% ; cp4 06:00 BP 139 / 86; Pulse 61; Resp 18; Pulse Ox 99% ; cp4 01:23 Body Mass Index 51.67 (172.82 kg, 182.88 cm) cp4 01:23 Pain Scale: Adult cp4 [place] Coma Score: 05:16 Eye Response: spontaneous(4). Motor Response: obeys commands(6). Verbal Response: sp4 oriented(5). Total: 15. MDM: 01:10 Medical Screening Exam initiated cp 03:05 Differential diagnosis: acute pericarditis, anxiety, esophagitis, gastritis. HEART sp4 Score: History: Moderately Suspicious (1), ECG: Normal (0), Age: < or = 45 years (0), Risk Factors: 1 or 2 risk factors (1), Troponin: < or = 1 x Normal Limit (0), Total Score = 2. ED course: EXAM DESCRIPTION: XR CHEST 1 VIEW 09/12/2024 2:15 AM [employer] CLINICAL HISTORY: 44 years, Male, Chest pain. COMPARISON: XR Chest 02/26/2023. FINDINGS: 1 view of the chest (AP portable projection) was obtained. No prior films are available at this time for comparison. There is normal lung volume. Mediastinum: The cardiomediastinal silhouette appears normal in size and shape. Lungs: No areas of consolidations or masses are identified. Heart: The heart is normal in size. Thoracic aorta: The thoracic aorta demonstrate to be normal. Pulmonary vasculature: The pulmonary vasculature is normal in distribution. Pleura: The costophrenic angles demonstrate to be sharp. Osseous structures: The bony structures demonstrate to be within normal limits. Other: External EKG leads within the [id number] limits diagnosis. IMPRESSION: No acute cardiopulmonary disease seen. Electronically signed by: Herber Morocho MD 09/12/2024 02:23 AM. 05:17 The patient was given aspirin in the Emergency Department. Data reviewed: vital signs, sp4 nurses notes, lab test result(s), EKG, radiologic studies, plain films. 06:06 ED course: Patient decided against admission and opted for discharge. Will recommend sp4 visit with Manager Asset . 09/12 01:32 Order name: Basic Metabolic Panel; Complete Time: 03:45 cp 09/12 01:32 Order name: CBC with Diff; Complete Time: 03:45 cp 09/12 01:32 Order name: LFT's; Complete Time: 03:45 cp 09/12 01:32 Order name: Magnesium; Complete Time: 03:45 cp 09/12 01:32 Order name: NT PRO-BNP; Complete Time: 03:45 cp 09/12 01:32 Order name: PT-INR; Complete Time: 03:45 cp 09/12 01:32 Order name: Troponin HS; Complete Time: 03:45 cp 09/12 05:47 Order name: Troponin High Sensitivity EDCT 09/12 06:01 Order name: CBC with Automated Diff EDCT 09/12 06:01 Order name: Comprehensive Metabolic Panel EDCT 09/12 06:01 Order name: Creatine Phosphokinase EDCT 09/12 06:01 Order name: Lipid Profile EDCT 09/12 01:32 Order name: XRAY Chest (1 view); Complete Time: 05:01 cp 09/12 06:01 Order name: CONS Physician Consult EDCT 09/12 01:32 Order name: Blood Pressure Recheck: bilateral upper extremity; Complete Time: 01:42 cp 09/12 01:32 Order name: Cardiac monitoring; Complete Time: 01:32 cp 09/12 01:32 Order name: EKG - Nurse/Tech; Complete Time: 01:32 cp 09/12 01:32 Order name: IV Saline Lock; Complete Time: 01:42 cp 09/12 01:32 Order name: Labs collected and sent; Complete Time: 01:42 cp 09/12 01:32 Order name: O2 Per Protocol; Complete Time: 01:32 cp 09/12 01:32 Order name: O2 Sat Monitoring; Complete Time: 01:32 cp EC:45 Rate is 72 beats/min. Rhythm is regular. WI interval is normal. QRS interval is cp prolonged at 108 msec. QT interval is normal. T waves are Inverted in lead aVR. Interpreted by me. Reviewed by me. Administered Medications: 01:51 Drug: Nitroglycerin Sublingual 0.4 mg Sublingual once Route: Sublingual; cp4 04:06 Follow up: Response: No adverse reaction; Blood pressure is lowered cp4 01:51 Drug: Aspirin PO Chewable Tablet 324 mg PO once; 81 mg tablets x 4 {Note: Patient took cp4 81 mg at 0030.} Route: PO; 04:06 Follow up: Response: No adverse reaction cp4 Disposition: 05:13 Co-signature as Attending Physician, Serge Ndiaye MD I agree with the assessment sp4 and plan of care. I reviewed the patient's care provided by Advanced Practice Provider \T\ agree w/ the diagnosis \T\ care plan. I personally saw the pt \T\ performed a substantive portion of the visit, incldng all aspects of the (History/Exam/Medical Decision Making). 05:17 Chart complete. sp4 Disposition Summary: 09/12/24 06:05 Discharge Ordered Notes: Please schedule visit with Manager Asset in the next 1 to 2 weeks Location: Home( 4 06:05) sp4 Problem: new(09/12/24 06:05) sp4 Symptoms: have improved(09/12/24 06:05) sp4 Condition: Stable(09/12/24 06:05) sp4 Diagnosis - Chest pain, unspecified sp4 - Atypical chest pain sp4 Followup: sp4 - With: Erwin Cheek MD - When: 7 - 10 days - Reason: Recheck today's complaints Discharge Instructions: - Discharge Summary Sheet sp4 - Nonspecific Chest Pain, Adult, [id number] sp4 Forms: - Patient Portal Instructions sp4 Signatures: Dispatcher [employer] EDMS Merlin Sales PA PA cp Potepalov, Sergey, MD MD sp4 Jie Reyez cp4 Corrections: (The following items were deleted from the chart) 01:28 01:25 PMHx: L3; cp4 cp4 01:28 01:25 PMHx: L3; cp4 cp4 01:32 01:32 BASIC METABOLIC PANEL+C.LAB.BRZ ordered. EDMS EDMS 01:32 01:32 CBC+H.LAB.BRZ ordered. EDMS EDMS 01:32 01:32 HEPATIC FUNCTION+C.LAB.BRZ ordered. EDMS EDMS 01:32 01:32 MAGNESIUM+C.LAB.BRZ ordered. EDMS EDMS 01:32 01:32 PROBNP+C.LAB.BRZ ordered. EDMS EDMS 01:32 01:32 PROTIME (+INR)+COAG.LAB.BRZ ordered. EDMS EDMS 01:32 01:32 Troponin High Sensitivity+C.LAB.BRZ ordered. EDMS EDMS 01:32 01:32 Chest Single View+RAD.RAD.BRZ ordered. EDMS EDMS 05:53 05:45 Troponin High Sensitivity+C.LAB.BRZ ordered. EDMS EDMS 06:04 05:16 Observation sp4 sp4 06:04 05:16 Del Muñoz sp4 sp4 06:04 05:16 Telemetry/MedSurg (observation) sp4 sp4 06:04 05:16 Stable sp4 sp4 06:04 05:16 new sp4 sp4 06:04 05:16 have improved sp4 sp4 06:04 05:16 Standard sp4 sp4 06:04 05:16 sp4 sp4 06:04 05:16 Unstable angina sp4 sp4 17:38 09/11 01:40 Constitutional: The patient appears in no acute distress, alert, awake, cp non-diaphoretic, non-toxic, well developed, well nourished, obese, cp 09/12 17:09/11 01:40 Head/Face: Normocephalic, atraumatic. cp cp 09/12 17:09/11 01:40 Eyes: Periorbital structures: appear normal, Conjunctiva: normal, no cp exudate, no injection, Sclera: no appreciated abnormality, Lids and lashes: appear normal, bilaterally, cp 09/12 17:38 09/11 01:40 ENT: External ear(s): are unremarkable, Nose: is normal, Mouth: Lips: cp moist, Oral mucosa: moist, Posterior pharynx: Airway: no evidence of obstruction, patent, cp 09/12 17:38 09/11 01:40 Neck: ROM/movement: is normal, is supple, without pain, no range of motions cp limitations, cp 09/12 17:09/11 01:40 Chest/axilla: Inspection: normal, cp cp 09/12 17:38 09/11 01:40 Cardiovascular: Rate: normal, Rhythm: regular, Edema: is not appreciated, cp JVD: is not appreciated, cp
--- NOTE | 2024-09-12 05:39 | P.HP ---
Certification for Inpatient Patient admitted to: Observation With expected LOS: <2 Midnights Practitioner: I am a practitioner with admitting privileges, knowledge of patient current condition, hospital course, and medical plan of care. Services: Services provided to patient in accordance with Admission requirements found in Title 42 Section 412.3 of the Code of Federal Regulations Patient History Date of Service: 09/12/24 Reason for admission: Chest Pain History of Present Illness: 44 yrs old Male with past medical history of hypertension, hyperlipidemia, obesity, diabetes came to ER with chest discomfort. Patient started having left arm pain and tingling that started in the evening and awoke him from his sleep. Patient reports some left-sided chest pain that he describes as if someone punched him. Patient reports he has had pain in that left arm before but it occurs while he sleeps and when he changes position it usually goes away but tonight's pain has persisted and so he became concerned and also because of the chest pain. Patient denies neck pain. Denies any nausea vomiting or diarrhea. No sick contacts. 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 - Family History Mother -: Diabetes Sister -: Diabetes - Social History Smoking Status: Current some day smoker Alcohol use: Yes CD- Drugs: No Caffeine use: Yes Review of Systems 10-point ROS is otherwise unremarkable Physical Examination - Vital Signs Temperature: 97.8 F Blood Pressure: 148/82 Pulse: 76 Respirations: 18 Pulse Ox (%): 94 - Physical Exam General: Alert, Oriented x3, Obese HEENT: Atraumatic, Normocephalic Neck: Supple, JVD not distended Respiratory: Clear to auscultation bilaterally, Normal air movement Cardiovascular: Regular rate/rhythm, Normal S1 S2 Capillary refill: <2 Seconds Gastrointestinal: Soft and benign, W/out hepatosplenomegaly Musculoskeletal: No clubbing, No swelling Integumentary: No rashes, No breakdown Neurological: Normal gait, Normal speech, Normal strength at 5/5 x4 extr, Cranial nerves 3-12 intact Lymphatics: No axilla or inguinal lymphadenopathy - Studies Laboratory Data (last 24 hrs) 09/12/24 09/12/24 09/12/24 01:40 01:40 01:40 WBC 11.10 H Hgb 16.5 Hct 49.9 H Plt Count 249 PT 11.7 INR 1.05 Sodium 135 L Potassium 3.9 BUN 14 Creatinine 1.07 Glucose 121 H Magnesium 2.0 Total Bilirubin 1.6 H AST 34 ALT 64 H Alkaline Phosphatase 71 Assessment and Plan - Plan Chest pain to rule out ACS Will trend cardiac enzymes Will monitor telemetry Started on aspirin and statin EKG did not show any acute changes suggestive of ischemia Patient denies any chest pain Will get an echocardiogram Cardiology consult Hypertension Antihypertensives titrated Continue home medications and titrate as needed Hyperlipidemia Continue statin Diabetes Insulin sliding scale Accu-Chek before every meal and at bedtime Obesity Advise lifestyle modification Nicotine usage Advised cessation GI/DVT prophylaxis Advanced directive full code Discharge Plan: Home Plan to discharge in: 24 Hours - Advance Directives Does patient have a Living Will: No Does patient have a Durable POA for Healthcare: No - Code Status/Comfort Care Code Status: Full Code Time Spent Managing Pts Care (In Minutes): 48
[2024-09-12 05:51] VITALS: TEMP 97.8
[2024-09-12] MEDS ORDERED: ONDANSETRON 4 MG/2 ML VIAL IV PRN (05:57)
[2024-09-12] MEDS ORDERED: ACETAMINOPHEN 325 MG TABLET PO PRN (05:57)
[2024-09-12] MEDS ORDERED: D10W 125 ML IV PRN (06:00)
[2024-09-12] MEDS ORDERED: GLUCAGON 1 MG/VIAL IM PRN (06:00)
[2024-09-12] MEDS ORDERED: ASPIRIN EC 81 MG TAB PO SCH (06:00)
[2024-09-12 06:22] VITALS: BP 139/86; O2SAT 99
[2024-09-12] MEDS ORDERED: INSULIN REGULAR (HUMAN) 100 UNIT/ML SQ SCH (07:30)
[2024-09-12] MEDS ORDERED: ENOXAPARIN 40 MG/0.4 ML SQ SCH (09:00)
--- NOTE | 2024-09-12 12:16 | EKG ---
Test Date: 2024-09-12 Test Time: 01:18:53 Nurse Practical: AMPARO MEASUREMENT RESULTS: Intervals: Rate: 72 OK: 150 QRSD: 108 QT: 366 QTc: 400 Startex: P: 12 OK: 150 QRS: 34 T: 28 INTERPRETIVE STATEMENTS: Normal sinus rhythm Normal ECG Compared to ECG 02/26/2023 08:33:56 No significant changes Electronically Signed On 09-12-24 12:15:38 SELLING UNDERWRITER by Maxi Mcneal
[2024-09-12] MEDS ORDERED: ATORVASTATIN 40 MG TAB PO SCH (21:00)
== END 2024-09-12 06:11 | disposition home or self-care (01) ==
LOC: ER 01:00
DX: R07.89 Other chest pain (principal); E11.9 Type 2 diabetes mellitus without complications; I10 Essential (primary) hypertension; E78.5 Hyperlipidemia, unspecified; E66.9 Obesity, unspecified; F17.210 Nicotine dependence, cigarettes, uncomplicated
CPT/HCPCS: 36415; 71045; 80048; 80076; 83735; 83880; 84484; 85025; 85610; 93005

== ENCOUNTER 2024-11-02 09:54 | Emergency (ER) | payer OTHER ==
--- OUTSIDE RECORDS SUMMARY | 2024-11-02 09:58 | XMS REPORT | Continuity of Care Document ---
Author Name Unknown Address [address] [facility]. [address] [place] [address] [facility] thconnect Address [address] [facility] [place] [address] Care Team Providers Care Telegraph Office Telephone Clerk Name Role Phone Samantha Michele MD Primary Care Physician Jazzy Solis Attending Clinician + [phone] SAMANTHA MICHELE Attending Clinician Laury Contreras Attending Clinician [phone] LAURY MAHONEY Attending Clinician Unavailcarisa lopes Unknown, Attending Attending Clinician Unavailab le Doctor Unassigned, Malin Attending Clinician U navailable JAZZY MICHAELS Attending Clinician Unavailable Therapy, [facility] Attending Clinician Unavailable Merrill Sebastian MD Attending Clinician + [phone] MERRILL SEBASTIAN Attending Clinician Unavailable EbrahiMonie Gonzalez Attending Clinician + [phone] MONIE TAVERAS Attending Clinician Unavailable Only, Ang Db Test Attending Clinician UnavailElise Tolentino LVN Attending Clinician Unavai lable Lab, Ang - Db Attending Clinician Unavailable Renetta FOSTER, Froylan Sullivan Attending Clinician + [phone] FROYLAN JACKSON Attending Clinician Samantha Beckford MD Attending Clinician +[phone] GIOVANNA HU Attending Clinician UnavailChalo Jimenez MDil K.HGolden Attending Clinician + [phone], [facility] Lab Attending Clinician Unavailable DANYELL ALDRICH Attending Clinician Unavailable Kaye Lee MD Attending Clinician +[phone] KAYE LEE Attending Clinician UnavailDanyell Kruse S Attending Clinician [phone] Juanito Cunha DO Attending Clinician [phone] Osiel Herzog MD Attending Clinician [phone] Belem Conn DO Attending Clinician [phone] Provider, [facility] Attending Clinician Un available Brando Fish Attending Clinician [phone] ACE LORENZO Attending Clinician Unavailable Ace Lorenzo MD Attending Clinician [phone] Pob[facility], Acute Care Clinic Attending Clinician Unav Desi Joseph MD Attending Clinician Aleksandra Mcelroy MD Attending Clinician +[phone] BRANDO LAKHANI Attending Clinician Unavailable KAYE LEE Admitting Clinician UnavailACE Humphries Admitting Clinician Unavailable Ace Lorenzo MD Admitting Clinician [phone] Payers Payer Name Policy Type Policy Number Effective Date Expirati on Date Source [facility] [id number] 2017 00:00:00 Problems Condition Name Condition Details Condition Category Status Onset Date Resolution Date Last Treatment Date Treating Clinician Comments Source Vitamin D deficiency Vitamin D deficiency Disease Active 03-23 00:00: 00 [facility] Elevated LFTs Elevated LFTs Disease Active 03-23 00:00: 00 [facility] Elevated bilirubin Elevated bilirubin Disease Active 03-23 00:00: 00 General acute hospital TIA (transient ischemic attack) TIA (transient ischemic attack) Disease Active 9-07 00:00: 00 General acute hospital Hypertrigl yceridemia Hypertrigl yceridemia Disease Active 2019-11 0-25 00:00: 00 General acute hospital Essential hypertensi on Essential hypertensi on Disease Active 03-25 00:00: 00 General acute hospital History of diverticul itis History of diverticul itis Disease Active 03-25 00:00: 00 General acute hospital Diabetes mellitus type 2 in obese Diabetes mellitus type 2 in obese Disease Active 03-25 00:00: 00 General acute hospital Fatty liver Fatty liver Disease Active 03-25 00:00: 00 General acute hospital Hepatosple nomegaly Hepatosple nomegaly Disease Active 03-25 00:00: 00 General acute hospital Morbid obesity Morbid obesity Disease Active 03-25 00:00: 00 General acute hospital Body mass index (BMI) of 50-59.9 in adult Body mass index (BMI) of 50-59.[address] [facility] PTSD (post-trau matic stress disorder) PTSD (post-trau matic stress disorder) Diagnosis Active [facility] Obstructiv e sleep apnea syndrome Obstructiv e sleep apnea syndrome Diagnosis Active [facility] Allergies, Adverse Reactions, Alerts Allergy Name Allergy Type Status Severity Reaction(s) Onset Date Inactive Date Treating Clinician Comments Source NO KNOWN ALLERGIE S Drug Class Active General acute hospital Social History Social Habit Start Date Stop Date Quantity Comments Source History of tobacco use Smokes tobacco daily [facility] Exposure to SARS-CoV-2 (event) 2022-09-10 00:00:00 2022-09-20 09:47:00 Not sure [facility] Alcohol intake 2022-09-20 00:00:00 2022-09-20 00:00:00 Current drinker of alcohol (finding) [facility] Tobacco use and exposure 2022-05-20 00:00:00 2022-05-20 00:00:00 Smokeless tobacco non-user [facility] Tobacco Comment 2022-05-20 00:00:00 2022-05-20 00:00:00 Vapes everyday [facility] History of Social function 2021-12-08 00:00:00 2021-12-08 00:00:00 [facility] History SDOH Alcohol Frequency 2020-08-22 00:00:00 2020-08-22 00:00:00 99 [facility] History SDOH Alcohol Std Drinks 2020-08-22 00:00:00 2020-08-22 00:00:00 99 [facility] History SDOH Alcohol Binge 2020-08-22 00:00:00 2020-08-22 00:00:00 99 [facility] Alcohol Comment 2020-08-22 00:00:00 2020-08-22 00:00:00 rare [facility] Sex Assigned At 1980 00:00:00 1980 00:00:00 [facility] Smoking Status Start Date Stop Date Source Smokes tobacco daily 2022-05-20 00:00:00 [facility] Medications Ordered Medication Name Filled Medication Name Start Date Stop Date Current Medication? Ordering Clinician Indication Dosage Frequency Signature (SIG) Comments Components Source ROSUVASTATI N 5 mg tablet 01-29 00:00: 00 Yes [id number] TAKE 1 TABLET BY MOUTH EVERYDAY AT BEDTIME General acute hospital METFORMIN ER 750 mg 24 hr tablet 12-29 00:00: 00 Yes [id number] TAKE 1 TABLET BY MOUTH TWICE A DAY WITH MEALS General acute hospital LISINOPRIL 5 mg tablet 12-29 00:00: 00 Yes [id number] TAKE 1 TABLET BY MOUTH EVERY DAY General acute hospital ROSUVASTATI N 5 mg tablet 12-29 00:00: 00 01-29 00:00 :00 No [id number] TAKE 1 TABLET BY MOUTH EVERYDAY AT BEDTIME General acute hospital clotrimazol e 1 % ointment 2021-11 00:00: 00 09-28 05:59 :00 No [id number] 1{dose} Apply 1 Dose to area(s) 2 (two) times daily for 7 days. General acute hospital Blood-Gluco se Transmitter (DEXCOM G6 TRANSMITTER ) Abi 04-19 00:00: 00 Yes [id number] Use as directed for glucose monitoring General acute hospital Blood-Gluco se Meter,Jayy nuous (DEXCOM G6 SQL REPORT DEVELOPER) Misc 04-19 00:00: 00 Yes [id number] Use as directed for glucose monitoring General acute hospital Blood-Gluco se Sensor (DEXCOM G6 SENSOR) Abi 04-19 00:00: 00 Yes [id number] Use as directed for glucose monitoring for DM type 2 General acute hospital ergocalcife rol, vitamin d2, (VITAMIN D2) 1,250 mcg (50,000 unit) capsule 03-23 00:00: 00 Yes [id number] 10382Z Take 1 capsule by mouth weekly. General acute hospital SITagliptin (JANUVIA) 100 mg tablet 03-20 00:00: 00 Yes [id number] 100mg Take 1 tablet by mouth daily. General acute hospital lisinopriL 5 mg tablet 03-20 00:00: 00 12-29 00:00 :00 No [id number] 5mg Take 1 tablet by mouth daily. General acute hospital metformin ER 750 mg 24 hr tablet 03-20 00:00: 00 12-29 00:00 :00 No [id number] 750mg Take 1 tablet by mouth 2 (two) times daily with meals. General acute hospital rosuvastati n 5 mg tablet 03-20 00:00: 00 12-29 00:00 :00 No [id number] 5mg Take 1 tablet by mouth at bedtime. [facility] acute hospital lisdexamfet amine (VYVANSE) 30 mg capsule 1- 00:00: 00 Yes [id number] 30mg Take 1 capsule by mouth every morning. General acute hospital fluocinonid e 0.05 % cream 06-16 00:00: 00 Yes [id number] Apply to area(s) 2 (two) times daily. General acute hospital mupirocin 2 % ointment 07-09 00:00: 00 07-15 00:00 :00 No [id number] Apply to area(s) 3 (three) times daily. General acute hospital hydrOXYzine 25 mg tablet 9- 00:00: 00 07-15 00:00 :00 No [id number] 25mg Take 1 tablet by mouth every 6 (six) hours as needed for Itching. General acute hospital MELOXICAM 15 mg tablet 8-10 00:00: 00 07-15 00:00 :00 No [id number] 15mg TAKE 1 TABLET BY MOUTH ONCE DAILY NEEDED FOR PAIN OR INFLAMMATI ON. TAKE WITH FOOD. General acute hospital triamcinolo ne acetonide 0.1 % ointment -16 00:00: 00 08-22 00:00 :00 No [id number] Apply to area(s) 2 (two) times daily. General acute hospital lisinopril 5 mg tablet 04-04 00:00: 00 11-13 00:00 :00 No [id number] 5mg Take 1 tablet by mouth daily. General acute hospital Blood-Gluco se Meter Kit 03-26 00:00: 00 07-15 00:00 :00 No [id number] Check glucose once daily before breakfast; Diagnosis code E11.9 General acute hospital blood sugar diagnostic (BLOOD GLUCOSE TEST) strip 03-26 00:00: 00 07-15 00:00 :00 No [id number] Check glucose once daily before breakfast; Diagnosis code E11.9 General acute hospital Lancets Misc 03-26 00:00: 00 07-15 00:00 :00 No [id number] Check glucose once daily before breakfast; Diagnosis code E11.9 General acute hospital econazole nitrate 1 % cream 03-26 00:00: 00 07-15 00:00 :00 No [id number] Apply to feet BID until the fungal infection has resolved General acute hospital metformin ER 500 mg 24 hr tablet 03-26 00:00: 09-01 00:00 :00 No [id number] 500mg Take 1 tablet by mouth daily with breakfast. General acute hospital traMADol (ULTRAM) 50 mg tablet 03-19 00:00: 00 07-15 00:00 :00 No [id number] 50mg Take 1 tablet by mouth every 6 (six) hours as needed for Pain (scale 7-10). General acute hospital dicyclomine 20 mg tablet 03-19 00:00: 08-22 00:00 :00 No [id number] 20mg Take 1 tablet by mouth every 6 (six) hours as needed for Abdominal pain. General acute hospital BusPIRone HCl BusPIRone HCl 05-30 00:00: 00 Yes Brian Ja [address] [facility] HydrOXYzine HCl HydrOXYzine HCl 05-30 00:00: 00 Yes Brian Ja [address] [facility] Trazodone HCl Trazodone HCl 05-30 00:00: 00 Yes Brian Ja 1 tablet at bedtime as needed [facility] Immunizations Ordered Immunization Name Filled Immunization Name Date Status Comments Source VALENTINAELOVIMAB 2022-05-21 00:00:00 Completed [facility] BEBTELOVIMAB 2022-05-21 00:00:00 Completed [facility] BEBTELOVIMAB 2022-05-21 00:00:00 Completed [facility] BEBTELOVIMAB 2022-05-21 00:00:00 Completed [facility] BEBTELOVIMAB 2022-05-21 00:00:00 Completed [facility] BEBTELOVIMAB 2022-05-21 00:00:00 Completed [facility] BEBTELOVIMAB 2022-05-21 00:00:00 Completed [facility] BEBTELOVIMAB 2022-05-21 00:00:00 Completed [facility] BEBTELOVIMAB 2022-05-21 00:00:00 Completed [facility] BEBTELOVIMAB 2022-05-21 00:00:00 Completed [facility] BEBTELOVIMAB Unknown Completed General acute hospital Vital Signs Vital Name Observation Time Observation Value Comments S jarad Systolic blood pressure 2022-09-20 15:50:00 168 mm[Hg] [facility] Diastolic blood pressure 2022-09-20 15:50:00 105 mm[Hg] [facility] Heart rate 2022-09-20 15:50:00 74 /min [facility] Body temperature 2022-09-20 15:50:00 36.67 Sabrina [facility] Respiratory rate 2022-09-20 15:50:00 16 /min [facility] Body height 2022-09-20 15:50:[address] [facility] Body weight 2022-09-20 15:50:[address] [facility] BMI 2022-09-20 15:50:00 50.86 kg/m2 [facility] Oxygen saturation in Arterial blood by Pulse oximetry 2022-09-20 15:50:00 97 /min [facility] Systolic blood pressure 2022-05-21 22:15:00 129 mm[Hg] [facility] Diastolic blood pressure 2022-05-21 22:15:00 83 mm[Hg] [facility] Heart rate 2022-05-21 22:15:00 76 /min [facility] Body temperature 2022-05-21 22:15:00 36.61 Sabrina [facility] Respiratory rate 2022-05-21 22:15:00 20 /min [facility] Oxygen saturation in Arterial blood by Pulse oximetry 2022-05-21 22:15:00 95 /min [facility] Body height 2022-05-21 21:15:[address] [facility] Body weight 2022-05-21 21:15:[address] [facility] BMI 2022-05-21 21:15:00 50.86 kg/m2 [facility] Procedures Procedure Date / Time Performed Performing Clinicia n Source ASSIGNMENT OF BENEFITS 2022-09-20 15:48:47 Docto r Unassigned, Malin [facility] CONSENT/REFUSAL FOR DIAGNOSIS AND TREATMENT 2022-05-21 05:01:00 Doctor Unassigned, Malin [facility] Encounters Start Date/Time End Date/Time Encounter Type Admission Type Attending [facility] Emergency Department Facility Care Department Encounter ID Source 2021-09-07 06:31:07 Emergency [facility] [id number] General acute hospital 2021-09-06 06:31:50 Emergency [facility] [id number] General acute hospital 2021-09-05 17:58:07 Emergency [facility] [id number] General acute hospital 2021-09-05 17:42:54 Emergency [facility] [id number] General acute hospital 2023-12-16 00:00:00 2023-12-16 00:00:00 [facility]ill [facility] 1..840.114 350.1.13.10 4.2.7.2.686 [id number] General acute hospital 2023-04-28 11:15:00 2023-04-28 11:15:00 Outpatient SAMANTHA NICOLAS [facility] [id number] General acute hospital 2023-04-21 14:00:00 2023-04-21 14:00:00 Outpatient SAMANTHA NICOLAS [facility] [id number] General acute hospital 2023-01-19 00:00:00 2023-01-19 00:00:00 Refill Moiz [facility]elslie [facility] 1..840.114 350.1.13.10 4.2.7.2.686 [id number] General acute hospital 2022-12-26 00:00:00 2022-12-26 00:00:[address]azzy [facility] 1..840.114 350.1.13.10 4.2.7.2.686 [id number] General acute hospital 2022-12-15 00:00:00 2022-12-15 00:00:00 Refill BlayneJazzy [facility] 1.284.114 350.1.13.10 4.2.7.2.686 [id number] General acute hospital 2022-09-25 00:00:00 2022-09-25 00:00:00 Letter (Out) Tigist Mahoneytany [facility] 1.84114 350.1.13.10 4.2.7.2.686 [id number] General acute hospital 2022-09-20 09:40:00 2022-09-20 10:33:37 Outpatient R LAURY MAHONEY [facility] [id number] General acute hospital 2022-09-20 09:40:00 2022-09-20 10:33:37 Urgent Care Laury Mahoney Unknown, Attending [facility] 1.114 350.1.13.10 4.2.7.2.686 [id number] General acute hospital 2022-09-20 00:00:00 2022-09-20 00:00:00 Orders Only Doctor Unassigned, Malin [facility] 1.114 350.1.13.10 4.2.7.2.686 [id number] General acute hospital 2022-09-20 00:00:00 2022-09-20 00:00:00 Letter (Out) Lorelei, Laury [facility] 1.284.114 350.1.13.10 4.2.7.2.686 [id number] General acute hospital 2022-09-18 08:30:00 2022-09-18 08:30:00 Outpatient R BLAYNE, JAZZY [facility] [id number] General acute hospital 2022-08-24 00:00:00 2022-08-24 00:00:00 Refill Jazzy Michaels [facility] 1..840.114 350.1.13.10 4.2.7.2.686 [id number] General acute hospital 2022-07-31 16:30:00 2022-07-31 16:30:00 Outpatient R BLAYNEJAZZY [facility] [id number] General acute hospital 2022-05-21 16:00:00 2022-05-21 17:00:00 Nurse Visit Therapy, [facility] Merrill Gale [facility] 1..840.114 350.1.13.10 4.2.7.2.686 [id number] General acute hospital 2022-05-21 16:00:00 2022-05-21 16:00:00 Outpatient MERRILL GALDAMEZ [facility] [id number] General acute hospital 2022-05-21 00:00:00 2022-05-21 00:00:00 Orders Only Doctor Unassigned, Malin [facility] 1.840.114 350.1.13.10 4.2.7.2.686 [id number] General acute hospital 2022-05-20 18:00:00 2022-05-20 18:37:24 Urgent Care Monie Taveras [facility] 1..840.114 350.1.13.10 4.2.7.2.686 [id number] General acute hospital 2022-05-20 18:00:00 2022-05-20 18:37:24 Outpatient R MONIE TAVERAS [facility] [id number] General acute hospital 2022-05-20 18:00:00 2022-05-20 18:00:00 Outpatient R MONIE TAVERAS [facility] [id number] General acute hospital 2022-05-20 17:30:00 2022-05-20 17:30:00 [id number] 2022-04-20 14:30:00 2022-04-20 14:45:00 Laboratory Only Only, Ang Db Test Tigist Mahoneytany [facility] 1.2.840.114 350.1.13.10 4.2.7.2.686 [id number] General acute hospital 2022-04-20 14:30:00 2022-04-20 14:20:16 Outpatient R TIGIST MAHONEYTANY [facility] [id number] General acute hospital 2022-04-20 00:00:00 2022-04-20 00:00:00 Patient Secure Msg Elise Benítez [facility] 1.2840.114 350.1.13.10 4.2.7.2.686 [id number] General acute hospital 2022-04-16 00:00:00 2022-04-16 00:00:00 Patient Secure Msg Jazzy Michaels Nate [facility] 1.2.840.114 350.1.13.10 4.2.7.2.686 [id number] General acute hospital 2022-04-14 00:00:00 2022-04-14 00:00:00 Telephone Jazzy Michaels [facility] 1.2840.114 350.1.13.10 4.2.7.2.686 [id number] General acute hospital 2022-03-23 00:00:00 2022-03-23 00:00:[address] [facility] 1.2.840.114 350.1.13.10 4.2.7.2.686 [id number] General acute hospital 2022-03-20 13:15:00 2022-03-20 13:30:00 Superintendent General Visit Lab, Ang - Db [facility]azzy [facility] 1..840.114 350.1.13.10 4.2.7.2.686 [id number] General acute hospital 2022-03-20 12:30:00 2022-03-20 13:16:24 Outpatient R MOIZ MICHAELSLIE [facility] [id number] General acute hospital 2022-03-20 12:30:00 2022-03-20 13:16:24 Office Visit [facility]az[facility] 1..840.114 350.1.13.10 4.2.7.2.686 [id number] General acute hospital 2022-03-20 12:30:00 2022-03-20 13:16:24 Outpatient R MOIZ MICHAELSLIE [facility] [id number] General acute hospital 2022-03-19 00:00:00 2022-03-19 00:00:00 Refill [place] Froylan Sullivan [facility] 1..840.114 350.1.13.10 4.2.7.2.686 [id number] General acute hospital 2022-03-14 00:00:00 2022-03-14 00:00:00 Refill Renetta Marcoful Nate [facility] 1.2.840.114 350.1.13.10 4.2.7.2.686 [id number] General acute hospital 2022-01-29 00:00:00 2022-01-29 00:00:00 Refjenny RenettaFroylan [facility] 1.2.840.114 350.1.13.10 4.2.7.2.686 [id number] General acute hospital 2021-12-15 10:30:00 2021-12-15 10:30:00 Outpatient FROYLAN LOPEZ [facility] [id number] General acute hospital 2021-12-11 00:00:00 2021-12-11 00:00:00 Telephone Samantha Michele [facility] 1..840.114 350.1.13.10 4.2.7.2.686 [id number] General acute hospital 2021-12-11 00:00:00 2021-12-11 00:00:00 Orders Only Doctor Unassigned, Malin [facility] 1.2.840.114 350.1.13.10 4.2.7.2.686 [id number] General acute hospital 2021-12-09 00:00:00 2021-12-09 00:00:00 Telephone Samantha Michele eliz [facility] 1.2.840.114 350.1.13.10 4.2.7.2.686 [id number] General acute hospital 2021-12-08 16:00:00 2021-12-08 16:00:00 Outpatient R SAMANTHA MICHELE [facility] [id number] General acute hospital 2021-12-08 16:00:00 2021-12-08 16:00:00 Office Visit Samantha Michele [facility] 1.2.840.114 350.1.13.10 4.2.7.2.686 [id number] General acute hospital 2021-12-08 16:00:00 2021-12-08 15:54:45 Outpatient R SAMANTHA MICHELE [facility] [id number] General acute hospital 2021-08-28 10:00:00 2021-08-28 10:00:00 Outpatient R GIOVANNA HU [facility] [id number] General acute hospital 2021-08-26 00:00:00 2021-08-26 00:00:00 Patient Secure Msg Doctor Unassigned, Malin [facility] 1.2.840.114 350.1.13.10 4.2.7.2.686 [id number] General acute hospital 2021-08-14 00:00:00 2021-08-14 00:00:00 Outpatient R GIOVANNA HU [facility] [id number] General acute hospital 2021-08-04 08:00:00 2021-08-04 08:00:00 Outpatient R GIOVANNA HU [facility] [id number] General acute hospital 2021-07-17 08:30:00 2021-07-17 23:59:00 Hospital Encounter Giovanna Hu [facility] 1..840.114 350.1.13.10 4.2.7.2.686 [id number] General acute hospital 2021-07-17 13:50:39 2021-07-17 15:15:50 Office Visit Gioavnna Hu [facility] 1.2.840.114 350.1.13.10 4.2.7.2.686 [id number] General acute hospital 2021-07-17 14:30:00 2021-07-17 14:30:00 Outpatient R GIOVANNA HU [facility] [id number] General acute hospital 2021-07-15 14:31:51 2021-07-15 16:02:42 Office Visit [place] balderramakath[place]den Sullivan [facility] 1..840.114 350.1.13.10 4.2.7.2.686 [id number] General acute hospital 2021-07-15 14:30:00 2021-07-15 14:30:00 Outpatient R RENETTABARBI BALDERRAMAKATHRYNALDEN [facility] [id number] General acute hospital 2021-06-18 08:46:18 2021-06-18 09:01:18 Superintendent General Visit 2, Adc Lab Froylan Jackson [facility] Building 1..840.114 350.1.13.10 4.2.7.2.686 [id number] General acute hospital 2021-06-18 08:00:00 2021-06-18 08:00:00 Outpatient R RENETTABARBI BALDERRAMALISSETTE [facility] [id number] General acute hospital 2021-06-16 00:00:00 2021-06-16 00:00:00 Patient Secure Msg Froylan Jackson [facility] Office [facility] 1..840.114 350.1.13.10 4.2.7.2.686 [id number] General acute hospital 2021-06-13 13:10:30 2021-06-13 13:49:12 Office Visit [place] balderrama [facility] Office [facility] 1..840.114 350.1.13.10 4.2.7.2.686 [id number] General acute hospital 2021-06-13 13:00:00 2021-06-13 13:00:00 Outpatient R RENETTAFROYLAN BALDERRAMA [facility] [id number] General acute hospital 2021-06-12 00:00:00 2021-06-12 00:00:00 Refill Marco Jacksonful A [facility] 1.840.114 350.1.13.10 4.2.7.2.686 [id number] General acute hospital 2021-06-11 00:00:00 2021-06-11 00:00:00 Refill Marco Jacksonful [facility] 1.0.114 350.1.13.10 4.2.7.2.686 [id number] General acute hospital 2021-06-10 00:00:00 2021-06-10 00:00:00 Orders Only Doctor Unassigned, Malin [facility] 1.0.114 350.1.13.10 4.2.7.2.686 [id number] General acute hospital 2021-05-15 00:00:00 2021-05-15 00:00:00 Refill Marco Jacksonful [facility] Office Building One 1.0.114 350.1.13.10 4.2.7.2.686 [id number] 2021-05-15 00:00:00 2021-05-15 00:00:00 Refill Marco Jacksonful Nate [facility] Office Building One .0.114 350.1.13.10 4.2.7.2.686 [id number] 044 [id number] General acute hospital 2021-04-22 00:00:00 2021-04-22 00:00:00 Refill Marco Jacksonful Nate [facility] Office Building One .0.114 350.1.13.10 4.2.7.2.686 [id number] 044 [id number] 2021-04-22 00:00:00 2021-04-22 00:00:00 [facility]ad [facility] 1.2.840.114 350.1.13.10 4.2.7.2.686 [id number] 044 [id number] General acute hospital 2021-03-27 00:00:00 2021-03-27 00:00:00 Orders Only Doctor Unassigned, Malin [facility] 1.2.840.114 350.1.13.10 4.2.7.2.686 [id number] 2021-03-27 00:00:00 2021-03-27 00:00:00 Orders Only Doctor Unassigned, Malin [facility] 1.2.840.114 350.1.13.10 4.2.7.2.686 [id number] General acute hospital 2021-03-18 13:45:00 2021-03-18 13:45:00 Outpatient R DANYELL ALDRICH [facility] [id number] General acute hospital 2021-03-08 13:27:21 2021-03-08 23:59:00 Hospital Encounter Kaye Lee [facility] 1.2.840.114 350.1.13.10 4.2.7.2.686 [id number] 2021-03-08 13:27:21 2021-03-08 23:59:00 Hospital Encounter Kaye Lee [facility] 1.2.840.114 350.1.13.10 4.2.7.2.686 [id number] General acute hospital 2021-03-08 13:27:21 2021-03-08 23:59:00 Outpatient R KAYE LEE [facility] [id number] General acute hospital 2021-03-08 00:00:00 2021-03-08 00:00:00 Outpatient R KAYE LEE [facility] [id number] General acute hospital 2021-03-04 09:45:00 2021-03-04 09:45:00 Outpatient Lily ALDRICHDANYELL [facility] [id number] General acute hospital 2021-03-04 09:15:02 2021-03-04 09:30:02 Office Visit SanjuanaDanyell [facility] [place] 1.2.840.114 350.1.13.10 4.2.7.2.686 [id number] General acute hospital 2021-03-04 09:15:02 2021-03-04 09:30:02 Office Visit Sanjuana [facility] [place] 1.2.840.114 350.1.13.10 4.2.7.2.686 [id number] 2021-03-04 00:00:00 2021-03-04 00:00:00 Letter (Out) Sanjuana [facility] [place] 1.2.840.114 350.1.13.10 4.2.7.2.686 [id number] General acute hospital 2021-03-04 00:00:00 2021-03-04 00:00:00 Letter (Out) Sanjuana [facility] [place] 1.2.840.114 350.1.13.10 4.2.7.2.686 [id number] 2021-02-27 00:00:00 2021-02-27 00:00:00 Telephone SanjuanaDanyell [facility] [place] 1.2.840.114 350.1.13.10 4.2.7.2.686 [id number] General acute hospital 2021-02-18 16:00:54 2021-02-18 16:15:54 Office Visit AldrichDanyell [facility] [place] 1.2.840.114 350.1.13.10 4.2.7.2.686 [id number] General acute hospital 2021-02-18 15:45:00 2021-02-18 15:45:00 Outpatient R DANYELL ALDRICH [facility] [id number] General acute hospital 2021-02-18 00:00:00 2021-02-18 00:00:00 Letter (Out) [facility] 1.2840.114 350.1.13.10 4.2.7.2.686 [id number] General acute hospital 2021-02-18 00:00:00 2021-02-18 00:00:00 Froylan Maurice [facility] One 1.840.114 350.1.13.10 4.2.7.2.686 [id number] General acute hospital 2021-02-18 00:00:00 2021-02-18 00:00:00 Letter (Out) Sanjuana [facility] 1.2840.114 350.1.13.10 4.2.7.2.686 [id number] General acute hospital 2021-02-18 00:00:00 2021-02-18 00:00:00 Letter (Out) Sanjuana [facility] 1.2840.114 350.1.13.10 4.2.7.2.686 [id number] 2021-02-07 00:00:00 2021-02-07 00:00:00 Patient Secure Msg Doctor Unassigned, Malin [facility] 1.2840.114 350.1.13.10 4.2.7.2.686 [id number] General acute hospital 2021-02-06 00:00:00 2021-02-06 00:00:00 Orders Only Doctor Unassigned, Malin [facility] 1.2.840.114 350.1.13.10 4.2.7.2.686 [id number] General acute hospital 2021-01-29 13:24:02 2021-01-29 23:59:00 Hospital Encounter Kaye Lee [facility] 1.2.840.114 350.1.13.10 4.2.7.2.686 [id number] General acute hospital 2021-01-29 13:42:53 2021-01-29 14:40:25 Office Visit [facility]e [facility] 1.2.840.114 350.1.13.10 4.2.7.2.686 [id number] General acute hospital 2021-01-29 14:00:00 2021-01-29 14:00:00 Outpatient R KAYE LEE [facility] [id number] General acute hospital 2021-01-29 00:00:00 2021-01-29 00:00:00 Telephone Kaye Lee [facility] 1.2.840.114 350.1.13.10 4.2.7.2.686 [id number] General acute hospital 2021-01-28 00:00:00 2021-01-28 00:00:00 Orders Only Doctor Unassigned, Malin [facility] 1.2.840.114 350.1.13.10 4.2.7.2.686 [id number] General acute hospital 2021-01-28 00:00:00 2021-01-28 00:00:00 Orders Only Doctor Unassigned, Malin [facility] 1.2.840.114 350.1.13.10 4.2.7.2.686 [id number] 2021-01-27 00:00:00 2021-01-27 00:00:00 Patient Outreach Juanito Cunha [facility] 1.2.840.114 350.1.13.10 4.2.7.2.686 [id number] General acute hospital 2021-01-22 03:11:00 2021-01-22 04:23:00 Emergency Osiel Herzog [facility] 1.2.840.114 350.1.13.10 4.2.7.2.686 [id number] General acute hospital 2020-11-10 00:00:00 2020-11-10 00:00:00 Refill RenettaBarbilissette Nate [facility] Building 1.2.840.114 350.1.13.10 4.2.7.2.686 [id number] General acute hospital 2020-10-24 00:00:00 2020-10-24 00:00:00 Refjenny WashingtonBarbi balderramalissette [facility] Office Building One 1.2840.114 350.1.13.10 4.2.7.2.686 [id number] General acute hospital 2020-09-26 02:51:00 2020-09-26 04:19:00 Emergency Osiel Herzog [facility] 1.2.840.114 350.1.13.10 4.2.7.2.686 [id number] General acute hospital 2020-09-16 00:00:00 2020-09-16 00:00:00 Patient Secure Msg Barbi Jacksonkathrynalden [facility] Office Building One 1.2.840.114 350.1.13.10 4.2.7.2.686 [id number] General acute hospital 2020-09-01 00:00:00 2020-09-01 00:00:00 Case Management Froylan Jackson [facility] Office Building One 1.20.114 350.1.13.10 4.2.7.2.686 [id number] General acute hospital 2020-08-23 11:19:20 2020-08-23 11:34:20 Superintendent General Visit 2, Adc Lab Froylan Jackson [facility] Building 1.20.114 350.1.13.10 4.2.7.2.686 [id number] General acute hospital 2020-08-23 11:15:00 2020-08-23 11:15:00 Outpatient R FROYLAN JACKSON [facility] [id number] General acute hospital 2020-08-22 11:26:11 2020-08-22 12:34:38 Office Visit Froylan Jackson [facility] Office Building One 1..114 350.1.13.10 4.2.7.2.686 [id number] General acute hospital 2020-08-22 11:15:00 2020-08-22 11:15:00 Outpatient R FROYLAN JACKSON [facility] [id number] General acute hospital 2020-07-25 01:05:00 2020-07-25 04:53:00 Emergency Osiel Herzog [facility] 1..114 350.1.13.10 4.2.7.2.686 [id number] General acute hospital 2020-07-25 00:00:00 2020-07-25 00:00:00 Patient Secure Msg Froylan Jackson [facility] Office Building One 1.2.114 350.1.13.10 4.2.7.2.686 [id number] General acute hospital 2020-07-23 16:26:2020-07-23 19:00:00 Emergency FabienBelem [facility] 1.2840.114 350.1.13.10 4.2.7.2.686 [id number] General acute hospital 2020-07-09 10:38:40 2020-07-09 11:43:19 Urgent Care Provider, [facility] Care Brando Lakhani [facility] Office Building One 1.20.114 350.1.13.10 4.2.7.2.686 [id number] General acute hospital 2020-07-09 11:00:00 2020-07-09 11:00:00 Outpatient R [facility] [id number] General acute hospital 2020-07-09 00:00:00 2020-07-09 00:00:00 Patient Secure Msg Froylan Jackson [facility] 1.0.114 350.1.13.10 4.2.7.2.686 [id number] General acute hospital 2020-06-17 00:00:00 2020-06-17 00:00:00 Refill Froylan Jackson [facility] Building 1.2840.114 350.1.13.10 4.2.7.2.686 [id number] General acute hospital 2020-05-28 00:00:00 2020-05-28 00:00:00 Telephone Froylan Jackson [facility] Office Building One 1.840.114 350.1.13.10 4.2.7.2.686 [id number] General acute hospital 2020-05-24 00:00:00 2020-05-24 00:00:00 Patient Secure Msg Doctor Unassigned, Malin [facility] 1.840.114 350.1.13.10 4.2.7.2.686 [id number] General acute hospital 2020-05-22 08:06:38 2020-05-22 11:38:07 Telemedici ne Visit Forylan Jackson [facility] Building 1.2.840.114 350.1.13.10 4.2.7.2.686 [id number] General acute hospital 2020-05-22 11:00:00 2020-05-22 11:00:00 Outpatient R BARBI JACKSONKATHRYNALDEN [facility] [id number] General acute hospital 2020-05-13 00:00:00 2020-05-13 00:00:00 Refill Froylan Jackson [facility] Building 1.2.840.114 350.1.13.10 4.2.7.2.686 [id number] General acute hospital 2020-05-13 00:00:00 2020-05-13 00:00:00 Telephone WashingtonBarbi balderramakathrynalden Sullivan [facility] Office Building One 1.2.840.114 350.1.13.10 4.2.7.2.686 [id number] General acute hospital 2020-04-03 00:00:00 2020-04-03 00:00:00 Refill Froylan Jackson [facility] Building 1.2.840.114 350.1.13.10 4.2.7.2.686 [id number] General acute hospital 2020-03-26 10:20:30 2020-03-26 13:57:54 Telemedici ne Visit Froylan Jackson [facility] Building 1.2.840.114 350.1.13.10 4.2.7.2.686 [id number] General acute hospital 2020-03-26 13:15:00 2020-03-26 13:15:00 [id number] acute hospital 2020-03-25 07:59:08 2020-03-25 11:47:11 Telemedici ne Visit Froylan Jackson [facility] Building 1..114 350.1.13.10 4.2.7.2.686 [id number] General acute hospital 2020-03-25 10:30:00 2020-03-25 10:30:00 Outpatient R BARBI JACKSONALDEN [facility] [id number] General acute hospital 2020-03-19 05:36:11 2020-03-20 11:05:00 Outpatient X [facility] [id number] General acute hospital 2020-03-19 05:36:11 2020-03-20 11:05:00 Emergency Osiel Herzogminnie Ace [facility] 1.114 350.1.13.10 4.2.7.2.686 [id number] General acute hospital 2020-03-19 15:45:00 2020-03-19 15:45:00 Outpatient R BARBI JACKSONALDEN [facility] [id number] General acute hospital 2020-03-18 00:00:00 2020-03-18 00:00:00 Telephone Froylan Jackson [facility] Office Building One 1..114 350.1.13.10 4.2.7.2.686 [id number] General acute hospital 2020-03-12 11:12:37 2020-03-12 11:32:37 Urgent Care Pob1, Acute Care Clinic Desi Lane [facility] Office Building One 1..114 350.1.13.10 4.2.7.2.686 [id number] General acute hospital 2020-03-12 11:20:00 2020-03-12 11:20:00 Outpatient R [facility] [id number] General acute hospital 2020-03-12 00:00:00 2020-03-12 00:00:00 Telephone Aleksandra Mcelroy [facility] Office Building One 1..840.114 350.1.13.10 4.2.7.2.686 [id number] General acute hospital 2020-03-12 00:00:00 2020-03-12 00:00:00 Letter (Out) [facility] One 1..840.114 350.1.13.10 4.2.7.2.686 [id number] General acute hospital 2020-03-11 10:49:42 2020-03-11 11:16:45 Urgent Care Pob1, Acute [facility] One 1.840.114 350.1.13.10 4.2.7.2.686 [id number] General acute hospital 2020-03-11 11:00:00 2020-03-11 11:00:00 Outpatient R BRANDO LAKHANI [facility] [id number] General acute hospital 2020-03-11 00:00:00 2020-03-11 00:00:00 Telephone [place], Acute Care [facility] Office Building One 1.840.114 350.1.13.10 4.2.7.2.686 [id number] General acute hospital 2019-06-27 15:15:00 2019-06-27 15:15:00 Outpatient [facility] [id number] [facility] 2019-05-30 15:30:00 2019-05-30 15:30:00 Outpatient [facility] [id number] [facility]
[2024-11-02] MEDS ORDERED: KETOROLAC 30 MG/ML INJ ONE (10:22)
[2024-11-02] MEDS ORDERED: ONDANSETRON 4 MG/2 ML VIAL ONE (10:22)
[2024-11-02] MEDS ORDERED: FAMOTIDINE 20 MG/2 ML VIAL IV ONE (10:22)
[2024-11-02] MEDS ORDERED: NA CHLORIDE 0.9% 1,000 ML ONE (10:23)
[2024-11-02 10:51] LABS: Absolute Eosinophils 0.3 K/uL (0-0.5); Absolute Lymphocytes (CBC) 1.2 K/uL (0.7-4.9); Absolute Neutrophil 10.1 K/uL (1.8-8.0); Basophils % 0.3 % (0-1.3); Eosinophils % 2.1 % (0-4.4); Hematocrit 53.2 % (39.6-49.0); Hemoglobin 17.1 g/dL (13.6-17.9); Lymphocytes % 9.3 % (15.3-44.8); MCH 28.4 pg (27.0-35.0); MCHC 32.2 g/dL (32.0-36.0); MCV 88.1 fL (80-100); MPV 8.5 fL (7.6-11.3); Monocytes % 7.9 % (3.3-12.3); Neutrophils % 80.4 % (41.7-73.7); Platelets 276 thou/uL (152-406); RBC Red Blood Cell Count 6.04 M/uL (4.33-5.43); Red Cell Distribution Width 14.1 % (12.1-15.2)
[2024-11-02 11:09] LABS: Albumin 3.5 g/dL (3.4-5.0); Albumin/Globulin Ratio 0.9 (1.1-1.8); Anion Gap 9.9 mEq/L (5.0-15.0); Bilirubin Total 1.7 mg/dL (0.2-1.0); Globulin 3.8 g/dL (2.3-3.5); Potassium 3.9 mEq/L (3.5-5.1); Protein, Total 7.3 g/dL (6.4-8.2); Troponin High Sensitivity 6.7 pg/mL (<58.9)
--- NOTE | 2024-11-02 12:04 | RAD REPORT ---
EXAMINATION: CT Abdomen Pelvis W Contrast CLINICAL INDICATION: Male, 44 years old. ABD PAIN TECHNIQUE: CT abdomen and pelvis was performed, after the administration of IV contrast, as [facility]. Axial, sagittal and coronal reconstructions were obtained. One or more of the following dose reduction techniques were used: Automated exposure control, adjustment of the mA and k V according to patient size, and iterative reconstruction. Unless otherwise specified, incidental findings do not require dedicated imaging follow-up. COMPARISON: No prior exam. FINDINGS: LOWER CHEST: The visualized lung bases are clear. LIVER: Mild fatty liver is present. No focal lesion or biliary dilataion is seen. BILIARY SYSTEM: No suspicious abnormalities. SPLEEN: Normal size. No focal lesion. PANCREAS: No mass, ductal dilation, or samir-pancreatic fluid. ADRENALS: Normal; no mass. KIDNEYS: Normal size and contour. No hydronephrosis. URINARY BLADDER: Unremarkable. GASTROINTESTINAL TRACT: No evidence of free air, significant intra-abdominal free fluid, bowel obstru ction or abscess. APPENDIX: Appendix not visualized, but no inflammatory changes in region of appendix. LYMPH NODES: No lymphadenopathy. MUSCULOSKELETAL: No acute or suspicious osseous abnormality. ADDITIONAL FINDINGS: None. IMPRESSION: No acute or concerning abnormalities seen in the abdomen or pelvis. Mild diffuse hepatic steatosis.
[2024-11-02 14:41] LABS: Sqamous Epithelial <5 /HPF (None Seen); Urine Bacteria None Seen /HPF (<20); Urine Bilirubin NEGATIVE (Negative); Urine Blood Negative (Negative); Urine Clarity Clear (Clear); Urine Color Yellow (Yellow); Urine Crystals Unidentified Few /HPF (None Seen); Urine Culture Reflex Order NOT NEEDED; Urine Glucose NEGATIVE (Negative); Urine Ketones NEGATIVE (Negative); Urine Microscopic Reflex YN ORDER UMIC; Urine Mucus Slight /HPF (None Seen); Urine Nitrite NEGATIVE (Negative); Urine Protein TRACE (Negative); Urine RBC <5 /HPF (None Seen); Urine Urobilinogen Normal (Normal); Urine WBC <5 /HPF (<5); Urine pH 6.5 (5.0-7.0)
[2024-11-02 14:47] LABS: Specific Gravity > 1.030 (1.005-1.030)
--- NOTE | 2024-11-02 15:04 | EDPHYS ---
Physician Documentation [facility] Name: Francisco Dean Age: 44 yrs Sex: Male : 1980 Arrival Date: 11/02/2024 Time: 09:54 Bed 13 Private MD: ED Physician Lois Chang HPI: 11/02 10:22 This 44 yrs old Male presents to ER via EMS with complaints of Abdominal Pain. sd2 10:22 44 yo M presents via EMS with CC of upper abdominal pain that started yesterday after sd2 eating a donut. Denies fever, vomiting. Reports diarrhea yesterday and ongoing with nausea. No known sick contacts. Reports had some chest pain that was alleviated by rubbing on the area and that he has had this intermittently prior to being sick as well. Also has hx of reflux but has not taken any medications for this. Took pepto-bismol at home this morning for symptoms.. Historical: - Allergies: 10:09 No Known Allergies; ph - PMHx: 10:09 diabetes mellitus; Hypertensive disorder; knee pain; ph - Immunization history:: Adult Immunizations unknown. - Infectious Disease History:: Denies. - Social history:: Smoking status: Reported history of juuling and/or vaping. ROS: 10:22 Constitutional: Negative for fever, chills, and weight loss, Eyes: Negative for injury, sd2 pain, redness, and discharge, Cardiovascular: Negative for chest pain, palpitations, and edema, Respiratory: Negative for shortness of breath, cough, wheezing. 10:22 MS/Extremity: Negative for injury and deformity, Skin: Negative for injury, rash, and discoloration, Neuro: Negative for headache, numbness and tingling. 10:22 Abdomen/GI: Positive for abdominal pain, nausea, diarrhea, Negative for vomiting, 10:22 MS/extremity: Positive for Exam: 10:22 Constitutional: This is a well developed, well nourished patient who is awake, alert, sd2 and in no acute distress. Head/Face: Normocephalic, atraumatic. Eyes: EOMI, normal conjunctiva bilaterally Chest/axilla: Normal chest wall appearance and motion. Nontender with no deformity. Cardiovascular: Regular rate and rhythm with a normal S1 and S2. No gallops, murmurs, or rubs. 2+ distal pulses. Respiratory: Lungs have equal breath sounds bilaterally, clear to auscultation and percussion. No rales, rhonchi or wheezes noted. No increased work of breathing, no retractions or nasal flaring. Abdomen/GI: Soft, ND, epigastric TTP, mild, no rebound, guarding or distention Skin: Warm, dry with normal turgor. Normal color with no rashes, no lesions, and no evidence of cellulitis. MS/ Extremity: Pulses equal, no cyanosis. Neurovascular intact. Full, normal range of motion. Psych: Awake, alert, with orientation to person, place and time. Behavior, mood, and affect are within normal limits. 10:37 ECG was reviewed by the Attending Physician. NSR, rate 94, no STEMI criteria sd2 Vital Signs: 10:03 BP 146 / 96; Pulse 95; Resp 18; Temp 97.9; Pulse Ox 98% on R/A; Weight 163.29 kg; ph Height 6 ft. 0 in. ; 12:31 BP 111 / 55; Pulse 87; Resp 18; Pulse Ox 96% on R/A; ph 14:00 BP 118 / 58; Pulse 84; Resp 18; Pulse Ox 99% on R/A; ph 15:22 BP 120 / 60; Pulse 86; Resp 16; Temp 97.5; Pulse Ox 98% on R/A; ph 10:03 Body Mass Index 48.82 (163.29 kg, 182.88 cm) ph MDM: 10:12 Medical Screening Exam initiated sd2 10:22 Differential diagnosis: gastritis, GE, diverticulitis, GB pathology, dehydration, sd2 electrolyte abnormality among others. Data reviewed: vital signs, nurses notes, lab test result(s), EKG, radiologic studies. I considered the following discharge prescriptions or medication management in the emergency department Medications were administered in the Emergency Department. See MAR. Historians other than the Patient: EMS: provides initial report. 15:03 Counseling: I had a detailed discussion with the patient and/or guardian regarding the sd2 historical points, exam findings, and any diagnostic results supporting the discharge/admit diagnosis, lab results, radiology results, the need for outpatient follow up, to return to the emergency department if symptoms worsen or persist or if there are any questions or concerns that arise at home. ED course: Labs and imaging reviewed. No acute findings. Pt feeling improved. Advised of results and need for outpatient follow up. Verbalizes understanding of dc plan and strict return precautions. . 11/02 10:15 Order name: CBC with Diff; Complete Time: 12:12 sd2 11/02 10:15 Order name: CMP; Complete Time: 12:12 sd2 11/02 10:15 Order name: Lipase; Complete Time: 12:12 sd2 11/02 10:15 Order name: Troponin High Sensitivity; Complete Time: 12:12 sd2 11/02 10:15 Order name: Urinalysis w/ reflexes; Complete Time: 15:02 sd2 11/02 10:15 Order name: CT Abd/Pelvis - IV Contrast Only; Complete Time: 12:12 sd2 11/02 10:15 Order name: EKG - Nurse/Tech; Complete Time: 10:52 sd2 Administered Medications: 10:52 Drug: Ketorolac IVP 15 mg IVP once Route: IVP; Site: right antecubital; ph 13:51 Follow up: Response: No adverse reaction; Pain is decreased ph 10:52 Drug: Ondansetron IVP 4 mg IVP once; over 2 minutes Route: IVP; Site: right antecubital;ph 13:51 Follow up: Response: No adverse reaction; Nausea is decreased ph 10:52 Drug: Famotidine IVP 20 mg IVP once; dilute with 10 mL 0.9% NaCl; give over 2 minutes ph Route: IVP; Site: right antecubital; 13:51 Follow up: Response: No adverse reaction ph 10:52 Drug: NS 0.9% IV 1000 ml IV at 1 bolus Per protocol; to be given as a bolus over 60 ph minutes Route: IV; Rate: 1 bolus; Site: right antecubital; 12:00 Follow up: Response: No adverse reaction; IV Status: Completed infusion; IV Intake: ph 1000ml Disposition Summary: 11/02/24 15:04 Discharge Ordered Problem: new sd2 Symptoms: have improved sd2 Condition: Stable sd2 Diagnosis - Upper abdominal pain, unspecified sd2 - Diarrhea, unspecified sd2 Followup: sd2 - With: Private Physician - When: 2 - 3 days - Reason: Recheck today's complaints, Continuance of care, Re-evaluation by your physician Discharge Instructions: - Discharge Summary Sheet sd2 - Abdominal Pain, Adult sd2 - Food Choices for Gastroesophageal Reflux Disease, Adult sd2 - Gastroesophageal Reflux Disease, Adult sd2 Forms: - Work release form ph - Medication Reconciliation Form sd2 - Antibiotic Education sd2 - Prescription Opioid Use sd2 - Patient Portal Instructions sd2 - Leadership Thank You Letter sd2 Prescriptions: - Pepcid 20 mg Oral tablet - take 1 tablet ORAL route once daily As needed; 20 tablet; Refills: 0, Product sd2 Selection Permitted Signatures: Dispatcher [employer] Mila Rodney RN [facility] sd2 Corrections: (The following items were deleted from the chart) 10:11 10:09 PMHx: L3; ph ph 10:11 10:09 PMHx: bulging discs, L3-5 (knee pain); ph ph 10:11 10:09 PMHx: L3; ph ph
--- NOTE | 2024-11-02 15:04 | ER ---
Nurse's Notes [facility] Name: Francisco Dean Age: 44 yrs Sex: Male : 1980 Arrival Date: 11/02/2024 Time: 09:54 Bed 13 Private MD: Diagnosis: Upper abdominal pain, unspecified;Diarrhea, unspecified Presentation: 11/02 10:03 Chief complaint: EMS states: Pt c/o abdominal pain, nausea and diarrhea that started ph yesterday, denies vomiting or fever. Coronavirus screen: Vaccine status: Patient reports being unvaccinated. Ebola Screen: No symptoms or risks identified at this time. Initial Sepsis Screen: Does the patient meet any 2 criteria? No. Patient's initial sepsis screen is negative. Does the patient have a suspected source of infection? No. Patient's initial sepsis screen is negative. Risk Assessment: Do you want to hurt yourself or someone else? Patient reports no desire to harm self or others. Onset of symptoms was November 02, 2024. 10:03 Method Of Arrival: EMS: [facility] 10:03 Acuity: [place] 3 ph Triage Assessment: 10:08 General: Appears in no apparent distress. uncomfortable, obese, well groomed, Behavior ph is calm, cooperative, appropriate for age. Pain: Complains of pain in epigastric area, right upper quadrant and left upper quadrant. Neuro: Level of Consciousness is awake, alert, obeys commands, Oriented to person, place, time, situation. Cardiovascular: Capillary refill < 3 seconds in bilateral fingers Patient's skin is warm and dry. Respiratory: Airway is patent Respiratory effort is even, unlabored. GI: Abdomen is round non-distended, Bowel sounds present X 4 quads. Abd is soft X 4 quads Abdomen is tender to palpation in epigastric area, right upper quadrant and left upper quadrant. GI: Reports upper abdominal pain, diarrhea, nausea. Derm: Skin is pink, warm \T\ dry. Musculoskeletal: Circulation, motion, and sensation intact. Range of motion: intact in all extremities. Historical: - Allergies: 10:09 No Known Allergies; ph - PMHx: 10:09 diabetes mellitus; Hypertensive disorder; knee pain; ph - Immunization history:: Adult Immunizations unknown. - Infectious Disease History:: Denies. - Social history:: Smoking status: Reported history of juuling and/or vaping. Screenin:46 [facility] ED Fall Risk Assessment (Adult) History of falling in the last 3 months, ph including since admission No falls in past 3 months (0 pts) Confusion or Disorientation No (0 pts) Intoxicated or Sedated No (0 pts) Impaired Gait No (0 pts) Mobility Assist Device Used No (0 pt) Altered Elimination No (0 pt) Score/Fall Risk Level 0 - 2 = Low Risk Oriented to surroundings, Maintained a safe environment, Hourly rounding (assess needs \T\ fall precautionary measures) done. Abuse screen: Denies threats or abuse. Has been threatened or abused. Nutritional screening: No deficits noted. Tuberculosis screening: No symptoms or risk factors identified. Assessment: 10:46 General: SEE TRIAGE ASSESSMENT. ph 13:00 Reassessment: Patient appears in no apparent distress at this time. Patient and/or ph family updated on plan of care and expected duration. Pain level reassessed. Patient is alert, oriented x 3, equal unlabored respirations, skin warm/dry/pink. 14:51 Reassessment: Patient appears in no apparent distress at this time. Patient and/or ph family updated on plan of care and expected duration. Pain level reassessed. Patient is alert, oriented x 3, equal unlabored respirations, skin warm/dry/pink. Patient states feeling better. Vital Signs: 10:03 BP 146 / 96; Pulse 95; Resp 18; Temp 97.9; Pulse Ox 98% on R/A; Weight 163.29 kg; ph Height 6 ft. 0 in. ; 12:31 BP 111 / 55; Pulse 87; Resp 18; Pulse Ox 96% on R/A; ph 14:00 BP 118 / 58; Pulse 84; Resp 18; Pulse Ox 99% on R/A; ph 15:22 BP 120 / 60; Pulse 86; Resp 16; Temp 97.5; Pulse Ox 98% on R/A; ph 10:03 Body Mass Index 48.82 (163.29 kg, 182.88 cm) ph ED Course: 10:02 Patient arrived in ED. ph 10:05 Triage completed. ph 10:07 Mila Love, RN is Primary Nurse. ph 10:09 Arm band placed on Patient placed in an exam room, on a stretcher, on pulse oximetry. ph 10:12 Lois Chang MD is Attending Physician. sd2 10:46 Initial lab(s) drawn, by me, sent to lab. EKG done, by ED staff, reviewed by Tracey FOSTER ph D. Inserted saline lock: 22 gauge in right antecubital area, using aseptic technique. Blood collected. Flushed with 10 mL NS. 10:47 Patient has correct armband on for positive identification. Bed in low position. Call ph light in reach. Side rails up X 1. Pulse ox on. NIBP on. Door closed. Noise minimized. Warm blanket given. 10:47 Provided Education on: Use of call light and estimated time for test results. ph 10:52 CBC with Diff Sent. ph 10:52 Lipase Sent. ph 10:52 CMP Sent. ph 10:52 Troponin High Sensitivity Sent. ph 11:24 CT Abd/Pelvis - IV Contrast Only In Process Unspecified. EDMS 13:50 No provider procedures requiring assistance completed. ph 15:22 IV discontinued, intact, bleeding controlled, No redness/swelling at site. Pressure ph dressing applied. Administered Medications: 10:52 Drug: Ketorolac IVP 15 mg IVP once Route: IVP; Site: right antecubital; ph 13:51 Follow up: Response: No adverse reaction; Pain is decreased ph 10:52 Drug: Ondansetron IVP 4 mg IVP once; over 2 minutes Route: IVP; Site: right antecubital;ph 13:51 Follow up: Response: No adverse reaction; Nausea is decreased ph 10:52 Drug: Famotidine IVP 20 mg IVP once; dilute with 10 mL 0.9% NaCl; give over 2 minutes ph Route: IVP; Site: right antecubital; 13:51 Follow up: Response: No adverse reaction ph 10:52 Drug: NS 0.9% IV 1000 ml IV at 1 bolus Per protocol; to be given as a bolus over 60 ph minutes Route: IV; Rate: 1 bolus; Site: right antecubital; 12:00 Follow up: Response: No adverse reaction; IV Status: Completed infusion; IV Intake: ph 1000ml Medication: 10:47 VIS not applicable for this client. ph Intake: 12:00 IV: 1000ml; Total: 1000ml. ph Outcome: 15:04 Discharge ordered by . sd2 15:22 Discharged to home ambulatory, with significant other, ph 15:22 Condition: good 15:22 Discharge instructions given to patient, significant other, Instructed on discharge instructions, follow up and referral plans. medication usage, Demonstrated understanding of instructions, follow-up care, medications, Prescriptions given X 1, 15:22 Patient left the ED. ph Signatures: Dispatcher [employer] Mila Rodney RN RN ph Lois Chang MD MD sd2 Corrections: (The following items were deleted from the chart) 10:05 10:03 BP 146 / 96; Pulse 18bpm; Resp 18bpm; Pulse Ox 98% RA; Temp 97.9F; 163.29 kg; ph Height 6 ft. 0 in.; BMI: 48.8; ph 10:11 10:09 PMHx: L3; ph ph 10:11 10:09 PMHx: bulging discs, L3-5 (knee pain); ph ph 10:11 10:09 PMHx: L3; ph ph
[2024-11-02 15:34] VITALS: BP 120/60; TEMP 97.5; O2SAT 98
--- NOTE | 2024-11-06 11:22 | EKG ---
Test Date: 2024-11-02 Test Time: 10:31:22 Office Asst: IZAIAH MEASUREMENT RESULTS: Intervals: Rate: 94 WV: 144 QRSD: 94 QT: 328 QTc: 410 [place]: P: 44 WV: 144 QRS: -24 T: 45 INTERPRETIVE STATEMENTS: Normal sinus rhythm Normal ECG Compared to ECG 09/12/2024 01:18:53 No significant changes Electronically Signed On 11-06-24 11:16:02 [employer] by Maxi Mcneal
== END 2024-11-02 15:22 | disposition home or self-care (01) ==
LOC: ER 09:54
DX: R10.10 Upper abdominal pain, unspecified (principal); R19.7 Diarrhea, unspecified; E11.9 Type 2 diabetes mellitus without complications; I10 Essential (primary) hypertension
CPT/HCPCS: 96361; 93005; 85025; 81001; 36415; 84484; 83690; 80053; 74177; 96375; 96374; 99285; Q9967; J2405; J7030